=== PATIENT | female | born 1945 ===

== ENCOUNTER 2020-12-01 21:46 | Inpatient (IN) | payer MEDICARE ==
[2020-12-02] MEDS: ACETAMINOPHEN 325 MG TAB PO PRN (02:33)
[2020-12-02] MEDS: traZODone 50 MG TAB PO SCH ×2 (02:33→21:07)
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
--- NOTE | 2020-12-02 11:58 | Consultation ---
History of Present Illness - Reason for Consult Consult date: 12/02/20 Medical management Requesting physician: VIKAS GIBBONS - History of Present Illness 75 YO Female with Vascular Dementia with Behavioral Disturbance, Cerebral Atherosclerosis, HTN, DM, GERD, WILFREDO, UTI diagnosed prior to admission and treated with Bactrim admitted to [facility] for Psychiatric Stabilization. Patient seen and evaluated in the recreation room. Patient resting comfortably and denies complaints. Patient denies fever, chills, chest pain, palpitation, productive cough, skin rash, recent ill contacts, or known exposure to COVID-19. No reported nursing events. Patient cooperative with exam and interview. Past History Past Medical History: diabetes, GERD, hypertension, other (See HPI) Past Surgical History: hysterectomy (Lumbar fusion, shoulder surgery), hernia repair Social history: . denies: smoking, alcohol abuse, prescription drug abuse Family history: diabetes, hypertension Medications and Allergies Allergies Allergy/AdvReac Type Severity Reaction Status Date / Time codeine Allergy Unknown Verified 12/01/20 22:03 morphine Allergy Unknown Verified 12/01/20 22:06 NSAIDS (Non-Steroidal Allergy Unknown Verified 12/01/20 22:06 Anti-Inflamma Home Medications Medication Instructions Recorded Confirmed Last Taken Type ARIPiprazole [Abilify] 20 mg PO HS 12/01/20 12/01/20 Unknown History Albuterol Sulfate [Proventil Hfa] 90 mcg IH Q6H 12/01/20 12/01/20 Unknown History Benztropine [Cogentin] 2 mg PO BID 12/01/20 12/01/20 Unknown History Budesonide-Formoterol 160-4.5 2 puff INHALATION BID 12/01/20 12/01/20 Unknown History Citalopram [Celexa] 20 mg PO HS 12/01/20 12/01/20 Unknown History Fluticasone/Umeclidin/Vilanter 1 puff INHALATION DAILY 12/01/20 12/01/20 Unknown History Gabapentin 300 mg PO BID 12/01/20 12/01/20 Unknown History Levalbuterol HCl [Xopenex] 1 ampul TID 12/01/20 12/01/20 Unknown History Losartan-Hctz 100-25 mg Tab 1 tab PO DAILY 12/01/20 12/01/20 Unknown History Mirabegron [Myrbetriq] 50 mg PO QDAY 12/01/20 12/01/20 Unknown History Multivitamin Tab [Multiple Vitamin 1 tab PO DAILY 12/01/20 12/01/20 Unknown History TAB (Theragran)] amLODIPine [Norvasc] 10 mg PO DAILY 12/01/20 12/01/20 Unknown History donepeziL [Aricept] 5 mg PO HS 12/01/20 12/01/20 Unknown History hydrOXYzine HCL [Atarax] 1 tab PO Q8H PRN 12/01/20 12/01/20 Unknown History lamoTRIgine [LaMICtal] 200 mg PO HS 12/01/20 12/01/20 Unknown History oxyCODONE /ACETAMINOPHEN [Percocet 1 tab PO Q6HR PRN 12/01/20 12/01/20 Unknown History 5/325] Active Meds: Active Medications Acetaminophen (Acetaminophen 325 Mg Tab) 650 mg PO Q6H PRN PRN Reason: Pain, Mild (1-3) Last Admin: 12/02/20 02:33 Dose: 650 mg Documented by: Melatonin (Melatonin 5 Mg Tab) 5 mg PO QHS PRN PRN Reason: Sleep Trazodone HCl (Trazodone 50 Mg Tab) 50 mg PO QHS BHAVESH Last Admin: 12/02/20 02:33 Dose: 50 mg Documented by: Review of Systems Constitutional: no weight loss, no weight gain, no fever Ears, nose, mouth and throat: no ear pain, no ear discharge, no decreased hearing, no nasal congestion, no nasal discharge Breasts: no change in shape, no swelling, no mass Cardiovascular: no chest pain, no palpitations, no edema, no syncope Respiratory: no cough, no hemoptysis, no shortness of breath, no dyspnea on exertion Gastrointestinal: no nausea, no vomiting, no diarrhea Genitourinary Female: no pelvic pain, no flank pain, no dysuria, no urinary frequency, no urgency, no stress incontinence Rectal: no pain, no incontinence, no bleeding Musculoskeletal: no neck stiffness, no shooting arm pain, no arm numbness/tingling, no low back pain Integumentary: no rash, no pruritis, no redness, no sores Neurological: no head injury, no transient paralysis, no weakness, no parathesias, no numbness, no tingling Endocrine: no cold intolerance, no heat intolerance, no polyphagia, no polyuria Hematologic/Lymphatic: no easy bruising, no lymphadenopathy, no lymphedema Allergic/Immunologic: no persistent infections Exam - Constitutional Vitals: Temp Pulse Resp BP Pulse Ox 99.1 F 75 20 117/56 93 12/02/20 10:29 12/02/20 10:29 12/02/20 10:29 12/02/20 10:29 12/02/20 10:29 General appearance: Present: no acute distress, well-nourished - EENT Eyes: Present: PERRL ENT: hearing intact, clear oral mucosa - Neck Neck: Present: supple, normal ROM - Respiratory Respiratory effort: normal Respiratory: bilateral: CTA - Cardiovascular Heart Sounds: Present: S1 & S2. Absent: rub, click - Extremities Extremities: pulses symmetrical, No edema Peripheral Pulses: within normal limits - Abdominal General gastrointestinal: Present: soft, non-tender, non-distended, normal bowel sounds Female genitourinary: Present: normal - Integumentary Integumentary: Present: clear, warm, dry - Musculoskeletal Musculoskeletal: gait normal, strength equal bilaterally - Psychiatric Psychiatric: cooperative - Neurologic Neurologic: CNII-XII intact, moves all extremities Assessment and Plan - Patient Problems (1) Vascular dementia with behavioral disturbance Current Visit: Yes Status: Acute Plan to address problem: Verbal prompting, verbal redirection, benzodiazepine therapy as clinically indicated. (2) Cerebral atherosclerosis Current Visit: Yes Status: Acute Plan to address problem: Antiplatelet therapy as clinically indicated, supportive care, risk factor reduction. (3) Hypertension Current Visit: Yes Status: Acute Qualifiers: Hypertension type: essential hypertension Qualified Code(s): I10 - Essential (primary) hypertension Plan to address problem: Monitor blood pressure every shift, continue medical management (4) Diabetes Current Visit: Yes Status: Acute Plan to address problem: Insulin protocol, Accu-Chek, consistent carbohydrate diet, hypoglycemia protocol. (5) UTI (urinary tract infection) Current Visit: Yes Status: Acute Qualifiers: Encounter type: initial encounter Plan to address problem: Continue full course antibiotic therapy with Bactrim.
[2020-12-02] MEDS ORDERED: ALBUTEROL 8.5 GM MDI INHALATION IH SCH (12:00)
[2020-12-02] MEDS: SULFAMETHOXAZOLE/TRIMETHOPRIM 800/160MG DS TAB PO SCH ×2 (16:40→21:07)
[2020-12-02] MEDS: DONEPEZIL 5 MG TAB PO SCH (21:07)
[2020-12-02] MEDS: GABAPENTIN 300 MG CAP PO SCH (21:07)
[2020-12-02] MEDS: lamoTRIgine 100 MG TAB PO SCH (21:07)
[2020-12-02] MEDS: ARIPiprazole 10 MG TAB PO SCH (21:07)
[2020-12-02] MEDS: BUDESONIDE 0.5 MG/2 ML NEBU IH SCH (21:43)
[2020-12-02] MEDS: ARFORMOTEROL 15 MCG/2 ML NEBU IH SCH (21:43)
[2020-12-02] MEDS: ALBUTEROL 2.5 MG/3 ML NEBU IH SCH ×2 (21:44→21:45)
[2020-12-02] MEDS ORDERED: NON-FORMULARY EACH (Gabapentin 300 MG) PO SCH (22:00)
[2020-12-02] MEDS ORDERED: NON-FORMULARY EACH (Aripiprazole [Abilify] 20 MG Tablet) PO SCH (22:00)
[2020-12-02] MEDS ORDERED: NON-FORMULARY EACH (Lamotrigine [Lamictal] 200 MG Tablet) PO SCH (22:00)
[2020-12-02] MEDS ORDERED: NON-FORMULARY EACH (Budesonide-Formoterol 160-4.5 2 PUFF) INHALATION SCH (22:00)
[2020-12-03 00:27] LABS: Basophils % (Auto) 0.3 % (0.0-1.8); Eosinophils # (Auto) 0.1 K/mm3 (0.0-0.4); Eosinophils % (Auto) 1.3 % (0.0-4.3); Hematocrit 35.5 % (30.3-42.9); Hemoglobin 11.6 gm/dl (10.1-14.3); Lymphocytes # (Auto) 1.4 K/mm3 (1.2-5.4); Lymphocytes % (Auto) 22.4 % (13.4-35.0); Mean Corpuscular HGB Conc 33 % (30-34); Mean Corpuscular Volume 87 fl (79-97); Monocytes # (Auto) 0.7 K/mm3 (0.0-0.8); Platelet Count 296 K/mm3 (140-440); Red Blood Count 4.09 M/mm3 (3.65-5.03); Red Cell Distribution Width 15.7 % (13.2-15.2)
[2020-12-03 00:43] LABS: Alanine Aminotransferase 11 units/L (7-56); Albumin 3.9 g/dL (3.9-5); BUN/Creatinine Ratio 16; Blood Urea Nitrogen 13 mg/dL (7-17); Calcium 9.8 mg/dL (8.4-10.2); Chol/HDL Ratio 3.05 %; HDL Cholesterol 51 mg/dL (40-59); Hemolysis Index 37; LDL Cholesterol,Direct 100 mg/dL (50-130)
[2020-12-03] MEDS: ALBUTEROL 2.5 MG/3 ML NEBU IH SCH ×3 (02:06→15:58)
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
[2020-12-03] MEDS: SULFAMETHOXAZOLE/TRIMETHOPRIM 800/160MG DS TAB PO SCH ×2 (09:05→21:32)
[2020-12-03] MEDS: amLODIPine 10 MG TAB PO SCH (09:05)
[2020-12-03] MEDS: MULTIVITAMINS ,THERAPEUTIC TAB PO SCH (09:06)
[2020-12-03] MEDS: LOSARTAN 50 MG TAB PO SCH (09:06)
[2020-12-03] MEDS: GABAPENTIN 300 MG CAP PO SCH ×2 (09:06→21:33)
[2020-12-03] MEDS ORDERED: LOSARTAN HCTZ PO SCH (10:00)
[2020-12-03] MEDS: BUDESONIDE 0.5 MG/2 ML NEBU IH SCH ×2 (10:22→15:50)
[2020-12-03] MEDS: ARFORMOTEROL 15 MCG/2 ML NEBU IH SCH ×2 (10:22→16:08)
[2020-12-03] MEDS: ACETAMINOPHEN 325 MG TAB PO PRN (21:31)
[2020-12-03] MEDS: ARIPiprazole 10 MG TAB PO SCH (21:31)
[2020-12-03] MEDS: traZODone 50 MG TAB PO SCH (21:33)
[2020-12-03] MEDS: DONEPEZIL 5 MG TAB PO SCH (21:33)
[2020-12-03] MEDS: lamoTRIgine 100 MG TAB PO SCH (21:33)
[2020-12-04] MEDS: oxyCODONE /ACETAMINOPHEN 5-325MG TAB PO PRN ×3 (00:10→20:13)
--- NOTE | 2020-12-04 07:41 | Progress Note ---
Subjective Date of service: 12/04/20 Principal diagnosis: MDD Subjective Comment: Per Nurse: Pt had a restless night with < 1 hour of sleep. Observed at each round making facial grimacing despite she was medicated x 3 for pain with last Percocet given 06 and given Melatonin PRN. Will continue to monitor. Psych Progress Patient seen this a.m., patient states that she feels better, still slightly depressed but no longer suicidal today per patient but complains of anxiety and mild irritation. Poor sleep, very disturbed night. Reason to continue inpatient psychiatric hospitalization: Persistent depression, insomnia, irritablity, resolving suicidal ideations. REVIEW OF SYSTEMS Constitutional: Negative for weight loss ENT: Negative for stridor Respiratory: Negative for cough or hemoptysis All other systems reviewed and are negative MENTAL STATUS EXAMINATION General Appearance and Behavior: Age appropriate, good hygiene, wearing appropriate clothes,, good eye contact Cooperation: Participating/engaged, but Guarded Psychomotor Behavior: Psychomotor normal Mood:"I feel better but still depressed" Affect and affective range: congruent with mood. Thought Process: illogical Thought Content: hopelessness, helplessness Speech: Normal rate, volume and rythm Intellectual Functioning: Average Suicidal Ideation: SI Homicidal Ideation: Denies HI Impulse Control: Impaired Insight and Judgment: Limited insight and judgment Memory: Normal Attention: Normal Orientation: Alert, oriented. Assessment and Plan - Psychiatric problem (1) MDD (major depressive disorder) Current Visit: Yes Status: Acute F32.9 Treatment Plan Psychotherapy support, Patient switched to Remeron to improve sleep, Patient admitted for inpatient psychiatric evaluation, medication adjustment and close monitoring The patient's behavior, mood, sleep and appetite will be closely monitored. Patient enrolled in individual and group therapeutic sessions and encouraged to attend. Patient provided with a safe and structured environment. Patient's physical health needs will be addressed by the Hospitalist. Hospitalist Consulted Labs including CBC, CMP, Lipid profile and Hemoglobin A1C levels ordered for baseline reference Social Assessment will be completed and the Rooming House Operator will work with patient and family to ensure a suitable and safe disposition Medication adjustment will be made as clinically indicated Usual Wellness Jainism/Preservation: - Start Trazodone 50 mg po QHS & 50 mg po QHS PRN between 10 PM & 2 AM for insomnia - Start Melatonin 5 mg po QHS to promote circadian rhythm - Start [place]-3 for brain health, reduce impulsivity, and as adjunctive treatment for mood disorder, continue upon discharge given overall benefits. - Start B1 prophylaxis with 200 mg po for 5 days The patient agreed on the treatment plan, understood the risk, benefit, alternative treatment, potential consequence of no treatment, and gave informed consent. Initial Certification Inpatient psych services: I certify that the inpatient psychiatric services are required for treatment that could reasonably be expected to improve the patient's condition. Estimated days: 6 Post hospital care: primary care provider, psychiatric provider Assessment and Plan - Patient Problems (1) MDD (major depressive disorder) Current Visit: Yes Status: Acute Medications and Allergies Allergies Allergy/AdvReac Type Severity Reaction Status Date / Time codeine Allergy Unknown Verified 12/01/20 22:03 morphine Allergy Unknown Verified 12/01/20 22:06 NSAIDS (Non-Steroidal Allergy Unknown Verified 12/01/20 22:06 Anti-Inflamma Home Medications Medication Instructions Recorded Confirmed Last Taken Type ARIPiprazole [Abilify] 20 mg PO HS 12/01/20 12/01/20 Unknown History Albuterol Sulfate [Proventil Hfa] 90 mcg IH Q6H 12/01/20 12/01/20 Unknown History Benztropine [Cogentin] 2 mg PO BID 12/01/20 12/01/20 Unknown History Budesonide-Formoterol 160-4.5 2 puff INHALATION BID 12/01/20 12/01/20 Unknown History Citalopram [Celexa] 20 mg PO HS 12/01/20 12/01/20 Unknown History Fluticasone/Umeclidin/Vilanter 1 puff INHALATION DAILY 12/01/20 12/01/20 Unknown History Gabapentin 300 mg PO BID 12/01/20 12/01/20 Unknown History Levalbuterol HCl [Xopenex] 1 ampul TID 12/01/20 12/01/20 Unknown History Losartan-Hctz 100-25 mg Tab 1 tab PO DAILY 12/01/20 12/01/20 Unknown History Mirabegron [Myrbetriq] 50 mg PO QDAY 12/01/20 12/01/20 Unknown History Multivitamin Tab [Multiple Vitamin 1 tab PO DAILY 12/01/20 12/01/20 Unknown History TAB (Theragran)] amLODIPine [Norvasc] 10 mg PO DAILY 12/01/20 12/01/20 Unknown History donepeziL [Aricept] 5 mg PO HS 12/01/20 12/01/20 Unknown History hydrOXYzine HCL [Atarax] 1 tab PO Q8H PRN 12/01/20 12/01/20 Unknown History lamoTRIgine [LaMICtal] 200 mg PO HS 12/01/20 12/01/20 Unknown History oxyCODONE /ACETAMINOPHEN [Percocet 1 tab PO Q6HR PRN 12/01/20 12/01/20 Unknown History 5/325] Active Meds: Active Medications Acetaminophen (Acetaminophen 325 Mg Tab) 650 mg PO Q6H PRN PRN Reason: Pain, Mild (1-3) Last Admin: 12/03/20 21:31 Dose: 650 mg Documented by: Albuterol (Albuterol 2.5 Mg/3 Ml Nebu) 2.5 mg IH Q6HRT [facility] Last Admin: 12/03/20 15:58 Dose: 2.5 mg Documented by: Amlodipine Besylate (Amlodipine 10 Mg Tab) 10 mg PO DAILY [facility] Last Admin: 12/03/20 09:05 Dose: 10 mg Documented by: Arformoterol Tartrate (Arformoterol 15 Mcg/2 Ml Nebu) 15 mcg IH Q12HRT [facility] Last Admin: 12/03/20 16:08 Dose: 15 mcg Documented by: Aripiprazole (Aripiprazole 10 Mg Tab) 20 mg PO [facility] Last Admin: 12/03/20 21:31 Dose: 20 mg Documented by: Budesonide (Budesonide 0.5 Mg/2 Ml Nebu) 1 mg IH Q12HRT [facility] Last Admin: 12/03/20 15:50 Dose: 1 mg Documented by: Donepezil HCl (Donepezil 5 Mg Tab) 5 mg PO [facility] Last Admin: 12/03/20 21:33 Dose: 5 mg Documented by: Gabapentin (Gabapentin 300 Mg Cap) 300 mg PO BID [facility] Last Admin: 12/03/20 21:33 Dose: 300 mg Documented by: Lamotrigine (Lamotrigine 100 Mg Tab) 200 mg PO [facility] Last Admin: 12/03/20 21:33 Dose: 200 mg Documented by: Losartan Potassium (Losartan 50 Mg Tab) 100 mg PO QDAY [facility] Last Admin: 12/03/20 09:06 Dose: 100 mg Documented by: Melatonin (Melatonin 5 Mg Tab) 5 mg PO QHS PRN PRN Reason: Sleep Multivitamins (Multivitamins ,Therapeutic Tab) 1 each PO DAILY [facility] Last Admin: 12/03/20 09:06 Dose: 1 each Documented by: Oxycodone/Acetaminophen (Oxycodone /Acetaminophen 5-325mg Tab) 1 tab PO Q6HR PRN PRN Reason: PAIN Last Admin: 12/04/20 06:38 Dose: 1 tab Documented by: Trazodone HCl (Trazodone 50 Mg Tab) 50 mg PO QHS [facility] Last Admin: 12/03/20 21:33 Dose: 50 mg Documented by: Trimethoprim/Sulfamethoxazole (Sulfamethoxazole/Trimethoprim 800/160mg Ds Tab) 1 each PO Q12HR [facility]; Protocol Stop: 12/07/20 13:59 Last Admin: 12/03/20 21:32 Dose: 1 each Documented by: Results - Results Labs/Vitals: Laboratory Last Values WBC 6.4 K/mm3 (4.5-11.0) 12/02/20 23:25 RBC 4.09 M/mm3 (3.65-5.03) 12/02/20 23:25 Hgb 11.6 gm/dl (10.1-14.3) 12/02/20 23:25 Hct 35.5 % (30.3-42.9) 12/02/20 23:25 MCV 87 fl (79-97) 12/02/20 23:25 MCH 28 pg (28-32) 12/02/20 23:25 MCHC 33 % (30-34) 12/02/20 23:25 RDW 15.7 % (13.2-15.2) H 12/02/20 23:25 Plt Count 296 K/mm3 (140-440) 12/02/20 23:25 Lymph % (Auto) 22.4 % (13.4-35.0) 12/02/20 23:25 [place] % (Auto) 11.0 % (0.0-7.3) H 12/02/20 23:25 Eos % (Auto) 1.3 % (0.0-4.3) 12/02/20 23:25 Baso % (Auto) 0.3 % (0.0-1.8) 12/02/20 23:25 Lymph # (Auto) 1.4 K/mm3 (1.2-5.4) 12/02/20 23:25 [place] # (Auto) 0.7 K/mm3 (0.0-0.8) 12/02/20 23:25 Eos # (Auto) 0.1 K/mm3 (0.0-0.4) 12/02/20 23:25 Baso # (Auto) 0.0 K/mm3 (0.0-0.1) 12/02/20 23:25 Seg Neutrophils % 65.0 % (40.0-70.0) 12/02/20 23:25 Seg Neutrophils # 4.1 K/mm3 (1.8-7.7) 12/02/20 23:25 Sodium 135 mmol/L (137-145) L 12/02/20 23:25 Potassium 3.9 mmol/L (3.6-5.0) 12/02/20 23:25 Chloride 97.3 mmol/L (98-107) L 12/02/20 23:25 Carbon Dioxide 25 mmol/L (22-30) 12/02/20 23:25 Anion Gap 17 mmol/L 12/02/20 23:25 BUN 13 mg/dL (7-17) 12/02/20 23:25 Creatinine 0.8 mg/dL (0.6-1.2) 12/02/20 23:25 Estimated GFR > 60 ml/min 12/02/20 23:25 BUN/Creatinine Ratio 16 % 12/02/20 23:25 Glucose 105 mg/dL (65-100) H 12/02/20 23:25 POC Glucose 103 mg/dL (70-105) 12/03/20 06:25 Hemoglobin A1c 6.1 % (4-6) H 12/02/20 23:25 Calcium 9.8 mg/dL (8.4-10.2) 12/02/20 23:25 Total Bilirubin 0.20 mg/dL (0.1-1.2) 12/02/20 23:25 AST 19 units/L (5-40) 12/02/20 23:25 ALT 11 units/L (7-56) 12/02/20 23:25 Alkaline Phosphatase 76 units/L (35-129) 12/02/20 23:25 Total Protein 7.3 g/dL (6.3-8.2) 12/02/20 23:25 Albumin 3.9 g/dL (3.9-5) 12/02/20 23:25 Albumin/Globulin Ratio 1.1 % 12/02/20 23:25 Triglycerides 88 mg/dL (2-149) 12/02/20 23:25 Cholesterol 156 mg/dL (50-199) 12/02/20 23:25 LDL Cholesterol Direct 100 mg/dL (50-130) 12/02/20 23:25 HDL Cholesterol 51 mg/dL (40-59) 12/02/20 23:25 Cholesterol/HDL Ratio 3.05 % 12/02/20 23:25 TSH 1.460 mlU/mL (0.270-4.200) 12/02/20 23:25 Last Vital Signs Temp 99.5 F 12/03/20 22:00 Pulse 85 12/03/20 22:00 Resp 20 12/03/20 22:00 BP 121/67 12/03/20 22:00 Pulse Ox 94 12/03/20 22:00
[2020-12-04] MEDS: VALPROIC ACID 250 MG CAP PO SCH ×3 (09:06→21:13)
[2020-12-04] MEDS: GABAPENTIN 300 MG CAP PO SCH ×2 (09:07→21:12)
[2020-12-04] MEDS: SULFAMETHOXAZOLE/TRIMETHOPRIM 800/160MG DS TAB PO SCH ×2 (09:07→21:12)
[2020-12-04] MEDS: VENLAFAXINE XR 75 MG CAP PO SCH (09:07)
[2020-12-04] MEDS: amLODIPine 10 MG TAB PO SCH (09:08)
[2020-12-04] MEDS: LOSARTAN 50 MG TAB PO SCH (09:08)
[2020-12-04] MEDS: MULTIVITAMINS ,THERAPEUTIC TAB PO SCH (09:08)
[2020-12-04] MEDS: ALBUTEROL 2.5 MG/3 ML NEBU IH SCH ×3 (09:23→13:40)
[2020-12-04] MEDS: ONDANSETRON 4 MG ODT TAB PO PRN (15:22)
[2020-12-04] MEDS: MELATONIN 5 MG TAB PO PRN (20:07)
[2020-12-04] MEDS: MIRTAZAPINE 15 MG TAB PO SCH (21:12)
[2020-12-04] MEDS: lamoTRIgine 100 MG TAB PO SCH (21:12)
[2020-12-04] MEDS: DONEPEZIL 5 MG TAB PO SCH (21:14)
[2020-12-05] MEDS: ARFORMOTEROL 15 MCG/2 ML NEBU IH SCH ×2 (01:45→10:26)
[2020-12-05] MEDS: ALBUTEROL 2.5 MG/3 ML NEBU IH SCH ×2 (01:45→10:25)
[2020-12-05] MEDS: BUDESONIDE 0.5 MG/2 ML NEBU IH SCH ×2 (01:45→10:26)
[2020-12-05] MEDS: ONDANSETRON 4 MG ODT TAB PO PRN (07:36)
--- NOTE | 2020-12-05 07:44 | Progress Note ---
Subjective Date of service: 12/05/20 Principal diagnosis: MDD Subjective Comment: Per Nurse: pt spent the evening in her room, spoke to and daughter on the phone, pt is alert and oriented x3, calm and cooperative,flat affect with depressed mood, intermittently confused, denies suicidal thought, pt stated that she will pay for her room and activity room, pt redirected, able to make needs known, c/o of both shoulders pain rate pain at 6/10, percocet 5mg po gvien at 2012, pt reassess after an hour, pt reported that pain is relieved to 2/10, medication compliant, melatonin 5mg po given prn for sleep, pt is currently asleep, no episode of nausea and vomiting, no distress noted, will continue to monitor for safety. Psych Progress Patient seen today, reports resting well overngith, slept without disturbances, eats well and medication compliant. Patient states she feels sad this AM, for no apparent reason but denies suicidal thoughts. Reason to continue inpatient psychiatric hospitalization: Persistent depression, insomnia, irritablity, resolving suicidal ideations. REVIEW OF SYSTEMS Constitutional: Negative for weight loss ENT: Negative for stridor Respiratory: Negative for cough or hemoptysis All other systems reviewed and are negative MENTAL STATUS EXAMINATION General Appearance and Behavior: Age appropriate, good hygiene, wearing appropriate clothes,, good eye contact Cooperation: Participating/engaged, but Guarded Psychomotor Behavior: Psychomotor normal Mood:"I feel better but still depressed" Affect and affective range: congruent with mood. Thought Process: illogical Thought Content: hopelessness, helplessness Speech: Normal rate, volume and rythm Intellectual Functioning: Average Suicidal Ideation: SI Homicidal Ideation: Denies HI Impulse Control: Impaired Insight and Judgment: Limited insight and judgment Memory: Normal Attention: Normal Orientation: Alert, oriented. Assessment and Plan - Psychiatric problem (1) MDD (major depressive disorder) Current Visit: Yes Status: Acute F32.9 Treatment Plan Psychotherapy support, Patient switched to Remeron to improve sleep, Patient admitted for inpatient psychiatric evaluation, medication adjustment and close monitoring The patient's behavior, mood, sleep and appetite will be closely monitored. Patient enrolled in individual and group therapeutic sessions and encouraged to attend. Patient provided with a safe and structured environment. Patient's physical health needs will be addressed by the Hospitalist. Hospitalist Consulted Labs including CBC, CMP, Lipid profile and Hemoglobin A1C levels ordered for baseline reference Social Assessment will be completed and the Fur Stylist will work with patient and family to ensure a suitable and safe disposition Medication adjustment will be made as clinically indicated Usual Wellness Pentecostal/Preservation: - Start Trazodone 50 mg po QHS & 50 mg po QHS PRN between 10 PM & 2 AM for insomnia - Start Melatonin 5 mg po QHS to promote circadian rhythm - Start [place]-3 for brain health, reduce impulsivity, and as adjunctive treatment for mood disorder, continue upon discharge given overall benefits. - Start B1 prophylaxis with 200 mg po for 5 days The patient agreed on the treatment plan, understood the risk, benefit, alternative treatment, potential consequence of no treatment, and gave informed consent. Initial Certification Inpatient psych services: I certify that the inpatient psychiatric services are required for treatment that could reasonably be expected to improve the patient's condition. Estimated days: 3 Post hospital care: primary care provider, psychiatric provider Assessment and Plan - Patient Problems (1) MDD (major depressive disorder) Current Visit: Yes Status: Acute Medications and Allergies Allergies Allergy/AdvReac Type Severity Reaction Status Date / Time codeine Allergy Unknown Verified 12/01/20 22:03 morphine Allergy Unknown Verified 12/01/20 22:06 NSAIDS (Non-Steroidal Allergy Unknown Verified 12/01/20 22:06 Anti-Inflamma Home Medications Medication Instructions Recorded Confirmed Last Taken Type ARIPiprazole [Abilify] 20 mg PO HS 12/01/20 12/01/20 Unknown History Albuterol Sulfate [Proventil Hfa] 90 mcg IH Q6H 12/01/20 12/01/20 Unknown History Benztropine [Cogentin] 2 mg PO BID 12/01/20 12/01/20 Unknown History Budesonide-Formoterol 160-4.5 2 puff INHALATION BID 12/01/20 12/01/20 Unknown History Citalopram [Celexa] 20 mg PO HS 12/01/20 12/01/20 Unknown History Fluticasone/Umeclidin/Vilanter 1 puff INHALATION DAILY 12/01/20 12/01/20 Unknown History Gabapentin 300 mg PO BID 12/01/20 12/01/20 Unknown History Levalbuterol HCl [Xopenex] 1 ampul TID 12/01/20 12/01/20 Unknown History Losartan-Hctz 100-25 mg Tab 1 tab PO DAILY 12/01/20 12/01/20 Unknown History Mirabegron [Myrbetriq] 50 mg PO QDAY 12/01/20 12/01/20 Unknown History Multivitamin Tab [Multiple Vitamin 1 tab PO DAILY 12/01/20 12/01/20 Unknown History TAB (Theragran)] amLODIPine [Norvasc] 10 mg PO DAILY 12/01/20 12/01/20 Unknown History donepeziL [Aricept] 5 mg PO HS 12/01/20 12/01/20 Unknown History hydrOXYzine HCL [Atarax] 1 tab PO Q8H PRN 12/01/20 12/01/20 Unknown History lamoTRIgine [LaMICtal] 200 mg PO HS 12/01/20 12/01/20 Unknown History oxyCODONE /ACETAMINOPHEN [Percocet 1 tab PO Q6HR PRN 12/01/20 12/01/20 Unknown History 5/325] Active Meds: Active Medications Acetaminophen (Acetaminophen 325 Mg Tab) 650 mg PO Q6H PRN PRN Reason: Pain, Mild (1-3) Last Admin: 12/03/20 21:31 Dose: 650 mg Documented by: Albuterol (Albuterol 2.5 Mg/3 Ml Nebu) 2.5 mg IH Q6HRT [facility] Last Admin: 12/05/20 01:45 Dose: Not Given Documented by: Amlodipine Besylate (Amlodipine 10 Mg Tab) 10 mg PO DAILY [facility] Last Admin: 12/04/20 09:08 Dose: 10 mg Documented by: Arformoterol Tartrate (Arformoterol 15 Mcg/2 Ml Nebu) 15 mcg IH Q12HRT [facility] Last Admin: 12/05/20 01:45 Dose: Not Given Documented by: Budesonide (Budesonide 0.5 Mg/2 Ml Nebu) 1 mg IH Q12HRT [facility] Last Admin: 12/05/20 01:45 Dose: Not Given Documented by: Donepezil HCl (Donepezil 5 Mg Tab) 5 mg PO HS [facility] Last Admin: 12/04/20 21:14 Dose: 5 mg Documented by: Gabapentin (Gabapentin 300 Mg Cap) 300 mg PO BID [facility] Last Admin: 12/04/20 21:12 Dose: 300 mg Documented by: Lamotrigine (Lamotrigine 100 Mg Tab) 200 mg PO HS [facility] Last Admin: 12/04/20 21:12 Dose: 200 mg Documented by: Losartan Potassium (Losartan 50 Mg Tab) 100 mg PO QDAY [facility] Last Admin: 12/04/20 09:08 Dose: 100 mg Documented by: Melatonin (Melatonin 5 Mg Tab) 5 mg PO QHS PRN PRN Reason: Sleep Last Admin: 12/04/20 20:07 Dose: 5 mg Documented by: Mirtazapine (Mirtazapine 15 Mg Tab) 15 mg PO QHS [facility] Last Admin: 12/04/20 21:12 Dose: 15 mg Documented by: Multivitamins (Multivitamins ,Therapeutic Tab) 1 each PO DAILY [facility] Last Admin: 12/04/20 09:08 Dose: 1 each Documented by: Ondansetron HCl (Ondansetron 4 Mg Odt Tab) 4 mg PO Q8H PRN PRN Reason: Nausea And Vomiting Last Admin: 12/05/20 07:36 Dose: 4 mg Documented by: Oxycodone/Acetaminophen (Oxycodone /Acetaminophen 5-325mg Tab) 1 tab PO Q6HR PRN PRN Reason: PAIN Last Admin: 12/04/20 20:13 Dose: 1 tab Documented by: Trimethoprim/Sulfamethoxazole (Sulfamethoxazole/Trimethoprim 800/160mg Ds Tab) 1 each PO Q12HR [facility]; Protocol Stop: 12/07/20 13:59 Last Admin: 12/04/20 21:12 Dose: 1 each Documented by: Valproic Acid (Valproic Acid 250 Mg Cap) 250 mg PO TID [facility] Last Admin: 12/04/20 21:13 Dose: 250 mg Documented by: Venlafaxine HCl (Venlafaxine Xr 75 Mg Cap) 75 mg PO QDAY [facility] Last Admin: 12/04/20 09:07 Dose: 75 mg Documented by: Results - Results Labs/Vitals: Laboratory Last Values WBC 6.4 K/mm3 (4.5-11.0) 12/02/20 23:25 RBC 4.09 M/mm3 (3.65-5.03) 12/02/20 23:25 Hgb 11.6 gm/dl (10.1-14.3) 12/02/20 23:25 Hct 35.5 % (30.3-42.9) 12/02/20 23:25 MCV 87 fl (79-97) 12/02/20 23:25 MCH 28 pg (28-32) 12/02/20 23:25 MCHC 33 % (30-34) 12/02/20 23:25 RDW 15.7 % (13.2-15.2) H 12/02/20 23:25 Plt Count 296 K/mm3 (140-440) 12/02/20 23:25 Lymph % (Auto) 22.4 % (13.4-35.0) 12/02/20 23:25 [place] % (Auto) 11.0 % (0.0-7.3) H 12/02/20 23:25 Eos % (Auto) 1.3 % (0.0-4.3) 12/02/20: Baso % (Auto) 0.3 % (0.0-1.8) 12/02/20:25 Lymph # (Auto) 1.4 K/mm3 (1.2-5.4) 12/02/20 23:25 [place] # (Auto) 0.7 K/mm3 (0.0-0.8) 12/02/20: Eos # (Auto) 0.1 K/mm3 (0.0-0.4) 12/02/20 23: Baso # (Auto) 0.0 K/mm3 (0.0-0.1) 12/02/20 23:25 Seg Neutrophils % 65.0 % (40.0-70.0) 12/02/20: Seg Neutrophils # 4.1 K/mm3 (1.8-7.7) 12/02/20 23:25 Sodium 135 mmol/L (137-145) L 12/02/20 23:25 Potassium 3.9 mmol/L (3.6-5.0) 12/02/20 23:25 Chloride 97.3 mmol/L (98-107) L 12/02/20 23:25 Carbon Dioxide 25 mmol/L (22-30) 12/02/20 23:25 Anion Gap 17 mmol/L 12/02/20 23:25 BUN 13 mg/dL (7-17) 12/02/20 23:25 Creatinine 0.8 mg/dL (0.6-1.2) 12/02/20 23:25 Estimated GFR > 60 ml/min 12/02/20 23:25 BUN/Creatinine Ratio 16 % 12/02/20 23:25 Glucose 105 mg/dL (65-100) H 12/02/20 23:25 POC Glucose 103 mg/dL (70-105) 12/03/20 06:25 Hemoglobin A1c 6.1 % (4-6) H 12/02/20 23:25 Calcium 9.8 mg/dL (8.4-10.2) 12/02/20 23:25 Total Bilirubin 0.20 mg/dL (0.1-1.2) 12/02/20 23:25 AST 19 units/L (5-40) 12/02/20 23:25 ALT 11 units/L (7-56) 12/02/20 23:25 Alkaline Phosphatase 76 units/L (35-129) 12/02/20 23:25 Total Protein 7.3 g/dL (6.3-8.2) 12/02/20 23:25 Albumin 3.9 g/dL (3.9-5) 12/02/20 23:25 Albumin/Globulin Ratio 1.1 % 12/02/20 23:25 Triglycerides 88 mg/dL (2-149) 12/02/20 23:25 Cholesterol 156 mg/dL (50-199) 12/02/20 23:25 LDL Cholesterol Direct 100 mg/dL (50-130) 12/02/20 23:25 HDL Cholesterol 51 mg/dL (40-59) 12/02/20 23:25 Cholesterol/HDL Ratio 3.05 % 12/02/20 23:25 TSH 1.460 mlU/mL (0.270-4.200) 12/02/20 23:25 Last Vital Signs Temp 97.8 F 12/04/20 22:00 Pulse 86 12/04/20 22:00 Resp 14 12/04/20 22:00 BP 129/72 12/04/20 22:00 Pulse Ox 95 12/04/20 22:00
[2020-12-05] MEDS: MULTIVITAMINS ,THERAPEUTIC TAB PO SCH (09:03)
[2020-12-05] MEDS: VALPROIC ACID 250 MG CAP PO SCH ×3 (09:03→21:11)
[2020-12-05] MEDS: amLODIPine 10 MG TAB PO SCH (09:03)
[2020-12-05] MEDS: SULFAMETHOXAZOLE/TRIMETHOPRIM 800/160MG DS TAB PO SCH ×2 (09:04→21:11)
[2020-12-05] MEDS: VENLAFAXINE XR 75 MG CAP PO SCH (09:04)
[2020-12-05] MEDS: LOSARTAN 50 MG TAB PO SCH (09:04)
[2020-12-05] MEDS: GABAPENTIN 300 MG CAP PO SCH ×2 (09:04→21:11)
[2020-12-05] MEDS: MIRTAZAPINE 15 MG TAB PO SCH (21:10)
[2020-12-05] MEDS: lamoTRIgine 100 MG TAB PO SCH (21:11)
[2020-12-05] MEDS: oxyCODONE /ACETAMINOPHEN 5-325MG TAB PO PRN (21:11)
[2020-12-05] MEDS: DONEPEZIL 5 MG TAB PO SCH (21:13)
[2020-12-05] MEDS: MELATONIN 5 MG TAB PO PRN (21:13)
[2020-12-06] MEDS ORDERED: LORazepam 2 MG/ML VIAL IM PRN (01:29)
[2020-12-06] MEDS ORDERED: HALOPERIDOL LACTATE 5 MG/1 ML INJ IM PRN (01:30)
--- NOTE | 2020-12-06 08:06 | Progress Note ---
Subjective Date of service: 12/06/20 Principal diagnosis: MDD Subjective Comment: Per nursing staff: The patient has been fighting, kicking and attempting to get out of bed. The patient was given prn med for agitation. The patient is lying in the bed. She is awake and confused. The patient does greet me when I enter the room. She tells me "I wanna get up. I need to get up out of this bed." Reason to continue inpatient psychiatric hospitalization: The patient continues to be agitated and combative REVIEW OF SYSTEMS Constitutional: Negative for weight loss ENT: Negative for stridor Respiratory: Negative for cough or hemoptysis All other systems reviewed and are negative MENTAL STATUS EXAMINATION General Appearance and Behavior: Age appropriate, good hygiene, wearing appropriate clothes,, good eye contact Cooperation: Participating/engaged, but Guarded Psychomotor Behavior: Psychomotor normal Mood:"I feel better but still depressed" Affect and affective range: congruent with mood. Thought Process: illogical Thought Content: hopelessness, helplessness Speech: Normal rate, volume and rythm Intellectual Functioning: Average Suicidal Ideation: SI Homicidal Ideation: Denies HI Impulse Control: Impaired Insight and Judgment: Limited insight and judgment Memory: Normal Attention: Normal Orientation: Alert, oriented. Assessment and Plan (1) MDD (major depressive disorder) Current Visit: Yes Status: Acute F32.9 Treatment Plan Patient admitted for inpatient psychiatric evaluation, medication adjustment and close monitoring The patient's behavior, mood, sleep and appetite will be closely monitored. Patient enrolled in individual and group therapeutic sessions and encouraged to attend. Patient provided with a safe and structured environment. Patient's physical health needs will be addressed by the Hospitalist. Hospitalist Consulted Labs including CBC, CMP, Lipid profile and Hemoglobin A1C levels ordered for baseline reference Valproic level 11/11 Social Assessment will be completed and the House Sitter will work with patient and family to ensure a suitable and safe disposition Medication adjustment will be made as clinically indicated Increased Depakote 500mg po BID Usual Wellness Gnosticism/Preservation: - Start Trazodone 50 mg po QHS & 50 mg po QHS PRN between 10 PM & 2 AM for insomnia - Start Melatonin 5 mg po QHS to promote circadian rhythm - Start [place]-3 for brain health, reduce impulsivity, and as adjunctive treatment for mood disorder, continue upon discharge given overall benefits. - Start B1 prophylaxis with 200 mg po for 5 days The patient agreed on the treatment plan, understood the risk, benefit, alternative treatment, potential consequence of no treatment, and gave informed consent. Estimated days: 4 Post hospital care: primary care provider, psychiatric provider Medications and Allergies Allergies Allergy/AdvReac Type Severity Reaction Status Date / Time codeine Allergy Unknown Verified 12/01/20 22:03 morphine Allergy Unknown Verified 12/01/20 22:06 NSAIDS (Non-Steroidal Allergy Unknown Verified 12/01/20 22:06 Anti-Inflamma Home Medications Medication Instructions Recorded Confirmed Last Taken Type ARIPiprazole [Abilify] 20 mg PO HS 12/01/20 12/01/20 Unknown History Albuterol Sulfate [Proventil Hfa] 90 mcg IH Q6H 12/01/20 12/01/20 Unknown History Benztropine [Cogentin] 2 mg PO BID 12/01/20 12/01/20 Unknown History Budesonide-Formoterol 160-4.5 2 puff INHALATION BID 12/01/20 12/01/20 Unknown History Citalopram [Celexa] 20 mg PO HS 12/01/20 12/01/20 Unknown History Fluticasone/Umeclidin/Vilanter 1 puff INHALATION DAILY 12/01/20 12/01/20 Unknown History Gabapentin 300 mg PO BID 12/01/20 12/01/20 Unknown History Levalbuterol HCl [Xopenex] 1 ampul TID 12/01/20 12/01/20 Unknown History Losartan-Hctz 100-25 mg Tab 1 tab PO DAILY 12/01/20 12/01/20 Unknown History Mirabegron [Myrbetriq] 50 mg PO QDAY 12/01/20 12/01/20 Unknown History Multivitamin Tab [Multiple Vitamin 1 tab PO DAILY 12/01/20 12/01/20 Unknown History TAB (Theragran)] amLODIPine [Norvasc] 10 mg PO DAILY 12/01/20 12/01/20 Unknown History donepeziL [Aricept] 5 mg PO HS 12/01/20 12/01/20 Unknown History hydrOXYzine HCL [Atarax] 1 tab PO Q8H PRN 12/01/20 12/01/20 Unknown History lamoTRIgine [LaMICtal] 200 mg PO HS 12/01/20 12/01/20 Unknown History oxyCODONE /ACETAMINOPHEN [Percocet 1 tab PO Q6HR PRN 12/01/20 12/01/20 Unknown History ] Active Meds: Active Medications Acetaminophen (Acetaminophen 325 Mg Tab) 650 mg PO Q6H PRN PRN Reason: Pain, Mild (1-3) Last Admin: 12/03/20 21:31 Dose: 650 mg Documented by: Albuterol (Albuterol 2.5 Mg/3 Ml Nebu) 2.5 mg IH Q6HRT [facility] Last Admin: 12/05/20 10:25 Dose: 2.5 mg Documented by: Amlodipine Besylate (Amlodipine 10 Mg Tab) 10 mg PO DAILY [facility] Last Admin: 12/05/20 09:03 Dose: 10 mg Documented by: Arformoterol Tartrate (Arformoterol 15 Mcg/2 Ml Nebu) 15 mcg IH Q12HRT [facility] Last Admin: 12/05/20 10:26 Dose: 15 mcg Documented by: Budesonide (Budesonide 0.5 Mg/2 Ml Nebu) 1 mg IH Q12HRT [facility] Last Admin: 12/05/20 10:26 Dose: 1 mg Documented by: Donepezil HCl (Donepezil 5 Mg Tab) 5 mg PO HS [facility] Last Admin: 12/05/20 21:13 Dose: 5 mg Documented by: Gabapentin (Gabapentin 300 Mg Cap) 300 mg PO BID [facility] Last Admin: 12/05/20 21:11 Dose: 300 mg Documented by: Haloperidol Lactate (Haloperidol Lactate 5 Mg/1 Ml Inj) 5 mg IM Q6H PRN PRN Reason: Agitation Last Admin: 12/06/20 01:49 Dose: 5 mg Documented by: Lamotrigine (Lamotrigine 100 Mg Tab) 200 mg PO HS [facility] Last Admin: 12/05/20 21:11 Dose: 200 mg Documented by: Lorazepam (Lorazepam 2 Mg/Ml Vial) 2 mg IM Q6H PRN PRN Reason: Agitation Last Admin: 12/06/20 01:49 Dose: 2 mg Documented by: Losartan Potassium (Losartan 50 Mg Tab) 100 mg PO QDAY [facility] Last Admin: 12/05/20 09:04 Dose: 100 mg Documented by: Melatonin (Melatonin 5 Mg Tab) 5 mg PO QHS PRN PRN Reason: Sleep Last Admin: 02/25/21 21:13 Dose: 5 mg Documented by: Mirtazapine (Mirtazapine 15 Mg Tab) 15 mg PO QHS [facility] Last Admin: 12/05/20 21:10 Dose: 15 mg Documented by: Multivitamins (Multivitamins ,Therapeutic Tab) 1 each PO DAILY [facility] Last Admin: 12/05/20 09:03 Dose: 1 each Documented by: Ondansetron HCl (Ondansetron 4 Mg Odt Tab) 4 mg PO Q8H PRN PRN Reason: Nausea And Vomiting Last Admin: 12/05/20 07:36 Dose: 4 mg Documented by: Oxycodone/Acetaminophen (Oxycodone /Acetaminophen 5-325mg Tab) 1 tab PO Q6HR PRN PRN Reason: PAIN Last Admin: 12/05/20 21:11 Dose: 1 tab Documented by: Trimethoprim/Sulfamethoxazole (Sulfamethoxazole/Trimethoprim 800/160mg Ds Tab) 1 each PO Q12HR [facility]; Protocol Stop: 12/07/20 13:59 Last Admin: 12/05/20 21:11 Dose: 1 each Documented by: Valproic Acid (Valproic Acid 250 Mg Cap) 250 mg PO TID [facility] Last Admin: 12/05/20 21:11 Dose: 250 mg Documented by: Venlafaxine HCl (Venlafaxine Xr 75 Mg Cap) 75 mg PO QDAY [facility] Last Admin: 12/05/20 09:04 Dose: 75 mg Documented by: Results - Results Labs/Vitals: Laboratory Last Values WBC 6.4 K/mm3 (4.5-11.0) 12/02/20 23:25 RBC 4.09 M/mm3 (3.65-5.03) 12/02/20 23:25 Hgb 11.6 gm/dl (10.1-14.3) 12/02/20 23:25 Hct 35.5 % (30.3-42.9) 12/02/20 23:25 MCV 87 fl (79-97) 12/02/20 23:25 MCH 28 pg (28-32) 12/02/20 23:25 MCHC 33 % (30-34) 12/02/20 23:25 RDW 15.7 % (13.2-15.2) H 12/02/20 23:25 Plt Count 296 K/mm3 (140-440) 12/02/20 23:25 Lymph % (Auto) 22.4 % (13.4-35.0) 12/02/20 23:25 [place] % (Auto) 11.0 % (0.0-7.3) H 12/02/20 23:25 Eos % (Auto) 1.3 % (0.0-4.3) 12/02/20 23:25 Baso % (Auto) 0.3 % (0.0-1.8) 12/02/20 23:25 Lymph # (Auto) 1.4 K/mm3 (1.2-5.4) 12/02/20 23:25 [place] # (Auto) 0.7 K/mm3 (0.0-0.8) 12/02/20 23:25 Eos # (Auto) 0.1 K/mm3 (0.0-0.4) 12/02/20 23:25 Baso # (Auto) 0.0 K/mm3 (0.0-0.1) 12/02/20 23:25 Seg Neutrophils % 65.0 % (40.0-70.0) 12/02/20 23:25 Seg Neutrophils # 4.1 K/mm3 (1.8-7.7) 12/02/20 23:25 Sodium 135 mmol/L (137-145) L 12/02/20 23:25 Potassium 3.9 mmol/L (3.6-5.0) 12/02/20 23:25 Chloride 97.3 mmol/L (98-107) L 12/02/20 23:25 Carbon Dioxide 25 mmol/L (22-30) 12/02/20 23:25 Anion Gap 17 mmol/L 12/02/20 23:25 BUN 13 mg/dL (7-17) 12/02/20 23:25 Creatinine 0.8 mg/dL (0.6-1.2) 12/02/20 23:25 Estimated GFR > 60 ml/min 12/02/20 23:25 BUN/Creatinine Ratio 16 % 12/02/20 23:25 Glucose 105 mg/dL (65-100) H 12/02/20 23:25 POC Glucose 93 mg/dL (70-105) 12/05/20 22:02 Hemoglobin A1c 6.1 % (4-6) H 12/02/20 23:25 Calcium 9.8 mg/dL (8.4-10.2) 12/02/20 23:25 Total Bilirubin 0.20 mg/dL (0.1-1.2) 12/02/20 23:25 AST 19 units/L (5-40) 12/02/20 23:25 ALT 11 units/L (7-56) 12/02/20 23:25 Alkaline Phosphatase 76 units/L (35-129) 12/02/20 23:25 Total Protein 7.3 g/dL (6.3-8.2) 12/02/20 23:25 Albumin 3.9 g/dL (3.9-5) 12/02/20 23:25 Albumin/Globulin Ratio 1.1 % 12/02/20 23:25 Triglycerides 88 mg/dL (2-149) 12/02/20 23:25 Cholesterol 156 mg/dL (50-199) 12/02/20 23:25 LDL Cholesterol Direct 100 mg/dL (50-130) 12/02/20 23:25 HDL Cholesterol 51 mg/dL (40-59) 12/02/20 23:25 Cholesterol/HDL Ratio 3.05 % 12/02/20 23:25 TSH 1.460 mlU/mL (0.270-4.200) 12/02/20 23:25 Last Vital Signs Temp 98.7 F 12/05/20 19:26 Pulse 78 12/05/20 19:26 Resp 18 12/05/20 21:11 BP 128/58 12/05/20 19:26 Pulse Ox 87 12/05/20 19:26
[2020-12-06] MEDS: VALPROIC ACID 250 MG CAP PO SCH ×3 (08:48→21:32)
[2020-12-06] MEDS: SULFAMETHOXAZOLE/TRIMETHOPRIM 800/160MG DS TAB PO SCH ×2 (09:19→21:31)
[2020-12-06] MEDS: VENLAFAXINE XR 75 MG CAP PO SCH (09:19)
[2020-12-06] MEDS: MULTIVITAMINS ,THERAPEUTIC TAB PO SCH (09:19)
[2020-12-06] MEDS: LOSARTAN 50 MG TAB PO SCH (09:20)
[2020-12-06] MEDS: GABAPENTIN 300 MG CAP PO SCH ×2 (09:20→21:33)
[2020-12-06] MEDS: amLODIPine 10 MG TAB PO SCH (09:20)
[2020-12-06] MEDS: BUDESONIDE 0.5 MG/2 ML NEBU IH SCH ×2 (09:34→09:40)
[2020-12-06] MEDS: ARFORMOTEROL 15 MCG/2 ML NEBU IH SCH ×4 (09:35→09:43)
[2020-12-06] MEDS: ALBUTEROL 2.5 MG/3 ML NEBU IH SCH ×4 (09:39→14:55)
[2020-12-06] MEDS: DONEPEZIL 5 MG TAB PO SCH (21:31)
[2020-12-06] MEDS: MIRTAZAPINE 15 MG TAB PO SCH (21:32)
[2020-12-06] MEDS: lamoTRIgine 100 MG TAB PO SCH (21:32)
--- NOTE | 2020-12-07 09:29 | Progress Note ---
Subjective Date of service: 12/07/20 Principal diagnosis: MDD Subjective Comment: Per nursing staff: 0900 Pt. looks sleepy, states that she is still depressed, SI with no plan. Denies hearing strange voices. 02 at 2L in progress. She ate 100% of her breakfast. Will continue to monitor. The patient was seen today. She appears drowsy but is still able to talk to me. She is confused. She is pleasant and asks me how I was doing. She says "I'm not doing too good." When asking the patient why, she says "everything is wrong." She then starts talking nonsensical. She says "I'm trying to make a living." Reason to continue inpatient psychiatric hospitalization: The patient continues to be agitated and combative at times. The nurse note also states the patient expressed depression with SI. REVIEW OF SYSTEMS Constitutional: Negative for weight loss ENT: Negative for stridor Respiratory: Negative for cough or hemoptysis All other systems reviewed and are negative MENTAL STATUS EXAMINATION General Appearance and Behavior: Age appropriate, good hygiene, wearing appropriate clothes,, good eye contact Cooperation: Participating/engaged, but Guarded Psychomotor Behavior: Psychomotor normal Mood:"I feel better but still depressed" Affect and affective range: congruent with mood. Thought Process: illogical Thought Content: hopelessness, helplessness Speech: Normal rate, volume and rhythm Intellectual Functioning: Average Suicidal Ideation: SI Homicidal Ideation: Denies HI Impulse Control: Impaired Insight and Judgment: Limited insight and judgment Memory: Normal Attention: Normal Orientation: Alert, oriented. Assessment and Plan (1) MDD (major depressive disorder) Current Visit: Yes Status: Acute F32.9 Treatment Plan Patient admitted for inpatient psychiatric evaluation, medication adjustment and close monitoring The patient's behavior, mood, sleep and appetite will be closely monitored. Patient enrolled in individual and group therapeutic sessions and encouraged to attend. Patient provided with a safe and structured environment. Patient's physical health needs will be addressed by the Hospitalist. Hospitalist Consulted Labs including CBC, CMP, Lipid profile and Hemoglobin A1C levels ordered for baseline reference Valproic level 11/11 Social Assessment will be completed and the Ui Lead Developer will work with patient and family to ensure a suitable and safe disposition Medication adjustment will be made as clinically indicated Increased Depakote 500mg po BID yesterday No changes today Usual Wellness Amish/Preservation: - Start Trazodone 50 mg po QHS & 50 mg po QHS PRN between 10 PM & 2 AM for insomnia - Start Melatonin 5 mg po QHS to promote circadian rhythm - Start [place]-3 for brain health, reduce impulsivity, and as adjunctive treatment for mood disorder, continue upon discharge given overall benefits. - Start B1 prophylaxis with 200 mg po for 5 days The patient agreed on the treatment plan, understood the risk, benefit, alternative treatment, potential consequence of no treatment, and gave informed consent. Estimated days: 4 Post hospital care: primary care provider, psychiatric provider Medications and Allergies Allergies Allergy/AdvReac Type Severity Reaction Status Date / Time codeine Allergy Unknown Verified 12/01/20 22:03 morphine Allergy Unknown Verified 12/01/20 22:06 NSAIDS (Non-Steroidal Allergy Unknown Verified 12/01/20 22:06 Anti-Inflamma Home Medications Medication Instructions Recorded Confirmed Last Taken Type ARIPiprazole [Abilify] 20 mg PO HS 12/01/20 12/01/20 Unknown History Albuterol Sulfate [Proventil Hfa] 90 mcg IH Q6H 12/01/20 12/01/20 Unknown History Benztropine [Cogentin] 2 mg PO BID 12/01/20 12/01/20 Unknown History Budesonide-Formoterol 160-4.5 2 puff INHALATION BID 12/01/20 12/01/20 Unknown History Citalopram [Celexa] 20 mg PO HS 12/01/20 12/01/20 Unknown History Fluticasone/Umeclidin/Vilanter 1 puff INHALATION DAILY 12/01/20 12/01/20 Unknown History Gabapentin 300 mg PO BID 12/01/20 12/01/20 Unknown History Levalbuterol HCl [Xopenex] 1 ampul TID 12/01/20 12/01/20 Unknown History Losartan-Hctz 100-25 mg Tab 1 tab PO DAILY 12/01/20 12/01/20 Unknown History Mirabegron [Myrbetriq] 50 mg PO QDAY 12/01/20 12/01/20 Unknown History Multivitamin Tab [Multiple Vitamin 1 tab PO DAILY 12/01/20 12/01/20 Unknown History TAB (Theragran)] amLODIPine [Norvasc] 10 mg PO DAILY 12/01/20 12/01/20 Unknown History donepeziL [Aricept] 5 mg PO HS 12/01/20 12/01/20 Unknown History hydrOXYzine HCL [Atarax] 1 tab PO Q8H PRN 12/01/20 12/01/20 Unknown History lamoTRIgine [LaMICtal] 200 mg PO HS 12/01/20 12/01/20 Unknown History oxyCODONE /ACETAMINOPHEN [Percocet 1 tab PO Q6HR PRN 12/01/20 12/01/20 Unknown History 5/325] Active Meds: Active Medications Acetaminophen (Acetaminophen 325 Mg Tab) 650 mg PO Q6H PRN PRN Reason: Pain, Mild (1-3) Last Admin: 12/03/20 21:31 Dose: 650 mg Documented by: Albuterol (Albuterol 2.5 Mg/3 Ml Nebu) 2.5 mg IH Q6HRT [facility] Last Admin: 12/06/20 14:55 Dose: 2.5 mg Documented by: Amlodipine Besylate (Amlodipine 10 Mg Tab) 10 mg PO DAILY [facility] Last Admin: 12/06/20 09:20 Dose: 10 mg Documented by: Arformoterol Tartrate (Arformoterol 15 Mcg/2 Ml Nebu) 15 mcg IH Q12HRT [facility] Last Admin: 12/06/20 09:43 Dose: 15 mcg Documented by: Budesonide (Budesonide 0.5 Mg/2 Ml Nebu) 1 mg IH Q12HRT [facility] Last Admin: 12/06/20 09:40 Dose: Not Given Documented by: Donepezil HCl (Donepezil 5 Mg Tab) 5 mg PO [facility] Last Admin: 12/06/20 21:31 Dose: 5 mg Documented by: Gabapentin (Gabapentin 300 Mg Cap) 300 mg PO BID [facility] Last Admin: 12/06/20 21:33 Dose: 300 mg Documented by: Haloperidol Lactate (Haloperidol Lactate 5 Mg/1 Ml Inj) 5 mg IM Q6H PRN PRN Reason: Agitation Last Admin: 12/06/20 01:49 Dose: 5 mg Documented by: Lamotrigine (Lamotrigine 100 Mg Tab) 200 mg PO [facility] Last Admin: 12/06/20 21:32 Dose: 200 mg Documented by: Lorazepam (Lorazepam 2 Mg/Ml Vial) 2 mg IM Q6H PRN PRN Reason: Agitation Last Admin: 12/06/20 01:49 Dose: 2 mg Documented by: Losartan Potassium (Losartan 50 Mg Tab) 100 mg PO QDAY [facility] Last Admin: 12/06/20 09:20 Dose: 100 mg Documented by: Melatonin (Melatonin 5 Mg Tab) 5 mg PO QHS PRN PRN Reason: Sleep Last Admin: 12/05/20 21:13 Dose: 5 mg Documented by: Mirtazapine (Mirtazapine 15 Mg Tab) 15 mg PO QHS [facility] Last Admin: 12/06/20 21:32 Dose: 15 mg Documented by: Multivitamins (Multivitamins ,Therapeutic Tab) 1 each PO DAILY [facility] Last Admin: 12/06/20 09:19 Dose: 1 each Documented by: Ondansetron HCl (Ondansetron 4 Mg Odt Tab) 4 mg PO Q8H PRN PRN Reason: Nausea And Vomiting Last Admin: 12/05/20 07:36 Dose: 4 mg Documented by: Oxycodone/Acetaminophen (Oxycodone /Acetaminophen 5-325mg Tab) 1 tab PO Q6HR PRN PRN Reason: PAIN Last Admin: 12/05/20 21:11 Dose: 1 tab Documented by: Trimethoprim/Sulfamethoxazole (Sulfamethoxazole/Trimethoprim 800/160mg Ds Tab) 1 each PO Q12HR [facility]; Protocol Stop: 12/07/20 13:59 Last Admin: 12/06/20 21:31 Dose: 1 each Documented by: Valproic Acid (Valproic Acid 250 Mg Cap) 500 mg PO BID [facility] Last Admin: 12/06/20 21:32 Dose: 500 mg Documented by: Venlafaxine HCl (Venlafaxine Xr 75 Mg Cap) 75 mg PO QDAY [facility] Last Admin: 12/06/20 09:19 Dose: 75 mg Documented by: Results - Results Labs/Vitals: Laboratory Last Values WBC 6.4 K/mm3 (4.5-11.0) 12/02/20 23:25 RBC 4.09 M/mm3 (3.65-5.03) 12/02/20 23:25 Hgb 11.6 gm/dl (10.1-14.3) 12/02/20 23:25 Hct 35.5 % (30.3-42.9) 12/02/20 23:25 MCV 87 fl (79-97) 12/02/20 23:25 MCH 28 pg (28-32) 12/02/20 23:25 MCHC 33 % (30-34) 12/02/20 23:25 RDW 15.7 % (13.2-15.2) H 12/02/20 23:25 Plt Count 296 K/mm3 (140-440) 12/02/20 23:25 Lymph % (Auto) 22.4 % (13.4-35.0) 12/02/20 23:25 [place] % (Auto) 11.0 % (0.0-7.3) H 12/02/20 23:25 Eos % (Auto) 1.3 % (0.0-4.3) 12/02/20 23:25 Baso % (Auto) 0.3 % (0.0-1.8) 12/02/20 23:25 Lymph # (Auto) 1.4 K/mm3 (1.2-5.4) 12/02/20 23:25 [place] # (Auto) 0.7 K/mm3 (0.0-0.8) 12/02/20 23:25 Eos # (Auto) 0.1 K/mm3 (0.0-0.4) 12/02/20 23:25 Baso # (Auto) 0.0 K/mm3 (0.0-0.1) 12/02/20 23:25 Seg Neutrophils % 65.0 % (40.0-70.0) 12/02/20 23:25 Seg Neutrophils # 4.1 K/mm3 (1.8-7.7) 12/02/20 23:25 Sodium 135 mmol/L (137-145) L 12/02/20 23:25 Potassium 3.9 mmol/L (3.6-5.0) 12/02/20 23:25 Chloride 97.3 mmol/L (98-107) L 12/02/20 23:25 Carbon Dioxide 25 mmol/L (22-30) 12/02/20 23:25 Anion Gap 17 mmol/L 12/02/20 23:25 BUN 13 mg/dL (7-17) 12/02/20 23:25 Creatinine 0.8 mg/dL (0.6-1.2) 12/02/20 23:25 Estimated GFR > 60 ml/min 12/02/20 23:25 BUN/Creatinine Ratio 16 % 12/02/20 23:25 Glucose 105 mg/dL (65-100) H 12/02/20 23:25 POC Glucose 72 mg/dL (70-105) 12/07/20 07:30 Hemoglobin A1c 6.1 % (4-6) H 12/02/20 23:25 Calcium 9.8 mg/dL (8.4-10.2) 12/02/20 23:25 Total Bilirubin 0.20 mg/dL (0.1-1.2) 12/02/20 23:25 AST 19 units/L (5-40) 12/02/20 23:25 ALT 11 units/L (7-56) 12/02/20 23:25 Alkaline Phosphatase 76 units/L (35-129) 12/02/20 23:25 Total Protein 7.3 g/dL (6.3-8.2) 12/02/20 23:25 Albumin 3.9 g/dL (3.9-5) 12/02/20 23:25 Albumin/Globulin Ratio 1.1 % 12/02/20 23:25 Triglycerides 88 mg/dL (2-149) 12/02/20 23:25 Cholesterol 156 mg/dL (50-199) 12/02/20 23:25 LDL Cholesterol Direct 100 mg/dL (50-130) 12/02/20 23:25 HDL Cholesterol 51 mg/dL (40-59) 12/02/20 23:25 Cholesterol/HDL Ratio 3.05 % 12/02/20 23:25 TSH 1.460 mlU/mL (0.270-4.200) 12/02/20 23:25 Last Vital Signs Temp 98.3 F 12/07/20 09:01 Pulse 75 12/07/20 09:01 Resp 18 12/07/20 09:01 BP 147/66 12/07/20 09:01 Pulse Ox 94 12/07/20 09:01
[2020-12-07] MEDS: amLODIPine 10 MG TAB PO SCH (10:46)
[2020-12-07] MEDS: SULFAMETHOXAZOLE/TRIMETHOPRIM 800/160MG DS TAB PO SCH (10:46)
[2020-12-07] MEDS: MULTIVITAMINS ,THERAPEUTIC TAB PO SCH (10:46)
[2020-12-07] MEDS: GABAPENTIN 300 MG CAP PO SCH ×2 (10:46→21:17)
[2020-12-07] MEDS: LOSARTAN 50 MG TAB PO SCH (10:47)
[2020-12-07] MEDS: VENLAFAXINE XR 75 MG CAP PO SCH (10:47)
[2020-12-07] MEDS: lamoTRIgine 100 MG TAB PO SCH (21:17)
[2020-12-07] MEDS: DONEPEZIL 5 MG TAB PO SCH (21:17)
[2020-12-07] MEDS: MIRTAZAPINE 15 MG TAB PO SCH (21:18)
[2020-12-07] MEDS: VALPROIC ACID 250 MG CAP PO SCH (21:24)
--- NOTE | 2020-12-08 08:53 | Progress Note ---
Subjective Date of service: 12/08/20 Principal diagnosis: MDD Subjective Comment: Per nursing staff: Nurse Mehreen says the patient is continuously drowsy and sleeping hard all night. The patient was seen today. She is sitting on side of the bed eating. She appears down and withdrawn. The patient denies SI/HI. She says she "sees things that are not there." She would not elaborate on what those things were. She says she slept well. The patient's speech is not as nonsensical as previous days. She asked me what was the date. She knew she was in the hospital. The patient verbalizes being depressed. Reason to continue inpatient psychiatric hospitalization: The patient seems withdrawn and severely depressed REVIEW OF SYSTEMS Constitutional: Negative for weight loss ENT: Negative for stridor Respiratory: Negative for cough or hemoptysis All other systems reviewed and are negative MENTAL STATUS EXAMINATION General Appearance and Behavior: Age appropriate, good hygiene, wearing appropriate clothes,, good eye contact Cooperation: Participating/engaged, but Guarded Psychomotor Behavior: Psychomotor normal Mood:"I feel better but still depressed" Affect and affective range: congruent with mood. Thought Process: illogical Thought Content: hopelessness, helplessness Speech: Normal rate, volume and rhythm Intellectual Functioning: Average Suicidal Ideation: SI Homicidal Ideation: Denies HI Impulse Control: Impaired Insight and Judgment: Limited insight and judgment Memory: Normal Attention: Normal Orientation: Alert, oriented. Assessment and Plan (1) MDD (major depressive disorder) Current Visit: Yes Status: Acute F32.9 Treatment Plan Patient admitted for inpatient psychiatric evaluation, medication adjustment and close monitoring The patient's behavior, mood, sleep and appetite will be closely monitored. Patient enrolled in individual and group therapeutic sessions and encouraged to attend. Patient provided with a safe and structured environment. Patient's physical health needs will be addressed by the Hospitalist. Hospitalist Consulted Labs including CBC, CMP, Lipid profile and Hemoglobin A1C levels ordered for baseline reference Valproic level 11/11 Social Assessment will be completed and the [employer] will work with patient and family to ensure a suitable and safe disposition Medication adjustment will be made as clinically indicated Changed depakote intervals to prevent daytime drowsiness, 250mg 0800, 1400 and 500mg qhs Usual Wellness Yarsani/Preservation: - Start Trazodone 50 mg po QHS & 50 mg po QHS PRN between 10 PM & 2 AM for insomnia - Start Melatonin 5 mg po QHS to promote circadian rhythm - Start [place]-3 for brain health, reduce impulsivity, and as adjunctive treatment for mood disorder, continue upon discharge given overall benefits. - Start B1 prophylaxis with 200 mg po for 5 days The patient agreed on the treatment plan, understood the risk, benefit, alternative treatment, potential consequence of no treatment, and gave informed consent. Estimated days: 4 Post hospital care: primary care provider, psychiatric provider Medications and Allergies Allergies Allergy/AdvReac Type Severity Reaction Status Date / Time codeine Allergy Unknown Verified 12/01/20 22:03 morphine Allergy Unknown Verified 12/01/20 22:06 NSAIDS (Non-Steroidal Allergy Unknown Verified 12/01/20 22:06 Anti-Inflamma Home Medications Medication Instructions Recorded Confirmed Last Taken Type ARIPiprazole [Abilify] 20 mg PO HS 12/01/20 12/01/20 Unknown History Albuterol Sulfate [Proventil Hfa] 90 mcg IH Q6H 12/01/20 12/01/20 Unknown History Benztropine [Cogentin] 2 mg PO BID 12/01/20 12/01/20 Unknown History Budesonide-Formoterol 160-4.5 2 puff INHALATION BID 12/01/20 12/01/20 Unknown H istory Citalopram [Celexa] 20 mg PO HS 12/01/20 12/01/20 Unknown History Fluticasone/Umeclidin/Vilanter 1 puff INHALATION DAILY 12/01/20 12/01/20 Unknown History Gabapentin 300 mg PO BID 12/01/20 12/01/20 Unknown History Levalbuterol HCl [Xopenex] 1 ampul TID 12/01/20 12/01/20 Unknown History Losartan-Hctz 100-25 mg Tab 1 tab PO DAILY 12/01/20 12/01/20 Unknown History Mirabegron [Myrbetriq] 50 mg PO QDAY 12/01/20 12/01/20 Unknown History Multivitamin Tab [Multiple Vitamin 1 tab PO DAILY 12/01/20 12/01/20 Unknown History TAB (Theragran)] amLODIPine [Norvasc] 10 mg PO DAILY 12/01/20 12/01/20 Unknown History donepeziL [Aricept] 5 mg PO HS 12/01/20 12/01/20 Unknown History hydrOXYzine HCL [Atarax] 1 tab PO Q8H PRN 12/01/20 12/01/20 Unknown History lamoTRIgine [LaMICtal] 200 mg PO HS 12/01/20 12/01/20 Unknown History oxyCODONE /ACETAMINOPHEN [Percocet 1 tab PO Q6HR PRN 12/01/20 12/01/20 Unknown History 5/325] Active Meds: Active Medications Acetaminophen (Acetaminophen 325 Mg Tab) 650 mg PO Q6H PRN PRN Reason: Pain, Mild (1-3) Last Admin: 12/03/20 21:31 Dose: 650 mg Documented by: Albuterol (Albuterol 2.5 Mg/3 Ml Nebu) 2.5 mg IH Q6HRT [facility] Last Admin: 12/06/20 14:55 Dose: 2.5 mg Documented by: Amlodipine Besylate (Amlodipine 10 Mg Tab) 10 mg PO DAILY [facility] Last Admin: 12/07/20 10:46 Dose: 10 mg Documented by: Arformoterol Tartrate (Arformoterol 15 Mcg/2 Ml Nebu) 15 mcg IH Q12HRT [facility] Last Admin: 12/06/20 09:43 Dose: 15 mcg Documented by: Budesonide (Budesonide 0.5 Mg/2 Ml Nebu) 1 mg IH Q12HRT [facility] Last Admin: 12/06/20 09:40 Dose: Not Given Documented by: Donepezil HCl (Donepezil 5 Mg Tab) 5 mg PO [facility] Last Admin: 12/07/20 21:17 Dose: 5 mg Documented by: Gabapentin (Gabapentin 300 Mg Cap) 300 mg PO BID [facility] Last Admin: 12/07/20 21:17 Dose: 300 mg Documented by: Haloperidol Lactate (Haloperidol Lactate 5 Mg/1 Ml Inj) 5 mg IM Q6H PRN PRN Reason: Agitation Last Admin: 12/06/20 01:49 Dose: 5 mg Documented by: Lamotrigine (Lamotrigine 100 Mg Tab) 200 mg PO [facility] Last Admin: 12/07/20 21:17 Dose: 200 mg Documented by: Lorazepam (Lorazepam 2 Mg/Ml Vial) 2 mg IM Q6H PRN PRN Reason: Agitation Last Admin: 12/06/20 01:49 Dose: 2 mg Documented by: Losartan Potassium (Losartan 50 Mg Tab) 100 mg PO QDAY [facility] Last Admin: 12/07/20 10:47 Dose: 100 mg Documented by: Melatonin (Melatonin 5 Mg Tab) 5 mg PO QHS PRN PRN Reason: Sleep Last Admin: 12/05/20 21:13 Dose: 5 mg Documented by: Mirtazapine (Mirtazapine 15 Mg Tab) 15 mg PO QHS [facility] Last Admin: 12/07/20 21:18 Dose: 15 mg Documented by: Multivitamins (Multivitamins ,Therapeutic Tab) 1 each PO DAILY [facility] Last Admin: 12/07/20 10:46 Dose: 1 each Documented by: Ondansetron HCl (Ondansetron 4 Mg Odt Tab) 4 mg PO Q8H PRN PRN Reason: Nausea And Vomiting Last Admin: 12/05/20 07:36 Dose: 4 mg Documented by: Oxycodone/Acetaminophen (Oxycodone /Acetaminophen 5-325mg Tab) 1 tab PO Q6HR PRN PRN Reason: PAIN Last Admin: 12/05/20 21:11 Dose: 1 tab Documented by: Valproic Acid (Valproic Acid 250 Mg Cap) 500 mg PO QHS [facility] Valproic Acid (Valproic Acid 250 Mg Cap) 250 mg PO 0800,1400 [facility] Venlafaxine HCl (Venlafaxine Xr 75 Mg Cap) 75 mg PO QDAY [facility] Last Admin: 12/07/20 10:47 Dose: 75 mg Documented by: Results - Results Labs/Vitals: Laboratory Last Values WBC 6.4 K/mm3 (4.5-11.0) 12/02/20 23:25 RBC 4.09 M/mm3 (3.65-5.03) 12/02/20 23:25 Hgb 11.6 gm/dl (10.1-14.3) 12/02/20 23:25 Hct 35.5 % (30.3-42.9) 12/02/20 23:25 MCV 87 fl (79-97) 12/02/20 23:25 MCH 28 pg (28-32) 12/02/20 23:25 MCHC 33 % (30-34) 12/02/20 23:25 RDW 15.7 % (13.2-15.2) H 12/02/20 23:25 Plt Count 296 K/mm3 (140-440) 12/02/20 23:25 Lymph % (Auto) 22.4 % (13.4-35.0) 12/02/20 23:25 [place] % (Auto) 11.0 % (0.0-7.3) H 12/02/20 23:25 Eos % (Auto) 1.3 % (0.0-4.3) 12/02/20 23:25 Baso % (Auto) 0.3 % (0.0-1.8) 12/02/20 23:25 Lymph # (Auto) 1.4 K/mm3 (1.2-5.4) 12/02/20 23:25 [place] # (Auto) 0.7 K/mm3 (0.0-0.8) 12/02/20 23:25 Eos # (Auto) 0.1 K/mm3 (0.0-0.4) 12/02/20 23:25 Baso # (Auto) 0.0 K/mm3 (0.0-0.1) 12/02/20 23:25 Seg Neutrophils % 65.0 % (40.0-70.0) 12/02/20 23:25 Seg Neutrophils # 4.1 K/mm3 (1.8-7.7) 12/02/20 23:25 Sodium 135 mmol/L (137-145) L 12/02/20 23:25 Potassium 3.9 mmol/L (3.6-5.0) 12/02/20 23:25 Chloride 97.3 mmol/L (98-107) L 12/02/20 23:25 Carbon Dioxide 25 mmol/L (22-30) 12/02/20 23:25 Anion Gap 17 mmol/L 12/02/20 23:25 BUN 13 mg/dL (7-17) 12/02/20 23:25 Creatinine 0.8 mg/dL (0.6-1.2) 12/02/20 23:25 Estimated GFR > 60 ml/min 12/02/20 23:25 BUN/Creatinine Ratio 16 % 12/02/20 23:25 Glucose 105 mg/dL (65-100) H 12/02/20 23:25 POC Glucose 121 mg/dL (70-105) H 12/07/20 18:15 Hemoglobin A1c 6.1 % (4-6) H 12/02/20 23:25 Calcium 9.8 mg/dL (8.4-10.2) 12/02/20 23:25 Total Bilirubin 0.20 mg/dL (0.1-1.2) 12/02/20 23:25 AST 19 units/L (5-40) 12/02/20 23:25 ALT 11 units/L (7-56) 12/02/20 23:25 Alkaline Phosphatase 76 units/L (35-129) 12/02/20 23:25 Total Protein 7.3 g/dL (6.3-8.2) 12/02/20 23:25 Albumin 3.9 g/dL (3.9-5) 12/02/20 23:25 Albumin/Globulin Ratio 1.1 % 12/02/20 23:25 Triglycerides 88 mg/dL (2-149) 12/02/20 23:25 Cholesterol 156 mg/dL (50-199) 12/02/20 23:25 LDL Cholesterol Direct 100 mg/dL (50-130) 12/02/20 23:25 HDL Cholesterol 51 mg/dL (40-59) 12/02/20 23:25 Cholesterol/HDL Ratio 3.05 % 12/02/20 23:25 TSH 1.460 mlU/mL (0.270-4.200) 12/02/20 23:25 Last Vital Signs Temp 97.8 F 12/07/20 22:00 Pulse 68 12/07/20 22:00 Resp 14 12/07/20 22:00 BP 112/55 12/07/20 22:00 Pulse Ox 94 12/07/20 09:01
[2020-12-08] MEDS: LOSARTAN 50 MG TAB PO SCH (10:10)
[2020-12-08] MEDS: MULTIVITAMINS ,THERAPEUTIC TAB PO SCH (10:10)
[2020-12-08] MEDS: GABAPENTIN 300 MG CAP PO SCH ×2 (10:10→21:05)
[2020-12-08] MEDS: VENLAFAXINE XR 75 MG CAP PO SCH (10:11)
[2020-12-08] MEDS: amLODIPine 10 MG TAB PO SCH (10:11)
[2020-12-08] MEDS: VALPROIC ACID 250 MG CAP PO SCH ×2 (14:41→21:05)
[2020-12-08] MEDS: oxyCODONE /ACETAMINOPHEN 5-325MG TAB PO PRN (20:20)
[2020-12-08] MEDS: ALBUTEROL 2.5 MG/3 ML NEBU IH SCH ×4 (20:43→21:42)
[2020-12-08] MEDS: ARFORMOTEROL 15 MCG/2 ML NEBU IH SCH ×4 (20:44→21:43)
[2020-12-08] MEDS: BUDESONIDE 0.5 MG/2 ML NEBU IH SCH ×5 (20:44→21:43)
[2020-12-08] MEDS: lamoTRIgine 100 MG TAB PO SCH (21:05)
[2020-12-08] MEDS: DONEPEZIL 5 MG TAB PO SCH (21:05)
[2020-12-08] MEDS: MIRTAZAPINE 15 MG TAB PO SCH (21:06)
[2020-12-09] MEDS ORDERED: ALBUTEROL 2.5 MG/3 ML NEBU IH PRN (00:05)
[2020-12-09] MEDS: MULTIVITAMINS ,THERAPEUTIC TAB PO SCH (09:36)
[2020-12-09] MEDS: VENLAFAXINE XR 75 MG CAP PO SCH (09:36)
[2020-12-09] MEDS: VALPROIC ACID 250 MG CAP PO SCH ×3 (09:36→21:10)
[2020-12-09] MEDS: amLODIPine 10 MG TAB PO SCH (09:36)
[2020-12-09] MEDS: GABAPENTIN 300 MG CAP PO SCH ×2 (09:36→21:10)
[2020-12-09] MEDS: LOSARTAN 50 MG TAB PO SCH (09:37)
[2020-12-09] MEDS: BUDESONIDE 0.5 MG/2 ML NEBU IH SCH ×3 (10:03→20:42)
[2020-12-09] MEDS: ARFORMOTEROL 15 MCG/2 ML NEBU IH SCH ×3 (10:03→20:41)
[2020-12-09] MEDS: ALBUTEROL 2.5 MG/3 ML NEBU IH SCH ×2 (10:22→10:25)
--- NOTE | 2020-12-09 10:30 | Progress Note ---
Subjective Date of service: 12/09/20 Principal diagnosis: MDD Subjective Comment: Per nurse note: pt spent the evening in activity room sitting quietly to herself, withdrawn to self, does not initiate communication, but responds slowly to questions, pt is alert and orientedx3, calm and cooperative, mood is depressed, flat affect, consumed 100% of bedtime snack, denies suicidal thought, denies a/v/h. The patient was seen today. She is in the dayroom. She is pleasant. She looks better but still looks down. The patient admits to feeling better. She denies SI/HI or hallucinations. Reason to continue inpatient psychiatric hospitalization: The patient seems withdrawn and severely depressed REVIEW OF SYSTEMS Constitutional: Negative for weight loss ENT: Negative for stridor Respiratory: Negative for cough or hemoptysis All other systems reviewed and are negative MENTAL STATUS EXAMINATION General Appearance and Behavior: Age appropriate, good hygiene, wearing appropriate clothes,, good eye contact Cooperation: Participating/engaged, but Guarded Psychomotor Behavior: Psychomotor normal Mood: "I feel better" Affect and affective range: congruent with mood. Thought Process:logical Thought Content: none Speech: Normal rate, volume and rhythm Intellectual Functioning: Average Suicidal Ideation: Denies Homicidal Ideation: Denies HI Impulse Control: Impaired Insight and Judgment: Limited insight and judgment Memory: Normal Attention: Normal Orientation: Alert, oriented. Assessment and Plan (1) MDD (major depressive disorder) Current Visit: Yes Status: Acute F32.9 Treatment Plan Patient admitted for inpatient psychiatric evaluation, medication adjustment and close monitoring The patient's behavior, mood, sleep and appetite will be closely monitored. Patient enrolled in individual and group therapeutic sessions and encouraged to attend. Patient provided with a safe and structured environment. Patient's physical health needs will be addressed by the Hospitalist. Hospitalist Consulted Labs including CBC, CMP, Lipid profile and Hemoglobin A1C levels ordered for baseline reference Valproic level 70.9 Social Assessment will be completed and the [employer] will work with patient and family to ensure a suitable and safe disposition Medication adjustment will be made as clinically indicated Changed depakote intervals to prevent daytime drowsiness, 250mg 0800, 1400 and 500mg qhs yesterday No changes today Usual Wellness [facility]/Preservation: - Start Trazodone 50 mg po QHS & 50 mg po QHS PRN between 10 PM & 2 AM for insomnia - Start Melatonin 5 mg po QHS to promote circadian rhythm - Start [place]-3 for brain health, reduce impulsivity, and as adjunctive treatment for mood disorder, continue upon discharge given overall benefits. - Start B1 prophylaxis with 200 mg po for 5 days The patient agreed on the treatment plan, understood the risk, benefit, alternative treatment, potential consequence of no treatment, and gave informed consent. Estimated days: 4 Post hospital care: primary care provider, psychiatric provider Medications and Allergies Allergies Allergy/AdvReac Type Severity Reaction Status Date / Time codeine Allergy Unknown Verified 12/01/20 22:03 morphine Allergy Unknown Verified 12/01/20 22:06 NSAIDS (Non-Steroidal Allergy Unknown Verified 12/01/20 22:06 Anti-Inflamma Home Medications Medication Instructions Recorded Confirmed Last Taken Type ARIPiprazole [Abilify] 20 mg PO HS 12/01/20 12/01/20 Unknown History Albuterol Sulfate [Proventil Hfa] 90 mcg IH Q6H 12/01/20 12/01/20 Unknown History Benztropine [Cogentin] 2 mg PO BID 12/01/20 12/01/20 Unknown History Budesonide-Formoterol 160-4.5 2 puff INHALATION BID 12/01/20 12/01/20 Unknown History Citalopram [Celexa] 20 mg PO HS 12/01/20 12/01/20 Unknown History Fluticasone/Umeclidin/Vilanter 1 puff INHALATION DAILY 12/01/20 12/01/20 Unknown History Gabapentin 300 mg PO BID 12/01/20 12/01/20 Unknown History Levalbuterol HCl [Xopenex] 1 ampul TID 12/01/20 12/01/20 Unknown History Losartan-Hctz 100-25 mg Tab 1 tab PO DAILY 12/01/20 12/01/20 Unknown History Mirabegron [Myrbetriq] 50 mg PO QDAY 12/01/20 12/01/20 Unknown History Multivitamin Tab [Multiple Vitamin 1 tab PO DAILY 12/01/20 12/01/20 Unknown History TAB (Theragran)] amLODIPine [Norvasc] 10 mg PO DAILY 12/01/20 12/01/20 Unknown History donepeziL [Aricept] 5 mg PO HS 12/01/20 12/01/20 Unknown History hydrOXYzine HCL [Atarax] 1 tab PO Q8H PRN 12/01/20 12/01/20 Unknown History lamoTRIgine [LaMICtal] 200 mg PO HS 12/01/20 12/01/20 Unknown History oxyCODONE /ACETAMINOPHEN [Percocet 1 tab PO Q6HR PRN 12/01/20 12/01/20 Unknown History 5/325] Active Meds: Active Medications Acetaminophen (Acetaminophen 325 Mg Tab) 650 mg PO Q6H PRN PRN Reason: Pain, Mild (1-3) Last Admin: 12/03/20 21:31 Dose: 650 mg Documented by: Albuterol (Albuterol 2.5 Mg/3 Ml Nebu) 2.5 mg IH Q4HRT PRN PRN Reason: Shortness Of Breath Amlodipine Besylate (Amlodipine 10 Mg Tab) 10 mg PO DAILY [facility] Last Admin: 12/09/20 09:36 Dose: 10 mg Documented by: Arformoterol Tartrate (Arformoterol 15 Mcg/2 Ml Nebu) 15 mcg IH Q12HRT [facility] Last Admin: 12/09/20 10:24 Dose: Not Given Documented by: Budesonide (Budesonide 0.5 Mg/2 Ml Nebu) 1 mg IH Q12HRT [facility] Last Admin: 12/09/20 10:24 Dose: Not Given Documented by: Donepezil HCl (Donepezil 5 Mg Tab) [address] [facility] Last Admin: 12/08/20 21:05 Dose: 5 mg Documented by: Gabapentin (Gabapentin 300 Mg Cap) 300 mg PO BID [facility] Last Admin: 12/09/20 09:36 Dose: 300 mg Documented by: Haloperidol Lactate (Haloperidol Lactate 5 Mg/1 Ml Inj) 5 mg IM Q6H PRN PRN Reason: Agitation Last Admin: 12/06/20 01:49 Dose: 5 mg Documented by: Lamotrigine (Lamotrigine 100 Mg Tab) [address] [facility] Last Admin: 12/08/20 21:05 Dose: 200 mg Documented by: Lorazepam (Lorazepam 2 Mg/Ml Vial) 2 mg IM Q6H PRN PRN Reason: Agitation Last Admin: 12/06/20 01:49 Dose: 2 mg Documented by: Losartan Potassium (Losartan 50 Mg Tab) 100 mg PO QDAY [facility] Last Admin: 12/09/20 09:37 Dose: 100 mg Documented by: Melatonin (Melatonin 5 Mg Tab) 5 mg PO QHS PRN PRN Reason: Sleep Last Admin: 12/05/20 21:13 Dose: 5 mg Documented by: Mirtazapine (Mirtazapine 15 Mg Tab) 15 mg PO QHS [facility] Last Admin: 12/08/20 21:06 Dose: 15 mg Documented by: Multivitamins (Multivitamins ,Therapeutic Tab) 1 each PO DAILY [facility] Last Admin: 12/09/20 09:36 Dose: 1 each Documented by: Ondansetron HCl (Ondansetron 4 Mg Odt Tab) 4 mg PO Q8H PRN PRN Reason: Nausea And Vomiting Last Admin: 12/05/20 07:36 Dose: 4 mg Documented by: Oxycodone/Acetaminophen (Oxycodone /Acetaminophen 5-325mg Tab) 1 tab PO Q6HR PRN PRN Reason: PAIN Last Admin: 12/08/20 20:20 Dose: 1 tab Documented by: Valproic Acid (Valproic Acid 250 Mg Cap) 500 mg PO QHS [facility] Last Admin: 12/08/20 21:05 Dose: 500 mg Documented by: Valproic Acid (Valproic Acid 250 Mg Cap) 250 mg PO 0800,1400 [facility] Last Admin: 12/09/20 09:36 Dose: 250 mg Documented by: Venlafaxine HCl (Venlafaxine Xr 75 Mg Cap) 75 mg PO QDAY [facility] Last Admin: 12/09/20 09:36 Dose: 75 mg Documented by: Results - Results Labs/Vitals: Laboratory Last Values WBC 6.4 K/mm3 (4.5-11.0) 12/02/20 23:25 RBC 4.09 M/mm3 (3.65-5.03) 12/02/20 23:25 Hgb 11.6 gm/dl (10.1-14.3) 12/02/20 23:25 Hct 35.5 % (30.3-42.9) 12/02/20 23:25 MCV 87 fl (79-97) 12/02/20 23:25 MCH 28 pg (28-32) 12/02/20 23:25 MCHC 33 % (30-34) 12/02/20 23:25 RDW 15.7 % (13.2-15.2) H 12/02/20 23:25 Plt Count 296 K/mm3 (140-440) 12/02/20 23:25 Lymph % (Auto) 22.4 % (13.4-35.0) 12/02/20 23:25 [place] % (Auto) 11.0 % (0.0-7.3) H 12/02/20 23:25 Eos % (Auto) 1.3 % (0.0-4.3) 12/02/20 23:25 Baso % (Auto) 0.3 % (0.0-1.8) 12/02/20 23:25 Lymph # (Auto) 1.4 K/mm3 (1.2-5.4) 12/02/20 23:25 [place] # (Auto) 0.7 K/mm3 (0.0-0.8) 12/02/20 23:25 Eos # (Auto) 0.1 K/mm3 (0.0-0.4) 12/02/20 23:25 Baso # (Auto) 0.0 K/mm3 (0.0-0.1) 12/02/20 23:25 Seg Neutrophils % 65.0 % (40.0-70.0) 12/02/20 23:25 Seg Neutrophils # 4.1 K/mm3 (1.8-7.7) 12/02/20 23:25 Sodium 135 mmol/L (137-145) L 12/02/20 23:25 Potassium 3.9 mmol/L (3.6-5.0) 12/02/20 23:25 Chloride 97.3 mmol/L (98-107) L 12/02/20 23:25 Carbon Dioxide 25 mmol/L (22-30) 12/02/20 23:25 Anion Gap 17 mmol/L 12/02/20 23:25 BUN 13 mg/dL (7-17) 12/02/20 23:25 Creatinine 0.8 mg/dL (0.6-1.2) 12/02/20 23:25 Estimated GFR > 60 ml/min 12/02/20 23:25 BUN/Creatinine Ratio 16 % 12/02/20 23:25 Glucose 105 mg/dL (65-100) H 12/02/20 23:25 POC Glucose 80 mg/dL (70-105) 12/09/20 06:23 Hemoglobin A1c 6.1 % (4-6) H 12/02/20 23:25 Calcium 9.8 mg/dL (8.4-10.2) 12/02/20 23:25 Total Bilirubin 0.20 mg/dL (0.1-1.2) 12/02/20 23:25 AST 19 units/L (5-40) 12/02/20 23:25 ALT 11 units/L (7-56) 12/02/20 23:25 Alkaline Phosphatase 76 units/L (35-129) 12/02/20 23:25 Total Protein 7.3 g/dL (6.3-8.2) 12/02/20 23:25 Albumin 3.9 g/dL (3.9-5) 12/02/20 23:25 Albumin/Globulin Ratio 1.1 % 12/02/20 23:25 Triglycerides 88 mg/dL (2-149) 12/02/20 23:25 Cholesterol 156 mg/dL (50-199) 12/02/20 23:25 LDL Cholesterol Direct 100 mg/dL (50-130) 12/02/20 23:25 HDL Cholesterol 51 mg/dL (40-59) 12/02/20 23:25 Cholesterol/HDL Ratio 3.05 % 12/02/20 23:25 TSH 1.460 mlU/mL (0.270-4.200) 12/02/20 23:25 Valproic Acid 70.9 ug/mL (50-100) 12/09/20 05:42 Last Vital Signs Temp 98.3 F 12/09/20 09:01 Pulse 74 12/09/20 10:03 Resp 16 12/09/20 10:03 BP 134/60 12/09/20 09:37 Pulse Ox 98 12/09/20 10:02
[2020-12-09] MEDS: MIRTAZAPINE 15 MG TAB PO SCH (21:10)
[2020-12-09] MEDS: lamoTRIgine 100 MG TAB PO SCH (21:10)
[2020-12-09] MEDS: DONEPEZIL 5 MG TAB PO SCH (21:10)
[2020-12-10] MEDS: BUDESONIDE 0.5 MG/2 ML NEBU IH SCH ×3 (08:54→22:17)
[2020-12-10] MEDS: ARFORMOTEROL 15 MCG/2 ML NEBU IH SCH ×2 (08:55→22:17)
[2020-12-10] MEDS: VALPROIC ACID 250 MG CAP PO SCH ×3 (09:19→21:47)
[2020-12-10] MEDS: VENLAFAXINE XR 75 MG CAP PO SCH (09:20)
[2020-12-10] MEDS: GABAPENTIN 300 MG CAP PO SCH ×2 (09:20→21:47)
[2020-12-10] MEDS: MULTIVITAMINS ,THERAPEUTIC TAB PO SCH (09:20)
--- NOTE | 2020-12-10 09:23 | Progress Note ---
Subjective Date of service: 12/10/20 Principal diagnosis: MDD Subjective Comment: Per nurse note: Pt was received in the dayroom A&O x4 and sad. Pt states she does not feel well, but is unable to elaborate. Pt denies SI/HI and AVH. Pt is on 02 continuous @ 2L per NC, no respiratory distress noted. Close monitoring continues. The patient was seen today. She is in the dayroom. She says she is not doing too good. She says she thinks the nurses are trying to kill her. When asked why did she think that, she replies "I don't know I just do." The patient denies SI/HI or hallucinations of any kind. Reason to continue inpatient psychiatric hospitalization: The patient seems withdrawn and severely depressed REVIEW OF SYSTEMS Constitutional: Negative for weight loss ENT: Negative for stridor Respiratory: Negative for cough or hemoptysis All other systems reviewed and are negative MENTAL STATUS EXAMINATION General Appearance and Behavior: Age appropriate, good hygiene, wearing appropriate clothes,, good eye contact Cooperation: Participating/engaged, but Guarded Psychomotor Behavior: Psychomotor normal Mood: "not too good" Affect and affective range: congruent with mood. Thought Process:logical Thought Content: none Speech: Normal rate, volume and rhythm Intellectual Functioning: Average Suicidal Ideation: Denies Homicidal Ideation: Denies HI Impulse Control: Impaired Insight and Judgment: Limited insight and judgment Memory: Normal Attention: Normal Orientation: Alert, oriented. Assessment and Plan (1) MDD (major depressive disorder) Current Visit: Yes Status: Acute F32.9 Treatment Plan Patient admitted for inpatient psychiatric evaluation, medication adjustment and close monitoring The patient's behavior, mood, sleep and appetite will be closely monitored. Patient enrolled in individual and group therapeutic sessions and encouraged to attend. Patient provided with a safe and structured environment. Patient's physical health needs will be addressed by the Hospitalist. Hospitalist Consulted Labs including CBC, CMP, Lipid profile and Hemoglobin A1C levels ordered for baseline reference Valproic level 70.9 Social Assessment will be completed and the Bridge Maintainer will work with patient and family to ensure a suitable and safe disposition Medication adjustment will be made as clinically indicated No changes today Usual Wellness Buddhism/Preservation: - Start Trazodone 50 mg po QHS & 50 mg po QHS PRN between 10 PM & 2 AM for insomnia - Start Melatonin 5 mg po QHS to promote circadian rhythm - Start Dodge-3 for brain health, reduce impulsivity, and as adjunctive treatment for mood disorder, continue upon discharge given overall benefits. - Start B1 prophylaxis with 200 mg po for 5 days The patient agreed on the treatment plan, understood the risk, benefit, alternative treatment, potential consequence of no treatment, and gave informed consent. Estimated days: 4 Post hospital care: primary care provider, psychiatric provider Medications and Allergies Allergies Allergy/AdvReac Type Severity Reaction Status Date / Time codeine Allergy Unknown Verified 12/01/20 22:03 morphine Allergy Unknown Verified 12/01/20 22:06 NSAIDS (Non-Steroidal Allergy Unknown Verified 12/01/20 22:06 Anti-Inflamma Home Medications Medication Instructions Recorded Confirmed Last Taken Type ARIPiprazole [Abilify] 20 mg PO HS 12/01/20 12/01/20 Unknown History Albuterol Sulfate [Proventil Hfa] 90 mcg IH Q6H 12/01/20 12/01/20 Unknown History Benztropine [Cogentin] 2 mg PO BID 12/01/20 12/01/20 Unknown History Budesonide-Formoterol 160-4.5 2 puff INHALATION BID 12/01/20 12/01/20 Unknown History Citalopram [Celexa] 20 mg PO HS 12/01/20 12/01/20 Unknown History Fluticasone/Umeclidin/Vilanter 1 puff INHALATION DAILY 12/01/20 12/01/20 Unknown History Gabapentin 300 mg PO BID 12/01/20 12/01/20 Unknown History Levalbuterol HCl [Xopenex] 1 ampul TID 12/01/20 12/01/20 Unknown History Losartan-Hctz 100-25 mg Tab 1 tab PO DAILY 12/01/20 12/01/20 Unknown History Mirabegron [Myrbetriq] 50 mg PO QDAY 12/01/20 12/01/20 Unknown History Multivitamin Tab [Multiple Vitamin 1 tab PO DAILY 12/01/20 12/01/20 Unknown History TAB (Theragran)] amLODIPine [Norvasc] 10 mg PO DAILY 12/01/20 12/01/20 Unknown History donepeziL [Aricept] 5 mg PO HS 12/01/20 12/01/20 Unknown History hydrOXYzine HCL [Atarax] 1 tab PO Q8H PRN 12/01/20 12/01/20 Unknown History lamoTRIgine [LaMICtal] 200 mg PO HS 12/01/20 12/01/20 Unknown History oxyCODONE /ACETAMINOPHEN [Percocet 1 tab PO Q6HR PRN 12/01/20 12/01/20 Unknown History 5/325] Active Meds: Active Medications Acetaminophen (Acetaminophen 325 Mg Tab) 650 mg PO Q6H PRN PRN Reason: Pain, Mild (1-3) Last Admin: 12/03/20 21:31 Dose: 650 mg Documented by: Albuterol (Albuterol 2.5 Mg/3 Ml Nebu) 2.5 mg IH Q4HRT PRN PRN Reason: Shortness Of Breath Amlodipine Besylate (Amlodipine 10 Mg Tab) 10 mg PO DAILY [facility] Last Admin: 12/09/20 09:36 Dose: 10 mg Documented by: Arformoterol Tartrate (Arformoterol 15 Mcg/2 Ml Nebu) 15 mcg IH Q12HRT [facility] Last Admin: 12/10/20 08:55 Dose: 15 mcg Documented by: Budesonide (Budesonide 0.5 Mg/2 Ml Nebu) 1 mg IH Q12HRT [facility] Last Admin: 12/10/20 08:54 Dose: 1 mg Documented by: Donepezil HCl (Donepezil 5 Mg Tab) 5 mg PO [facility] Last Admin: 12/09/20 21:10 Dose: 5 mg Documented by: Gabapentin (Gabapentin 300 Mg Cap) 300 mg PO BID [facility] Last Admin: 12/09/20 21:10 Dose: 300 mg Documented by: Haloperidol Lactate (Haloperidol Lactate 5 Mg/1 Ml Inj) 5 mg IM Q6H PRN PRN Reason: Agitation Last Admin: 12/06/20 01:49 Dose: 5 mg Documented by: Lamotrigine (Lamotrigine 100 Mg Tab) 200 mg PO [facility] Last Admin: 12/09/20 21:10 Dose: 200 mg Documented by: Lorazepam (Lorazepam 2 Mg/Ml Vial) 2 mg IM Q6H PRN PRN Reason: Agitation Last Admin: 12/06/20 01:49 Dose: 2 mg Documented by: Losartan Potassium (Losartan 50 Mg Tab) 100 mg PO QDAY [facility] Last Admin: 12/09/20 09:37 Dose: 100 mg Documented by: Melatonin (Melatonin 5 Mg Tab) 5 mg PO QHS PRN PRN Reason: Sleep Last Admin: 12/05/20 21:13 Dose: 5 mg Documented by: Mirtazapine (Mirtazapine 15 Mg Tab) 15 mg PO QHS [facility] Last Admin: 12/09/20 21:10 Dose: 15 mg Documented by: Multivitamins (Multivitamins ,Therapeutic Tab) 1 each PO DAILY [facility] Last Admin: 12/09/20 09:36 Dose: 1 each Documented by: Ondansetron HCl (Ondansetron 4 Mg Odt Tab) 4 mg PO Q8H PRN PRN Reason: Nausea And Vomiting Last Admin: 12/05/20 07:36 Dose: 4 mg Documented by: Oxycodone/Acetaminophen (Oxycodone /Acetaminophen 5-325mg Tab) 1 tab PO Q6HR PRN PRN Reason: PAIN Last Admin: 12/08/20 20:20 Dose: 1 tab Documented by: Valproic Acid (Valproic Acid 250 Mg Cap) 500 mg PO QHS [facility] Last Admin: 12/09/20 21:10 Dose: 500 mg Documented by: Valproic Acid (Valproic Acid 250 Mg Cap) 250 mg PO 0800,1400 [facility] Last Admin: 12/09/20 14:05 Dose: 250 mg Documented by: Venlafaxine HCl (Venlafaxine Xr 75 Mg Cap) 75 mg PO QDAY [facility] Last Admin: 12/09/20 09:36 Dose: 75 mg Documented by: Results - Results Labs/Vitals: Laboratory Last Values WBC 6.4 K/mm3 (4.5-11.0) 12/02/20 23:25 RBC 4.09 M/mm3 (3.65-5.03) 12/02/20 23:25 Hgb 11.6 gm/dl (10.1-14.3) 12/02/20 23:25 Hct 35.5 % (30.3-42.9) 12/02/20 23:25 MCV 87 fl (79-97) 12/02/20 23:25 MCH 28 pg (28-32) 12/02/20 23:25 MCHC 33 % (30-34) 12/02/20 23:25 RDW 15.7 % (13.2-15.2) H 12/02/20 23:25 Plt Count 296 K/mm3 (140-440) 12/02/20 23:25 Lymph % (Auto) 22.4 % (13.4-35.0) 12/02/20 23:25 [place] % (Auto) 11.0 % (0.0-7.3) H 12/02/20 23:25 Eos % (Auto) 1.3 % (0.0-4.3) 12/02/20 23:25 Baso % (Auto) 0.3 % (0.0-1.8) 12/02/20 23:25 Lymph # (Auto) 1.4 K/mm3 (1.2-5.4) 12/02/20 23:25 [place] # (Auto) 0.7 K/mm3 (0.0-0.8) 12/02/20 23:25 Eos # (Auto) 0.1 K/mm3 (0.0-0.4) 12/02/20 23:25 Baso # (Auto) 0.0 K/mm3 (0.0-0.1) 12/02/20 23:25 Seg Neutrophils % 65.0 % (40.0-70.0) 12/02/20 23:25 Seg Neutrophils # 4.1 K/mm3 (1.8-7.7) 12/02/20 23:25 Sodium 135 mmol/L (137-145) L 12/02/20 23:25 Potassium 3.9 mmol/L (3.6-5.0) 12/02/20 23:25 Chloride 97.3 mmol/L (98-107) L 12/02/20 23:25 Carbon Dioxide 25 mmol/L (22-30) 12/02/20 23:25 Anion Gap 17 mmol/L 12/02/20 23:25 BUN 13 mg/dL (7-17) 12/02/20 23:25 Creatinine 0.8 mg/dL (0.6-1.2) 12/02/20 23:25 Estimated GFR > 60 ml/min 12/02/20 23:25 BUN/Creatinine Ratio 16 % 12/02/20 23:25 Glucose 105 mg/dL (65-100) H 12/02/20 23:25 POC Glucose 64 mg/dL (70-105) L 12/10/20 06:35 Hemoglobin A1c 6.1 % (4-6) H 12/02/20 23:25 Calcium 9.8 mg/dL (8.4-10.2) 12/02/20 23:25 Total Bilirubin 0.20 mg/dL (0.1-1.2) 12/02/20 23:25 AST 19 units/L (5-40) 12/02/20 23:25 ALT 11 units/L (7-56) 12/02/20 23:25 Alkaline Phosphatase 76 units/L (35-129) 12/02/20 23:25 Total Protein 7.3 g/dL (6.3-8.2) 12/02/20 23:25 Albumin 3.9 g/dL (3.9-5) 12/02/20 23:25 Albumin/Globulin Ratio 1.1 % 12/02/20 23:25 Triglycerides 88 mg/dL (2-149) 12/02/20 23:25 Cholesterol 156 mg/dL (50-199) 12/02/20 23:25 LDL Cholesterol Direct 100 mg/dL (50-130) 12/02/20 23:25 HDL Cholesterol 51 mg/dL (40-59) 12/02/20 23:25 Cholesterol/HDL Ratio 3.05 % 12/02/20 23:25 TSH 1.460 mlU/mL (0.270-4.200) 12/02/20 23:25 Valproic Acid 70.9 ug/mL (50-100) 12/09/20 05:42 Last Vital Signs Temp 98.5 F 12/09/20 19:42 Pulse 79 12/10/20 09:16 Resp 18 12/10/20 09:16 BP 119/65 12/09/20 19:42 Pulse Ox 100 12/10/20 09:18
[2020-12-10] MEDS: amLODIPine 10 MG TAB PO SCH (09:25)
[2020-12-10] MEDS: LOSARTAN 50 MG TAB PO SCH (09:25)
--- NOTE | 2020-12-10 20:45 | Progress Note ---
Assessment and Plan - Patient Problems (1) Vascular dementia with behavioral disturbance Current Visit: Yes Status: Acute Plan to address problem: Verbal prompting, verbal redirection, benzodiazepine therapy as clinically indicated. (2) Cerebral atherosclerosis Current Visit: Yes Status: Acute Plan to address problem: Antiplatelet therapy as clinically indicated, supportive care, risk factor reduction. (3) Hypertension Current Visit: Yes Status: Acute Qualifiers: Hypertension type: essential hypertension Qualified Code(s): I10 - Essential (primary) hypertension Plan to address problem: Monitor blood pressure every shift, continue medical management (4) Diabetes Current Visit: Yes Status: Acute Plan to address problem: Insulin protocol, Accu-Chek, consistent carbohydrate diet, hypoglycemia betito col. History Interval history: 75 YO Female with Vascular Dementia with Behavioral Disturbance, Cerebral Atherosclerosis, HTN, DM, GERD, WILFREDO, admitted to [facility] for Psychiatric Stabilization. Patient seen and evaluated in the recreation room. Patient resting comfortably and denies complaints. No reported nursing events. Patient cooperative with exam and interview. Hospitalist Physical - Constitutional Vitals: Temp Pulse Resp BP Pulse Ox 98.6 F 69 18 114/55 96 12/10/20 09:23 12/10/20 09:25 12/10/20 09:23 12/10/20 09:25 12/10/20 09:23 General appearance: Present: no acute distress, well-nourished - EENT Eyes: Present: PERRL, EOM intact - Neck Neck: Present: supple - Respiratory Respiratory: bilateral: CTA - Cardiovascular Rhythm: regular Heart Sounds: Present: S1 & S2 - Extremities Extremities: no ischemia Peripheral Pulses: within normal limits - Abdominal General gastrointestinal: soft, non-tender, non-distended - Integumentary Integumentary: Present: clear, dry - Psychiatric Psychiatric: cooperative - Neurologic Neurologic: CNII-XII intact Results - Labs CBC & Chem 7: 12/02/20 23:25 12/02/20 23:25 Labs: Laboratory Last Values WBC 6.4 K/mm3 (4.5-11.0) 12/02/20 23:25 RBC 4.09 M/mm3 (3.65-5.03) 12/02/20 23:25 Hgb 11.6 gm/dl (10.1-14.3) 12/02/20 23:25 Hct 35.5 % (30.3-42.9) 12/02/20 23:25 MCV 87 fl (79-97) 12/02/20 23:25 MCH 28 pg (28-32) 12/02/20 23: MCHC 33 % (30-34) 12/02/20 23:25 RDW 15.7 % (13.2-15.2) H 12/02/20 23:25 Plt Count 296 K/mm3 (140-440) 12/02/20 23: Lymph % (Auto) 22.4 % (13.4-35.0) 12/02/20 23: [place] % (Auto) 11.0 % (0.0-7.3) H 12/02/20: Eos % (Auto) 1.3 % (0.0-4.3) 12/02/20: Baso % (Auto) 0.3 % (0.0-1.8) 12/02/20: Lymph # (Auto) 1.4 K/mm3 (1.2-5.4) 12/02/20 23:25 [place] # (Auto) 0.7 K/mm3 (0.0-0.8) 12/02/20 23: Eos # (Auto) 0.1 K/mm3 (0.0-0.4) 12/02/20: Baso # (Auto) 0.0 K/mm3 (0.0-0.1) 12/02/20 23:25 Seg Neutrophils % 65.0 % (40.0-70.0) 12/02/20: Seg Neutrophils # 4.1 K/mm3 (1.8-7.7) 12/02/20 23:25 Sodium 135 mmol/L (137-145) L 12/02/20 23:25 Potassium 3.9 mmol/L (3.6-5.0) 12/02/20 23:25 Chloride 97.3 mmol/L (98-107) L 12/02/20 23:25 Carbon Dioxide 25 mmol/L (22-30) 12/02/20 23:25 Anion Gap 17 mmol/L 12/02/20 23:25 BUN 13 mg/dL (7-17) 12/02/20 23:25 Creatinine 0.8 mg/dL (0.6-1.2) 12/02/20 23:25 Estimated GFR > 60 ml/min 12/02/20 23:25 BUN/Creatinine Ratio 16 % 12/02/20 23:25 Glucose 105 mg/dL (65-100) H 12/02/20 23:25 POC Glucose 107 mg/dL (70-105) H 12/10/20 09:51 Hemoglobin A1c 6.1 % (4-6) H 12/02/20 23:25 Calcium 9.8 mg/dL (8.4-10.2) 12/02/20 23:25 Total Bilirubin 0.20 mg/dL (0.1-1.2) 12/02/20 23:25 AST 19 units/L (5-40) 12/02/20 23:25 ALT 11 units/L (7-56) 12/02/20 23:25 Alkaline Phosphatase 76 units/L (35-129) 12/02/20 23:25 Total Protein 7.3 g/dL (6.3-8.2) 12/02/20 23:25 Albumin 3.9 g/dL (3.9-5) 12/02/20 23:25 Albumin/Globulin Ratio 1.1 % 12/02/20 23:25 Triglycerides 88 mg/dL (2-149) 12/02/20 23:25 Cholesterol 156 mg/dL (50-199) 12/02/20 23:25 LDL Cholesterol Direct 100 mg/dL (50-130) 12/02/20 23:25 HDL Cholesterol 51 mg/dL (40-59) 12/02/20 23:25 Cholesterol/HDL Ratio 3.05 % 12/02/20 23:25 TSH 1.460 mlU/mL (0.270-4.200) 12/02/20 23:25 Valproic Acid 70.9 ug/mL (50-100) 12/09/20 05:42 Hester/IV: Voiding Method Toilet Active Medications - Current Medications Current Medications: Generic Name Dose Route Start Last Admin Trade Name Freq PRN Reason Stop Dose Admin Acetaminophen 650 mg 12/01/20 22:30 12/03/20 21:31 Acetaminophen 325 Mg Tab PO 650 mg Q6H PRN Administration Pain, Mild (1-3) Albuterol 2.5 mg 12/09/20 00:05 Albuterol 2.5 Mg/3 Ml Nebu IH Q4HRT PRN Shortness Of Breath Amlodipine Besylate 10 mg 12/03/20 10:00 12/10/20 09:25 Amlodipine 10 Mg Tab PO 10 mg DAILY BHAVESH Administration Arformoterol Tartrate 15 mcg 12/02/20 20:00 12/10/20 08:55 Arformoterol 15 Mcg/2 Ml Nebu IH 15 mcg Q12HRT BHAVESH Administration Budesonide 0.5 mg 12/10/20 14:00 12/10/20 16:09 Budesonide 0.5 Mg/2 Ml Nebu IH Not Given Q12HRT BHAVESH Donepezil HCl 5 mg 12/02/20 22:00 12/09/20 21:10 Donepezil 5 Mg Tab PO 5 mg HS BHAVESH Administration Gabapentin 300 mg 12/02/20 22:00 12/10/20 09:20 Gabapentin 300 Mg Cap PO 300 mg BID BHAVESH Administration Haloperidol Lactate 5 mg 12/06/20 01:30 12/06/20 01:49 Haloperidol Lactate 5 Mg/1 Ml Inj IM 5 mg Q6H PRN Administration Agitation Lamotrigine 200 mg 12/02/20 22:00 12/09/20 21:10 Lamotrigine 100 Mg Tab PO 200 mg HS BHAVEHS Administration Lorazepam 2 mg 12/06/20 01:29 12/06/20 01:49 Lorazepam 2 Mg/Ml Vial IM 2 mg Q6H PRN Administration Agitation Losartan Potassium 100 mg 12/03/20 10:00 12/10/20 09:25 Losartan 50 Mg Tab PO Not Given QDAY BHAVESH Melatonin 5 mg 12/01/20 22:30 12/05/20 21:13 Melatonin 5 Mg Tab PO 5 mg QHS PRN Administration Sleep Mirtazapine 15 mg 12/04/20 22:00 12/09/20 21:10 Mirtazapine 15 Mg Tab PO 15 mg QHS BHAVESH Administration Multivitamins 1 each 12/03/20 10:00 12/10/20 09:20 Multivitamins ,Therapeutic Tab PO 1 each DAILY BHAVESH Administration Ondansetron HCl 4 mg 12/04/20 14:47 12/05/20 07:36 Ondansetron 4 Mg Odt Tab PO 4 mg Q8H PRN Administration Nausea And Vomiting Oxycodone/Acetaminophen 1 tab 12/02/20 11:59 12/08/20 20:20 Oxycodone /Acetaminophen 5-325mg Tab PO 1 tab Q6HR PRN Administration PAIN Valproic Acid 500 mg 12/08/20 22:00 12/09/20 21:10 Valproic Acid 250 Mg Cap PO 500 mg QHS BHAVESH Administration Valproic Acid 250 mg 12/08/20 14:00 12/10/20 14:07 Valproic Acid 250 Mg Cap PO 250 mg 0800,1400 BHAVESH Administration Venlafaxine HCl 75 mg 12/04/20 10:00 12/10/20 09:20 Venlafaxine Xr 75 Mg Cap PO 75 mg QDAY BHAVESH Administration Nutrition/Malnutrition Assess - Dietary Evaluation Nutrition/Malnutrition Findings: Nutrition Notes Start: 12/05/20 09:48 Freq: Status: Active Protocol: Document 12/09/20 12:13 CW (Rec: 12/09/20 12:20 CW [id number]) Nutrition Notes Initial or Follow up Reassessment Current Diagnosis COPD,Diabetes,Hypertension Other Pertinent Diagnosis UTI, bipolar, anxiety/ depression, chronic bronchitis Current Diet Pureed Cardiac/consistent carb Labs/Tests POC BG 80 Pertinent Medications Remeron Height 5 ft 8 in Weight 69.4 kg [place] Body Weight (kg) 63.63 BMI 23.2 Weight change and time frame weight stable at this time Weight Status Appropriate Subjective/Other Information F/U fo PO intakes and ONS tolerance. Pt is drinking all of the ONS, snacks thoughoutthe day, and eating 83% of meals. 1X event of hypoglycemia which was treated by staff with PO intake of carbohydrates Percent of energy/protein needs met: 100%/100% Burn Absent Trauma Absent GI Symptoms None Difficulty In Chewing Current % PO Fair (50-74%) Minimum of two criteria No #2 Nutrition Diagnosis Inadequate oral intake Diagnosis Progress(for reassessment Continues documentation) #1 Nutrition Diagnosis Biting/Chewing (masticatory) difficulty Diagnosis Progress(for reassessment Continues documentation) Is patient on ventilator? No Is Patient Ambulatory and/or Out of Bed Yes REE-(Harshaw-St. Jeor-ambulatory/OOB) [ 0705.750 [id number]] Calculation Used for Recommendations [facility] Additional Notes Protein needs: 69-83g (1-1.2 g /kg) Fluid needs: 1ml/kcal or MD order Nutrition Intervention Change Diet Order: Continue pureed cardiac/ consistent carbohydrate Add Supplement/Snack (indicate name/kcal Ensure Enlive BID /protein ) Provides kCal: 700 Provides Protein (gm) 40 Goal #1 Meet at least 75% of energy and protein needs Anticipated Discharge Needs: Pureed cardiac/consistent carb with ONS PRN Follow-Up By: 12/12/20 Additional Comments F/U intakes and ONS tolerance
[2020-12-10] MEDS: DONEPEZIL 5 MG TAB PO SCH (21:47)
[2020-12-10] MEDS: lamoTRIgine 100 MG TAB PO SCH (21:47)
[2020-12-10] MEDS: MIRTAZAPINE 15 MG TAB PO SCH (21:47)
[2020-12-11] MEDS: LOSARTAN 50 MG TAB PO SCH (09:00)
--- NOTE | 2020-12-11 09:00 | Progress Note ---
Subjective Date of service: 12/11/20 Principal diagnosis: MDD Subjective Comment: Per nurse note: pt has been sad and appears depressed and withdrawn. pt has been compliant w/ meds and cooperative w/ staff. pt has not been engaged during groups or social w/ others. pt spoke briefly w/ her sister and stated she continues to feel depressed. The patient was seen today. She is in the dayroom. She appears down. She says she's not doing good. When asked what was wrong, the patient begins to cry. She patient says she "doesn't care about living" but states "I'm not going to do anything to myself." She says "I'm ready to go home and that's why I feel like this. I'm not going to do anything to myself." She denies hallucinations. Reason to continue inpatient psychiatric hospitalization: The patient seems withdrawn and severely depressed REVIEW OF SYSTEMS Constitutional: Negative for weight loss ENT: Negative for stridor Respiratory: Negative for cough or hemoptysis All other systems reviewed and are negative MENTAL STATUS EXAMINATION General Appearance and Behavior: Age appropriate, good hygiene, wearing appropriate clothes,, good eye contact Cooperation: Participating/engaged, but Guarded Psychomotor Behavior: Psychomotor normal Mood: "not too good" Affect and affective range: congruent with mood, tearfu; Thought Process:logical Thought Content: none Speech: Normal rate, volume and rhythm Intellectual Functioning: Average Suicidal Ideation: Denies Homicidal Ideation: Denies HI Impulse Control: Impaired Insight and Judgment: Limited insight and judgment Memory: Normal Attention: Normal Orientation: Alert, oriented. Assessment and Plan (1) MDD (major depressive disorder) Current Visit: Yes Status: Acute F32.9 Treatment Plan Patient admitted for inpatient psychiatric evaluation, medication adjustment and close monitoring The patient's behavior, mood, sleep and appetite will be closely monitored. Patient enrolled in individual and group therapeutic sessions and encouraged to attend. Patient provided with a safe and structured environment. Patient's physical health needs will be addressed by the Hospitalist. Hospitalist Consulted Labs including CBC, CMP, Lipid profile and Hemoglobin A1C levels ordered for baseline reference Valproic level 70.9 Social Assessment will be completed and the Spring Inspector will work with patient and family to ensure a suitable and safe disposition Medication adjustment will be made as clinically indicated Start Abilify 5mg po daily for resistant depression Increased Effexor 150mg po daily Usual Wellness Restorationism/Preservation: - Start Trazodone 50 mg po QHS & 50 mg po QHS PRN between 10 PM & 2 AM for insomnia - Start Melatonin 5 mg po QHS to promote circadian rhythm - Start [place]-3 for brain health, reduce impulsivity, and as adjunctive treatment for mood disorder, continue upon discharge given overall benefits. - Start B1 prophylaxis with 200 mg po for 5 days The patient agreed on the treatment plan, understood the risk, benefit, alternative treatment, potential consequence of no treatment, and gave informed consent. Estimated days: 4 Post hospital care: primary care provider, psychiatric provider Medications and Allergies Allergies Allergy/AdvReac Type Severity Reaction Status Date / Time codeine Allergy Unknown Verified 12/01/20 22:03 morphine Allergy Unknown Verified 12/01/20 22:06 NSAIDS (Non-Steroidal Allergy Unknown Verified 12/01/20 22:06 Anti-Inflamma Home Medications Medication Instructions Recorded Confirmed Last Taken Type ARIPiprazole [Abilify] 20 mg PO HS 12/01/20 12/01/20 Unknown History Albuterol Sulfate [Proventil Hfa] 90 mcg IH Q6H 12/01/20 12/01/20 Unknown History Benztropine [Cogentin] 2 mg PO BID 12/01/20 12/01/20 Unknown History Budesonide-Formoterol 160-4.5 2 puff INHALATION BID 12/01/20 12/01/20 Unknown History Citalopram [Celexa] 20 mg PO HS 12/01/20 12/01/20 Unknown History Fluticasone/Umeclidin/Vilanter 1 puff INHALATION DAILY 12/01/20 12/01/20 Unknown History Gabapentin 300 mg PO BID 12/01/20 12/01/20 Unknown History Levalbuterol HCl [Xopenex] 1 ampul TID 12/01/20 12/01/20 Unknown History Losartan-Hctz 100-25 mg Tab 1 tab PO DAILY 12/01/20 12/01/20 Unknown History Mirabegron [Myrbetriq] 50 mg PO QDAY 12/01/20 12/01/20 Unknown History Multivitamin Tab [Multiple Vitamin 1 tab PO DAILY 12/01/20 12/01/20 Unknown History TAB (Theragran)] amLODIPine [Norvasc] 10 mg PO DAILY 12/01/20 12/01/20 Unknown History donepeziL [Aricept] 5 mg PO HS 12/01/20 12/01/20 Unknown History hydrOXYzine HCL [Atarax] 1 tab PO Q8H PRN 12/01/20 12/01/20 Unknown History lamoTRIgine [LaMICtal] 200 mg PO HS 12/01/20 12/01/20 Unknown History oxyCODONE /ACETAMINOPHEN [Percocet 1 tab PO Q6HR PRN 12/01/20 12/01/20 Unknown History 5/325] Active Meds: Active Medications Acetaminophen (Acetaminophen 325 Mg Tab) 650 mg PO Q6H PRN PRN Reason: Pain, Mild (1-3) Last Admin: 12/03/20 21:31 Dose: 650 mg Documented by: Albuterol (Albuterol 2.5 Mg/3 Ml Nebu) 2.5 mg IH Q4HRT PRN PRN Reason: Shortness Of Breath Amlodipine Besylate (Amlodipine 10 Mg Tab) 10 mg PO DAILY [facility] Last Admin: 12/10/20 09:25 Dose: 10 mg Documented by: Arformoterol Tartrate (Arformoterol 15 Mcg/2 Ml Nebu) 15 mcg IH Q12HRT [facility] Last Admin: 12/10/20 22:17 Dose: 15 mcg Documented by: Budesonide (Budesonide 0.5 Mg/2 Ml Nebu) 0.5 mg IH Q12HRT [facility] Last Admin: 12/10/20 22:17 Dose: 0.5 mg Documented by: Donepezil HCl (Donepezil 5 Mg Tab) 5 mg PO [facility] Last Admin: 12/10/20 21:47 Dose: 5 mg Documented by: Gabapentin (Gabapentin 300 Mg Cap) 300 mg PO BID [facility] Last Admin: 12/10/20 21:47 Dose: 300 mg Documented by: Haloperidol Lactate (Haloperidol Lactate 5 Mg/1 Ml Inj) 5 mg IM Q6H PRN PRN Reason: Agitation Last Admin: 12/06/20 01:49 Dose: 5 mg Documented by: Lamotrigine (Lamotrigine 100 Mg Tab) [address] [facility] Last Admin: 12/10/20 21:47 Dose: 200 mg Documented by: Lorazepam (Lorazepam 2 Mg/Ml Vial) 2 mg IM Q6H PRN PRN Reason: Agitation Last Admin: 12/06/20 01:49 Dose: 2 mg Documented by: Losartan Potassium (Losartan 50 Mg Tab) 100 mg PO QDAY [facility] Last Admin: 12/10/20 09:25 Dose: Not Given Documented by: Melatonin (Melatonin 5 Mg Tab) 5 mg PO QHS PRN PRN Reason: Sleep Last Admin: 12/05/20 21:13 Dose: 5 mg Documented by: Mirtazapine (Mirtazapine 15 Mg Tab) 15 mg PO QHS [facility] Last Admin: 12/10/20 21:47 Dose: 15 mg Documented by: Multivitamins (Multivitamins ,Therapeutic Tab) 1 each PO DAILY [facility] Last Admin: 12/10/20 09:20 Dose: 1 each Documented by: Ondansetron HCl (Ondansetron 4 Mg Odt Tab) 4 mg PO Q8H PRN PRN Reason: Nausea And Vomiting Last Admin: 12/05/20 07:36 Dose: 4 mg Documented by: Oxycodone/Acetaminophen (Oxycodone /Acetaminophen 5-325mg Tab) 1 tab PO Q6HR PRN PRN Reason: PAIN Last Admin: 12/08/20 20:20 Dose: 1 tab Documented by: Valproic Acid (Valproic Acid 250 Mg Cap) 500 mg PO QHS [facility] Last Admin: 12/10/20 21:47 Dose: 500 mg Documented by: Valproic Acid (Valproic Acid 250 Mg Cap) 250 mg PO 0800,1400 [facility] Last Admin: 12/10/20 14:07 Dose: 250 mg Documented by: Venlafaxine HCl (Venlafaxine Xr 75 Mg Cap) 75 mg PO QDAY [facility] Last Admin: 12/10/20 09:20 Dose: 75 mg Documented by: Results - Results Labs/Vitals: Laboratory Last Values WBC 6.4 K/mm3 (4.5-11.0) 12/02/20 23:25 RBC 4.09 M/mm3 (3.65-5.03) 12/02/20 23:25 Hgb 11.6 gm/dl (10.1-14.3) 12/02/20 23:25 Hct 35.5 % (30.3-42.9) 12/02/20 23:25 MCV 87 fl (79-97) 12/02/20 23:25 MCH 28 pg (28-32) 12/02/20 23:25 MCHC 33 % (30-34) 12/02/20 23: RDW 15.7 % (13.2-15.2) H 12/02/20 23:25 Plt Count 296 K/mm3 (140-440) 12/02/20 23:25 Lymph % (Auto) 22.4 % (13.4-35.0) 12/02/20 23: [place] % (Auto) 11.0 % (0.0-7.3) H 12/02/20 23: Eos % (Auto) 1.3 % (0.0-4.3) 12/02/20: Baso % (Auto) 0.3 % (0.0-1.8) 12/02/20: Lymph # (Auto) 1.4 K/mm3 (1.2-5.4) 12/02/20: [place] # (Auto) 0.7 K/mm3 (0.0-0.8) 12/02/20: Eos # (Auto) 0.1 K/mm3 (0.0-0.4) 12/02/20: Baso # (Auto) 0.0 K/mm3 (0.0-0.1) 12/02/20: Seg Neutrophils % 65.0 % (40.0-70.0) 12/02/20: Seg Neutrophils # 4.1 K/mm3 (1.8-7.7) 12/02/20 23:25 Sodium 135 mmol/L (137-145) L 12/02/20 23:25 Potassium 3.9 mmol/L (3.6-5.0) 12/02/20: Chloride 97.3 mmol/L (98-107) L 12/02/20: Carbon Dioxide 25 mmol/L (22-30) 12/02/20 23:25 Anion Gap 17 mmol/L 12/02/20 23:25 BUN 13 mg/dL (7-17) 12/02/20 23:25 Creatinine 0.8 mg/dL (0.6-1.2) 12/02/20 23:25 Estimated GFR > 60 ml/min 12/02/20 23:25 BUN/Creatinine Ratio 16 % 02/22/21 23:25 Glucose 105 mg/dL (65-100) H 12/02/20 23:25 POC Glucose 72 mg/dL (70-105) 12/11/20 06:09 Hemoglobin A1c 6.1 % (4-6) H 12/02/20 23:25 Calcium 9.8 mg/dL (8.4-10.2) 12/02/20 23:25 Total Bilirubin 0.20 mg/dL (0.1-1.2) 12/02/20 23:25 AST 19 units/L (5-40) 12/02/20 23:25 ALT 11 units/L (7-56) 12/02/20 23:25 Alkaline Phosphatase 76 units/L (35-129) 12/02/20 23:25 Total Protein 7.3 g/dL (6.3-8.2) 12/02/20 23:25 Albumin 3.9 g/dL (3.9-5) 12/02/20 23:25 Albumin/Globulin Ratio 1.1 % 12/02/20 23:25 Triglycerides 88 mg/dL (2-149) 12/02/20 23:25 Cholesterol 156 mg/dL (50-199) 12/02/20 23:25 LDL Cholesterol Direct 100 mg/dL (50-130) 12/02/20 23:25 HDL Cholesterol 51 mg/dL (40-59) 12/02/20 23:25 Cholesterol/HDL Ratio 3.05 % 12/02/20 23:25 TSH 1.460 mlU/mL (0.270-4.200) 12/02/20 23:25 Valproic Acid 70.9 ug/mL (50-100) 12/09/20 05:42 Last Vital Signs Temp 98.1 F 12/11/20 08:30 Pulse 70 12/11/20 08:30 Resp 18 12/11/20 08:30 BP 129/62 12/11/20 08:30 Pulse Ox 97 12/11/20 08:30
[2020-12-11] MEDS: amLODIPine 10 MG TAB PO SCH (09:01)
[2020-12-11] MEDS: VENLAFAXINE XR 75 MG CAP PO SCH ×2 (09:01→10:27)
[2020-12-11] MEDS: VALPROIC ACID 250 MG CAP PO SCH ×3 (09:03→21:15)
[2020-12-11] MEDS: MULTIVITAMINS ,THERAPEUTIC TAB PO SCH (09:04)
[2020-12-11] MEDS: ARIPiprazole 5 MG TAB PO SCH (10:27)
[2020-12-11] MEDS: GABAPENTIN 300 MG CAP PO SCH ×2 (10:27→21:16)
[2020-12-11] MEDS: ARFORMOTEROL 15 MCG/2 ML NEBU IH SCH ×2 (12:09→23:15)
[2020-12-11] MEDS: BUDESONIDE 0.5 MG/2 ML NEBU IH SCH ×2 (12:09→23:15)
[2020-12-11] MEDS ORDERED: hydrOXYzine PAMOATE 25 MG CAP PO SCH (13:00)
[2020-12-11] MEDS ORDERED: hydrOXYzine PAMOATE 25 MG CAP PO PRN (13:00)
--- NOTE | 2020-12-11 19:26 | Progress Note ---
Assessment and Plan - Patient Problems (1) Vascular dementia with behavioral disturbance Current Visit: Yes Status: Acute Plan to address problem: Verbal prompting, verbal redirection, benzodiazepine therapy as clinically indicated. (2) Cerebral atherosclerosis Current Visit: Yes Status: Acute Plan to address problem: Antiplatelet therapy as clinically indicated, supportive care, risk factor reduction. (3) Hypertension Current Visit: Yes Status: Acute Qualifiers: Hypertension type: essential hypertension Qualified Code(s): I10 - Essential (primary) hypertension Plan to address problem: Monitor blood pressure every shift, continue medical management (4) Diabetes Current Visit: Yes Status: Acute Plan to address problem: Insulin protocol, Accu-Chek, consistent carbohydrate diet, hypoglycemia betito col. History Interval history: 75 YO Female with Vascular Dementia with Behavioral Disturbance, Cerebral Atherosclerosis, HTN, DM, GERD, WILFREOD, admitted to [facility] for Psychiatric Stabilization. Patient seen and evaluated in the recreation room. Patient resting comfortably and denies complaints. No reported nursing events. Patient cooperative with exam and interview. Hospitalist Physical - Constitutional Vitals: Temp Pulse Resp BP Pulse Ox 98.1 F 88 18 129/62 100 12/11/20 08:30 12/11/20 11:58 12/11/20 11:58 12/11/20 09:00 12/11/20 12:09 General appearance: Present: no acute distress, well-nourished - EENT Eyes: Present: PERRL, EOM intact ENT: hearing intact - Neck Neck: Present: supple - Respiratory Respiratory: bilateral: CTA - Cardiovascular Rhythm: regular Heart Sounds: Present: S1 & S2 - Extremities Extremities: no ischemia Peripheral Pulses: within normal limits - Abdominal General gastrointestinal: soft, non-tender, non-distended - Integumentary Integumentary: Present: clear, dry - Psychiatric Psychiatric: cooperative - Neurologic Neurologic: CNII-XII intact Results - Labs CBC & Chem 7: 12/02/20 23:25 12/02/20 23:25 Labs: Laboratory Last Values WBC 6.4 K/mm3 (4.5-11.0) 12/02/20 23:25 RBC 4.09 M/mm3 (3.65-5.03) 12/02/20 23:25 Hgb 11.6 gm/dl (10.1-14.3) 12/02/20 23:25 Hct 35.5 % (30.3-42.9) 12/02/20 23:25 MCV 87 fl (79-97) 12/02/20 23:25 MCH 28 pg (28-32) 12/02/20 23: MCHC 33 % (30-34) 12/02/20 23:25 RDW 15.7 % (13.2-15.2) H 12/02/20 23:25 Plt Count 296 K/mm3 (140-440) 12/02/20 23: Lymph % (Auto) 22.4 % (13.4-35.0) 12/02/20 23: [place] % (Auto) 11.0 % (0.0-7.3) H 12/02/20: Eos % (Auto) 1.3 % (0.0-4.3) 12/02/20: Baso % (Auto) 0.3 % (0.0-1.8) 12/02/20: Lymph # (Auto) 1.4 K/mm3 (1.2-5.4) 12/02/20 23:25 [place] # (Auto) 0.7 K/mm3 (0.0-0.8) 12/02/20 23: Eos # (Auto) 0.1 K/mm3 (0.0-0.4) 12/02/20: Baso # (Auto) 0.0 K/mm3 (0.0-0.1) 12/02/20 23: Seg Neutrophils % 65.0 % (40.0-70.0) 12/02/20: Seg Neutrophils # 4.1 K/mm3 (1.8-7.7) 12/02/20 23:25 Sodium 135 mmol/L (137-145) L 12/02/20 23:25 Potassium 3.9 mmol/L (3.6-5.0) 12/02/20 23:25 Chloride 97.3 mmol/L (98-107) L 12/02/20 23:25 Carbon Dioxide 25 mmol/L (22-30) 12/02/20 23:25 Anion Gap 17 mmol/L 12/02/20 23:25 BUN 13 mg/dL (7-17) 12/02/20 23:25 Creatinine 0.8 mg/dL (0.6-1.2) 12/02/20 23:25 Estimated GFR > 60 ml/min 12/02/20 23:25 BUN/Creatinine Ratio 16 % 12/02/20 23:25 Glucose 105 mg/dL (65-100) H 12/02/20 23:25 POC Glucose 72 mg/dL (70-105) 12/11/20 06:09 Hemoglobin A1c 6.1 % (4-6) H 12/02/20 23:25 Calcium 9.8 mg/dL (8.4-10.2) 12/02/20 23:25 Total Bilirubin 0.20 mg/dL (0.1-1.2) 12/02/20 23:25 AST 19 units/L (5-40) 12/02/20 23:25 ALT 11 units/L (7-56) 12/02/20 23:25 Alkaline Phosphatase 76 units/L (35-129) 12/02/20 23:25 Total Protein 7.3 g/dL (6.3-8.2) 12/02/20 23:25 Albumin 3.9 g/dL (3.9-5) 12/02/20 23:25 Albumin/Globulin Ratio 1.1 % 12/02/20 23:25 Triglycerides 88 mg/dL (2-149) 12/02/20 23:25 Cholesterol 156 mg/dL (50-199) 12/02/20 23:25 LDL Cholesterol Direct 100 mg/dL (50-130) 12/02/20 23:25 HDL Cholesterol 51 mg/dL (40-59) 12/02/20 23:25 Cholesterol/HDL Ratio 3.05 % 12/02/20 23:25 TSH 1.460 mlU/mL (0.270-4.200) 12/02/20 23:25 Valproic Acid 70.9 ug/mL (50-100) 12/09/20 05:42 Hester/IV: Voiding Method Toilet Active Medications - Current Medications Current Medications: Generic Name Dose Route Start Last Admin Trade Name Freq PRN Reason Stop Dose Admin Acetaminophen 650 mg 12/01/20 22:30 12/03/20 21:31 Acetaminophen 325 Mg Tab PO 650 mg Q6H PRN Administration Pain, Mild (1-3) Albuterol 2.5 mg 12/09/20 00:05 Albuterol 2.5 Mg/3 Ml Nebu IH Q4HRT PRN Shortness Of Breath Amlodipine Besylate 10 mg 12/03/20 10:00 12/11/20 09:01 Amlodipine 10 Mg Tab PO 10 mg DAILY BHAVESH Administration Arformoterol Tartrate 15 mcg 12/02/20 20:00 12/11/20 12:09 Arformoterol 15 Mcg/2 Ml Nebu IH 15 mcg Q12HRT BHAVESH Administration Aripiprazole 5 mg 12/11/20 10:00 12/11/20 10:27 Aripiprazole 5 Mg Tab PO 5 mg QDAY BHAVESH Administration Budesonide 0.5 mg 12/10/20 14:00 12/11/20 12:09 Budesonide 0.5 Mg/2 Ml Nebu IH 0.5 mg Q12HRT BHAVESH Administration Donepezil HCl 5 mg 12/02/20 22:00 12/10/20 21:47 Donepezil 5 Mg Tab PO 5 mg HS BHAVESH Administration Gabapentin 300 mg 12/02/20 22:00 12/11/20 10:27 Gabapentin 300 Mg Cap PO 300 mg BID BHAVESH Administration Haloperidol Lactate 5 mg 12/06/20 01:30 12/06/20 01:49 Haloperidol Lactate 5 Mg/1 Ml Inj IM 5 mg Q6H PRN Administration Agitation Hydroxyzine Pamoate 25 mg 12/11/20 13:00 Hydroxyzine Pamoate 25 Mg Cap PO BID PRN Anxiety Lamotrigine 200 mg 12/02/20 22:00 12/10/20 21:47 Lamotrigine 100 Mg Tab PO 200 mg HS BHAVESH Administration Lorazepam 2 mg 12/06/20 01:29 12/06/20 01:49 Lorazepam 2 Mg/Ml Vial IM 2 mg Q6H PRN Administration Agitation Losartan Potassium 100 mg 12/03/20 10:00 12/11/20 09:00 Losartan 50 Mg Tab PO 100 mg QDAY BHAVESH Administration Melatonin 5 mg 12/01/20 22:30 12/05/20 21:13 Melatonin 5 Mg Tab PO 5 mg QHS PRN Administration Sleep Mirtazapine 15 mg 12/04/20 22:00 12/10/20 21:47 Mirtazapine 15 Mg Tab PO 15 mg QHS BHAVESH Administration Multivitamins 1 each 12/03/20 10:00 12/11/20 09:04 Multivitamins ,Therapeutic Tab PO 1 each DAILY BHAVESH Administration Ondansetron HCl 4 mg 12/04/20 14:47 12/05/20 07:36 Ondansetron 4 Mg Odt Tab PO 4 mg Q8H PRN Administration Nausea And Vomiting Oxycodone/Acetaminophen 1 tab 12/02/20 11:59 12/08/20 20:20 Oxycodone /Acetaminophen 5-325mg Tab PO 1 tab Q6HR PRN Administration PAIN Valproic Acid 500 mg 12/08/20 22:00 12/10/20 21:47 Valproic Acid 250 Mg Cap PO 500 mg QHS BHAVESH Administration Valproic Acid 250 mg 12/08/20 14:00 12/11/20 13:52 Valproic Acid 250 Mg Cap PO 250 mg 0800,1400 BHAVESH Administration Venlafaxine HCl 150 mg 12/11/20 10:00 12/11/20 10:27 Venlafaxine Xr 75 Mg Cap PO 150 mg QDAY BHAVESH Administration Nutrition/Malnutrition Assess - Dietary Evaluation Nutrition/Malnutrition Findings: Nutrition Notes Start: 12/05/20 09:48 Freq: Status: Active Protocol: Document 12/09/20 12:13 CW (Rec: 12/09/20 12:20 CW [email or web address]) Nutrition Notes Initial or Follow up Reassessment Current Diagnosis COPD,Diabetes,Hypertension Other Pertinent Diagnosis UTI, bipolar, anxiety/ depression, chronic bronchitis Current Diet Pureed Cardiac/consistent carb Labs/Tests POC BG 80 Pertinent Medications Remeron Height 5 ft 8 in Weight 69.4 kg [place] Body Weight (kg) 63.63 BMI 23.2 Weight change and time frame weight stable at this time Weight Status Appropriate Subjective/Other Information F/U fo PO intakes and ONS tolerance. Pt is drinking all of the ONS, snacks thoughoutthe day, and eating 83% of meals. 1X event of hypoglycemia which was treated by staff with PO intake of carbohydrates Percent of energy/protein needs met: 100%/100% Burn Absent Trauma Absent GI Symptoms None Difficulty In Chewing Current % PO Fair (50-74%) Minimum of two criteria No #2 Nutrition Diagnosis Inadequate oral intake Diagnosis Progress(for reassessment Continues documentation) #1 Nutrition Diagnosis Biting/Chewing (masticatory) difficulty Diagnosis Progress(for reassessment Continues documentation) Is patient on ventilator? No Is Patient Ambulatory and/or Out of Bed Yes REE-([facility]. Jeor-ambulatory/OOB) [ [id number] [id number]] Calculation Used for Recommendations [facility] Additional Notes Protein needs: 69-83g (1-1.2 g /kg) Fluid needs: 1ml/kcal or MD order Nutrition Intervention Change Diet Order: Continue pureed cardiac/ consistent carbohydrate Add Supplement/Snack (indicate name/kcal Ensure Enlive BID /protein ) Provides kCal: 700 Provides Protein (gm) 40 Goal #1 Meet at least 75% of energy and protein needs Anticipated Discharge Needs: Pureed cardiac/consistent carb with ONS PRN Follow-Up By: 12/12/20 Additional Comments F/U intakes and ONS tolerance
[2020-12-11] MEDS: lamoTRIgine 100 MG TAB PO SCH (21:15)
[2020-12-11] MEDS: MIRTAZAPINE 15 MG TAB PO SCH (21:15)
[2020-12-11] MEDS: DONEPEZIL 5 MG TAB PO SCH (21:15)
[2020-12-11] MEDS: oxyCODONE /ACETAMINOPHEN 5-325MG TAB PO PRN (21:16)
--- NOTE | 2020-12-12 08:35 | Progress Note ---
Subjective Date of service: 12/12/20 Principal diagnosis: MDD Subjective Comment: The patient was seen today. She is in her room getting ready to go to the dayroom. She says she's not feeling good and "feels like I'm going to the dungeon." The patient still appears down. She denies SI/HI or hallucinations of any kind. Reason to continue inpatient psychiatric hospitalization: The patient seems withdrawn and severely depressed REVIEW OF SYSTEMS Constitutional: Negative for weight loss ENT: Negative for stridor Respiratory: Negative for cough or hemoptysis All other systems reviewed and are negative MENTAL STATUS EXAMINATION General Appearance and Behavior: Age appropriate, good hygiene, wearing appropriate clothes,, good eye contact Cooperation: Participating/engaged, but Guarded Psychomotor Behavior: Psychomotor normal Mood: "not too good" Affect and affective range: congruent with mood, tearfu; Thought Process:logical Thought Content: none Speech: Normal rate, volume and rhythm Intellectual Functioning: Average Suicidal Ideation: Denies Homicidal Ideation: Denies HI Impulse Control: Impaired Insight and Judgment: Limited insight and judgment Memory: Normal Attention: Normal Orientation: Alert, oriented. Assessment and Plan (1) MDD (major depressive disorder) Current Visit: Yes Status: Acute F32.9 Treatment Plan Patient admitted for inpatient psychiatric evaluation, medication adjustment and close monitoring The patient's behavior, mood, sleep and appetite will be closely monitored. Patient enrolled in individual and group therapeutic sessions and encouraged to attend. Patient provided with a safe and structured environment. Patient's physical health needs will be addressed by the Hospitalist. 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 - Start B1 prophylaxis with 200 mg po for 5 days The patient agreed on the treatment plan, understood the risk, benefit, alternative treatment, potential consequence of no treatment, and gave informed consent. Estimated days: 4 Post hospital care: primary care provider, psychiatric provider Medications and Allergies Allergies Allergy/AdvReac Type Severity Reaction Status Date / Time codeine Allergy Unknown Verified 12/01/20 22:03 morphine Allergy Unknown Verified 12/01/20 22:06 NSAIDS (Non-Steroidal Allergy Unknown Verified 12/01/20 22:06 Anti-Inflamma Home Medications Medication Instructions Recorded Confirmed Last Taken Type ARIPiprazole [Abilify] 20 mg PO HS 12/01/20 12/01/20 Unknown History Albuterol Sulfate [Proventil Hfa] 90 mcg IH Q6H 12/01/20 12/01/20 Unknown History Benztropine [Cogentin] 2 mg PO BID 12/01/20 12/01/20 Unknown History Budesonide-Formoterol 160-4.5 2 puff INHALATION BID 12/01/20 12/01/20 Unknown History Citalopram [Celexa] 20 mg PO HS 12/01/20 12/01/20 Unknown History Fluticasone/Umeclidin/Vilanter 1 puff INHALATION DAILY 12/01/20 12/01/20 Unknown History Gabapentin 300 mg PO BID 12/01/20 12/01/20 Unknown History Levalbuterol HCl [Xopenex] 1 ampul TID 12/01/20 12/01/20 Unknown History Losartan-Hctz 100-25 mg Tab 1 tab PO DAILY 12/01/20 12/01/20 Unknown History Mirabegron [Myrbetriq] 50 mg PO QDAY 12/01/20 12/01/20 Unknown History Multivitamin Tab [Multiple Vitamin 1 tab PO DAILY 12/01/20 12/01/20 Unknown History TAB (Theragran)] amLODIPine [Norvasc] 10 mg PO DAILY 12/01/20 12/01/20 Unknown History donepeziL [Aricept] 5 mg PO HS 12/01/20 12/01/20 Unknown History hydrOXYzine HCL [Atarax] 1 tab PO Q8H PRN 12/01/20 12/01/20 Unknown History lamoTRIgine [LaMICtal] 200 mg PO HS 12/01/20 12/01/20 Unknown History oxyCODONE /ACETAMINOPHEN [Percocet 1 tab PO Q6HR PRN 12/01/20 12/01/20 Unknown History ] Active Meds: Active Medications Acetaminophen (Acetaminophen 325 Mg Tab) 650 mg PO Q6H PRN PRN Reason: Pain, Mild (1-3) Last Admin: 12/03/20 21:31 Dose: 650 mg Documented by: Albuterol (Albuterol 2.5 Mg/3 Ml Nebu) 2.5 mg IH Q4HRT PRN PRN Reason: Shortness Of Breath Amlodipine Besylate (Amlodipine 10 Mg Tab) 10 mg PO DAILY [facility] Last Admin: 12/11/20 09:01 Dose: 10 mg Documented by: Arformoterol Tartrate (Arformoterol 15 Mcg/2 Ml Nebu) 15 mcg IH Q12HRT [facility] Last Admin: 12/11/20 23:15 Dose: 15 mcg Documented by: Aripiprazole (Aripiprazole 5 Mg Tab) 5 mg PO QDAY [facility] Last Admin: 12/11/20 10:27 Dose: 5 mg Documented by: Budesonide (Budesonide 0.5 Mg/2 Ml Nebu) 0.5 mg IH Q12HRT [facility] Last Admin: 12/11/20 23:15 Dose: 0.5 mg Documented by: Donepezil HCl (Donepezil 5 Mg Tab) 5 mg PO [facility] Last Admin: 12/11/20 21:15 Dose: 5 mg Documented by: Gabapentin (Gabapentin 300 Mg Cap) 300 mg PO BID [facility] Last Admin: 12/11/20 21:16 Dose: 300 mg Documented by: Haloperidol Lactate (Haloperidol Lactate 5 Mg/1 Ml Inj) 5 mg IM Q6H PRN PRN Reason: Agitation Last Admin: 12/06/20 01:49 Dose: 5 mg Documented by: Hydroxyzine Pamoate (Hydroxyzine Pamoate 25 Mg Cap) 25 mg PO BID PRN PRN Reason: Anxiety Lamotrigine (Lamotrigine 100 Mg Tab) 200 mg PO [facility] Last Admin: 12/11/20 21:15 Dose: 200 mg Documented by: Lorazepam (Lorazepam 2 Mg/Ml Vial) 2 mg IM Q6H PRN PRN Reason: Agitation Last Admin: 12/06/20 01:49 Dose: 2 mg Documented by: Losartan Potassium (Losartan 50 Mg Tab) 100 mg PO QDAY [facility] Last Admin: 12/11/20 09:00 Dose: 100 mg Documented by: Melatonin (Melatonin 5 Mg Tab) 5 mg PO QHS PRN PRN Reason: Sleep Last Admin: 12/05/20 21:13 Dose: 5 mg Documented by: Mirtazapine (Mirtazapine 15 Mg Tab) 15 mg PO QHS [facility] Last Admin: 12/11/20 21:15 Dose: 15 mg Documented by: Multivitamins (Multivitamins ,Therapeutic Tab) 1 each PO DAILY [facility] Last Admin: 12/11/20 09:04 Dose: 1 each Documented by: Ondansetron HCl (Ondansetron 4 Mg Odt Tab) 4 mg PO Q8H PRN PRN Reason: Nausea And Vomiting Last Admin: 12/05/20 07:36 Dose: 4 mg Documented by: Oxycodone/Acetaminophen (Oxycodone /Acetaminophen 5-325mg Tab) 1 tab PO Q6HR PRN PRN Reason: PAIN Last Admin: 12/11/20 21:16 Dose: 1 tab Documented by: Valproic Acid (Valproic Acid 250 Mg Cap) 500 mg PO QHS [facility] Last Admin: 12/11/20 21:15 Dose: 500 mg Documented by: Valproic Acid (Valproic Acid 250 Mg Cap) 250 mg PO 0800,1400 [facility] Last Admin: 12/11/20 13:52 Dose: 250 mg Documented by: Venlafaxine HCl (Venlafaxine Xr 75 Mg Cap) 150 mg PO QDAY [facility] Last Admin: 12/11/20 10:27 Dose: 150 mg Documented by: Results - Results Labs/Vitals: Laboratory Last Values WBC 6.4 K/mm3 (4.5-11.0) 12/02/20 23:25 RBC 4.09 M/mm3 (3.65-5.03) 12/02/20 23:25 Hgb 11.6 gm/dl (10.1-14.3) 12/02/20 23:25 Hct 35.5 % (30.3-42.9) 12/02/20 23:25 MCV 87 fl (79-97) 12/02/20 23:25 MCH 28 pg (28-32) 12/02/20 23:25 MCHC 33 % (30-34) 12/02/20 23:25 RDW 15.7 % (13.2-15.2) H 12/02/20 23:25 Plt Count 296 K/mm3 (140-440) 12/02/20 23:25 Lymph % (Auto) 22.4 % (13.4-35.0) 12/02/20 23:25 [place] % (Auto) 11.0 % (0.0-7.3) H 12/02/20 23:25 Eos % (Auto) 1.3 % (0.0-4.3) 12/02/20 23:25 Baso % (Auto) 0.3 % (0.0-1.8) 12/02/20 23:25 Lymph # (Auto) 1.4 K/mm3 (1.2-5.4) 12/02/20 23:25 [place] # (Auto) 0.7 K/mm3 (0.0-0.8) 12/02/20 23:25 Eos # (Auto) 0.1 K/mm3 (0.0-0.4) 12/02/20 23:25 Baso # (Auto) 0.0 K/mm3 (0.0-0.1) 12/02/20 23:25 Seg Neutrophils % 65.0 % (40.0-70.0) 12/02/20 23: Seg Neutrophils # 4.1 K/mm3 (1.8-7.7) 12/02/20 23:25 Sodium 135 mmol/L (137-145) L 12/02/20 23:25 Potassium 3.9 mmol/L (3.6-5.0) 12/02/20 23:25 Chloride 97.3 mmol/L (98-107) L 12/02/20 23:25 Carbon Dioxide 25 mmol/L (22-30) 12/02/20 23:25 Anion Gap 17 mmol/L 12/02/20 23:25 BUN 13 mg/dL (7-17) 12/02/20 23:25 Creatinine 0.8 mg/dL (0.6-1.2) 12/02/20 23:25 Estimated GFR > 60 ml/min 12/02/20 23:25 BUN/Creatinine Ratio 16 % 12/02/20 23:25 Glucose 105 mg/dL (65-100) H 12/02/20 23:25 POC Glucose 70 mg/dL (70-105) 12/12/20 06:15 Hemoglobin A1c 6.1 % (4-6) H 12/02/20 23:25 Calcium 9.8 mg/dL (8.4-10.2) 12/02/20 23:25 Total Bilirubin 0.20 mg/dL (0.1-1.2) 12/02/20 23:25 AST 19 units/L (5-40) 12/02/20 23:25 ALT 11 units/L (7-56) 12/02/20 23:25 Alkaline Phosphatase 76 units/L (35-129) 12/02/20 23:25 Total Protein 7.3 g/dL (6.3-8.2) 12/02/20 23:25 Albumin 3.9 g/dL (3.9-5) 12/02/20 23:25 Albumin/Globulin Ratio 1.1 % 12/02/20 23:25 Triglycerides 88 mg/dL (2-149) 12/02/20 23:25 Cholesterol 156 mg/dL (50-199) 12/02/20 23:25 LDL Cholesterol Direct 100 mg/dL (50-130) 12/02/20 23:25 HDL Cholesterol 51 mg/dL (40-59) 12/02/20 23:25 Cholesterol/HDL Ratio 3.05 % 12/02/20 23:25 TSH 1.460 mlU/mL (0.270-4.200) 12/02/20 23:25 Valproic Acid 70.9 ug/mL (50-100) 12/09/20 05:42 Last Vital Signs Temp 98.2 F 12/11/20 22:00 Pulse 78 12/11/20 23:18 Resp 18 12/11/20 23:18 BP 141/65 12/11/20 22:00 Pulse Ox 100 12/11/20 23:18
[2020-12-12] MEDS: ARFORMOTEROL 15 MCG/2 ML NEBU IH SCH ×2 (08:50→22:08)
[2020-12-12] MEDS: BUDESONIDE 0.5 MG/2 ML NEBU IH SCH ×2 (08:50→22:08)
[2020-12-12] MEDS: ARIPiprazole 5 MG TAB PO SCH (10:34)
[2020-12-12] MEDS: VENLAFAXINE XR 75 MG CAP PO SCH (10:34)
[2020-12-12] MEDS: amLODIPine 10 MG TAB PO SCH (10:35)
[2020-12-12] MEDS: VALPROIC ACID 250 MG CAP PO SCH ×3 (10:35→21:23)
[2020-12-12] MEDS: GABAPENTIN 300 MG CAP PO SCH ×2 (10:36→21:24)
[2020-12-12] MEDS: MULTIVITAMINS ,THERAPEUTIC TAB PO SCH (10:36)
[2020-12-12] MEDS: LOSARTAN 50 MG TAB PO SCH (10:36)
[2020-12-12] MEDS: lamoTRIgine 100 MG TAB PO SCH (21:23)
[2020-12-12] MEDS: DONEPEZIL 5 MG TAB PO SCH (21:24)
[2020-12-12] MEDS: MELATONIN 5 MG TAB PO PRN (21:24)
[2020-12-12] MEDS: MIRTAZAPINE 15 MG TAB PO SCH (21:24)
[2020-12-13] MEDS: oxyCODONE /ACETAMINOPHEN 5-325MG TAB PO PRN ×2 (02:09→21:18)
[2020-12-13] MEDS: BUDESONIDE 0.5 MG/2 ML NEBU IH SCH ×2 (10:05→20:50)
[2020-12-13] MEDS: ARFORMOTEROL 15 MCG/2 ML NEBU IH SCH ×2 (10:07→20:50)
[2020-12-13] MEDS: GABAPENTIN 300 MG CAP PO SCH ×2 (10:44→21:18)
[2020-12-13] MEDS: VENLAFAXINE XR 75 MG CAP PO SCH (10:44)
[2020-12-13] MEDS: ARIPiprazole 5 MG TAB PO SCH (10:44)
[2020-12-13] MEDS: VALPROIC ACID 250 MG CAP PO SCH ×3 (10:45→21:18)
[2020-12-13] MEDS: amLODIPine 10 MG TAB PO SCH (10:46)
[2020-12-13] MEDS: MULTIVITAMINS ,THERAPEUTIC TAB PO SCH (10:46)
[2020-12-13] MEDS: LOSARTAN 50 MG TAB PO SCH (10:47)
--- NOTE | 2020-12-13 11:27 | Progress Note ---
Subjective Date of service: 12/13/20 Principal diagnosis: MDD Subjective Comment: Psych Progress Patient describes a good and stable mood, denies being depressed or excessively nervous. Patient eats and sleeps well. Patient denies panic attacks, recurrent nightmares or flashbacks. Patient denies symptoms suggestive of OCD or PTSD. Patient denies hallucinations, paranoia, thought interference and no features suggestive of hypomania or eloisa. Patiently completely denies suicidal or homicidal thoughts. Reason to continue inpatient psychiatric hospitalization: Pending halfway placement REVIEW OF SYSTEMS Constitutional: Negative for weight loss ENT: Negative for stridor Respiratory: Negative for cough or hemoptysis All other systems reviewed and are negative MENTAL STATUS EXAMINATION General Appearance and Behavior: Age appropriate, good hygiene, wearing appropriate clothes,, good eye contact Cooperation: Participating/engaged, but Guarded Psychomotor Behavior: Psychomotor normal Mood: "not too good" Affect and affective range: congruent with mood, tearfu; Thought Process:logical Thought Content: none Speech: Normal rate, volume and rhythm Intellectual Functioning: Average Suicidal Ideation: Denies Homicidal Ideation: Denies HI Impulse Control: Impaired Insight and Judgment: Limited insight and judgment Memory: Normal Attention: Normal Orientation: Alert, oriented. Assessment and Plan (1) MDD (major depressive disorder) Current Visit: Yes Status: Acute F32.9 Treatment Plan Patient admitted for inpatient psychiatric evaluation, medication adjustment and close monitoring The patient's behavior, mood, sleep and appetite will be closely monitored. Patient enrolled in individual and group therapeutic sessions and encouraged to attend. Patient provided with a safe and structured environment. Patient's physical health needs will be addressed by the Hospitalist. Hospitalist Consulted Labs including CBC, CMP, Lipid profile and Hemoglobin A1C levels ordered for baseline reference Valproic level 70.9 Social Assessment will be completed and the Package Sealer will work with patient and family to ensure a suitable and safe disposition Medication adjustment will be made as clinically indicated Continue current medical Usual Wellness Jain/Preservation: - Start Trazodone 50 mg po QHS & 50 mg po QHS PRN between 10 PM & 2 AM for insomnia - Start Melatonin 5 mg po QHS to promote circadian rhythm - Start [place]-3 for brain health, reduce impulsivity, and as adjunctive treatment for mood disorder, continue upon discharge given overall benefits. - Start B1 prophylaxis with 200 mg po for 5 days The patient agreed on the treatment plan, understood the risk, benefit, alternative treatment, potential consequence of no treatment, and gave informed consent. Estimated days: 1 Post hospital care: primary care provider, psychiatric provider . Assessment and Plan - Psychiatric problem (1) MDD (major depressive disorder) Current Visit: Yes Status: Acute F32.9 Treatment Plan Psychotherapy support, Patient switched to Remeron to improve sleep, Patient admitted for inpatient psychiatric evaluation, medication adjustment and close monitoring The patient's behavior, mood, sleep and appetite will be closely monitored. Patient enrolled in individual and group therapeutic sessions and encouraged to attend. Patient provided with a safe and structured environment. Patient's physical health needs will be addressed by the Hospitalist. Hospitalist Consulted Labs including CBC, CMP, Lipid profile and Hemoglobin A1C levels ordered for baseline reference Social Assessment will be completed and the Package Sealer will work with patient and family to ensure a suitable and safe disposition Medication adjustment will be made as clinically indicated Usual Wellness Jain/Preservation: - Start Trazodone 50 mg po QHS & 50 mg po QHS PRN between 10 PM & 2 AM for insomnia - Start Melatonin 5 mg po QHS to promote circadian rhythm - Start [place]-3 for brain health, reduce impulsivity, and as adjunctive treatment for mood disorder, continue upon discharge given overall benefits. - Start B1 prophylaxis with 200 mg po for 5 days The patient agreed on the treatment plan, understood the risk, benefit, alternative treatment, potential consequence of no treatment, and gave informed consent. Initial Certification Inpatient psych services: I certify that the inpatient psychiatric services are required for treatment that could reasonably be expected to improve the patient's condition. Estimated days: 3 Post hospital care: primary care provider, psychiatric provider Assessment and Plan - Patient Problems (1) MDD (major depressive disorder) Current Visit: Yes Status: Acute Medications and Allergies Allergies Allergy/AdvReac Type Severity Reaction Status Date / Time codeine Allergy Unknown Verified 12/01/20 22:03 morphine Allergy Unknown Verified 12/01/20 22:06 NSAIDS (Non-Steroidal Allergy Unknown Verified 12/01/20 22:06 Anti-Inflamma Home Medications Medication Instructions Recorded Confirmed Last Taken Type ARIPiprazole [Abilify] 20 mg PO HS 12/01/20 12/01/20 Unknown History Albuterol Sulfate [Proventil Hfa] 90 mcg IH Q6H 12/01/20 12/01/20 Unknown History Benztropine [Cogentin] 2 mg PO BID 12/01/20 12/01/20 Unknown History Budesonide-Formoterol 160-4.5 2 puff INHALATION BID 12/01/20 12/01/20 Unknown History Citalopram [Celexa] 20 mg PO HS 12/01/20 12/01/20 Unknown History Fluticasone/Umeclidin/Vilanter 1 puff INHALATION DAILY 12/01/20 12/01/20 Unknown History Gabapentin 300 mg PO BID 12/01/20 12/01/20 Unknown History Levalbuterol HCl [Xopenex] 1 ampul TID 12/01/20 12/01/20 Unknown History Losartan-Hctz 100-25 mg Tab 1 tab PO DAILY 12/01/20 12/01/20 Unknown History Mirabegron [Myrbetriq] 50 mg PO QDAY 12/01/20 12/01/20 Unknown History Multivitamin Tab [Multiple Vitamin 1 tab PO DAILY 12/01/20 12/01/20 Unknown History TAB (Theragran)] amLODIPine [Norvasc] 10 mg PO DAILY 12/01/20 12/01/20 Unknown History donepeziL [Aricept] 5 mg PO HS 12/01/20 12/01/20 Unknown History hydrOXYzine HCL [Atarax] 1 tab PO Q8H PRN 12/01/20 12/01/20 Unknown History lamoTRIgine [LaMICtal] 200 mg PO HS 12/01/20 12/01/20 Unknown History oxyCODONE /ACETAMINOPHEN [Percocet 1 tab PO Q6HR PRN 12/01/20 12/01/20 Unknown History 5/325] Active Meds: Active Medications Acetaminophen (Acetaminophen 325 Mg Tab) 650 mg PO Q6H PRN PRN Reason: Pain, Mild (1-3) Last Admin: 12/03/20 21:31 Dose: 650 mg Documented by: Albuterol (Albuterol 2.5 Mg/3 Ml Nebu) 2.5 mg IH Q4HRT PRN PRN Reason: Shortness Of Breath Amlodipine Besylate (Amlodipine 10 Mg Tab) 10 mg PO DAILY [facility] Last Admin: 12/13/20 10:46 Dose: 10 mg Documented by: Arformoterol Tartrate (Arformoterol 15 Mcg/2 Ml Nebu) 15 mcg IH Q12HRT [facility] Last Admin: 12/13/20 10:07 Dose: 15 mcg Documented by: Aripiprazole (Aripiprazole 5 Mg Tab) 5 mg PO QDAY [facility] Last Admin: 12/13/20 10:44 Dose: 5 mg Documented by: Budesonide (Budesonide 0.5 Mg/2 Ml Nebu) 0.5 mg IH Q12HRT [facility] Last Admin: 12/13/20 10:05 Dose: 0.5 mg Documented by: Donepezil HCl (Donepezil 5 Mg Tab) 5 mg PO [facility] Last Admin: 12/12/20 21:24 Dose: 5 mg Documented by: Gabapentin (Gabapentin 300 Mg Cap) 300 mg PO BID [facility] Last Admin: 12/13/20 10:44 Dose: 300 mg Documented by: Haloperidol Lactate (Haloperidol Lactate 5 Mg/1 Ml Inj) 5 mg IM Q6H PRN PRN Reason: Agitation Last Admin: 12/06/20 01:49 Dose: 5 mg Documented by: Hydroxyzine Pamoate (Hydroxyzine Pamoate 25 Mg Cap) 25 mg PO BID PRN PRN Reason: Anxiety Lamotrigine (Lamotrigine 100 Mg Tab) 200 mg PO [facility] Last Admin: 12/12/20 21:23 Dose: 200 mg Documented by: Lorazepam (Lorazepam 2 Mg/Ml Vial) 2 mg IM Q6H PRN PRN Reason: Agitation Last Admin: 12/06/20 01:49 Dose: 2 mg Documented by: Losartan Potassium (Losartan 50 Mg Tab) 100 mg PO QDAY [facility] Last Admin: 12/13/20 10:47 Dose: 100 mg Documented by: Melatonin (Melatonin 5 Mg Tab) 5 mg PO QHS PRN PRN Reason: Sleep Last Admin: 12/12/20 21:24 Dose: 5 mg Documented by: Mirtazapine (Mirtazapine 15 Mg Tab) 15 mg PO QHS [facility] Last Admin: 12/12/20 21:24 Dose: 15 mg Documented by: Multivitamins (Multivitamins ,Therapeutic Tab) 1 each PO DAILY [facility] Last Admin: 12/13/20 10:46 Dose: 1 each Documented by: Ondansetron HCl (Ondansetron 4 Mg Odt Tab) 4 mg PO Q8H PRN PRN Reason: Nausea And Vomiting Last Admin: 12/05/20 07:36 Dose: 4 mg Documented by: Oxycodone/Acetaminophen (Oxycodone /Acetaminophen 5-325mg Tab) 1 tab PO Q6HR PRN PRN Reason: PAIN Last Admin: 12/13/20 02:09 Dose: 1 tab Documented by: Valproic Acid (Valproic Acid 250 Mg Cap) 500 mg PO QHS [facility] Last Admin: 12/12/20 21:23 Dose: 500 mg Documented by: Valproic Acid (Valproic Acid 250 Mg Cap) 250 mg PO 0800,1400 [facility] Last Admin: 12/13/20 10:45 Dose: 250 mg Documented by: Venlafaxine HCl (Venlafaxine Xr 75 Mg Cap) 150 mg PO QDAY [facility] Last Admin: 12/13/20 10:44 Dose: 150 mg Documented by: Results - Results Labs/Vitals: Laboratory Last Values WBC 6.4 K/mm3 (4.5-11.0) 12/02/20 23:25 RBC 4.09 M/mm3 (3.65-5.03) 12/02/20 23:25 Hgb 11.6 gm/dl (10.1-14.3) 12/02/20 23:25 Hct 35.5 % (30.3-42.9) 12/02/20 23:25 MCV 87 fl (79-97) 12/02/20 23:25 MCH 28 pg (28-32) 12/02/20 23:25 MCHC 33 % (30-34) 12/02/20 23:25 RDW 15.7 % (13.2-15.2) H 12/02/20 23:25 Plt Count 296 K/mm3 (140-440) 12/02/20 23:25 Lymph % (Auto) 22.4 % (13.4-35.0) 12/02/20 23:25 [place] % (Auto) 11.0 % (0.0-7.3) H 12/02/20 23:25 Eos % (Auto) 1.3 % (0.0-4.3) 12/02/20 23:25 Baso % (Auto) 0.3 % (0.0-1.8) 12/02/20 23:25 Lymph # (Auto) 1.4 K/mm3 (1.2-5.4) 12/02/20 23:25 [place] # (Auto) 0.7 K/mm3 (0.0-0.8) 12/02/20 23:25 Eos # (Auto) 0.1 K/mm3 (0.0-0.4) 12/02/20 23:25 Baso # (Auto) 0.0 K/mm3 (0.0-0.1) 12/02/20 23:25 Seg Neutrophils % 65.0 % (40.0-70.0) 12/02/20 23:25 Seg Neutrophils # 4.1 K/mm3 (1.8-7.7) 12/02/20 23:25 Sodium 135 mmol/L (137-145) L 12/02/20 23:25 Potassium 3.9 mmol/L (3.6-5.0) 12/02/20 23:25 Chloride 97.3 mmol/L (98-107) L 12/02/20 23:25 Carbon Dioxide 25 mmol/L (22-30) 12/02/20 23:25 Anion Gap 17 mmol/L 12/02/20 23:25 BUN 13 mg/dL (7-17) 12/02/20 23:25 Creatinine 0.8 mg/dL (0.6-1.2) 12/02/20 23:25 Estimated GFR > 60 ml/min 12/02/20 23:25 BUN/Creatinine Ratio 16 % 12/02/20 23:25 Glucose 105 mg/dL (65-100) H 12/02/20 23:25 POC Glucose 76 mg/dL (70-105) 12/13/20 08:53 Hemoglobin A1c 6.1 % (4-6) H 12/02/20 23:25 Calcium 9.8 mg/dL (8.4-10.2) 12/02/20 23:25 Total Bilirubin 0.20 mg/dL (0.1-1.2) 12/02/20 23:25 AST 19 units/L (5-40) 12/02/20 23:25 ALT 11 units/L (7-56) 12/02/20 23:25 Alkaline Phosphatase 76 units/L (35-129) 12/02/20 23:25 Total Protein 7.3 g/dL (6.3-8.2) 12/02/20 23:25 Albumin 3.9 g/dL (3.9-5) 12/02/20 23:25 Albumin/Globulin Ratio 1.1 % 12/02/20 23:25 Triglycerides 88 mg/dL (2-149) 12/02/20 23:25 Cholesterol 156 mg/dL (50-199) 12/02/20 23:25 LDL Cholesterol Direct 100 mg/dL (50-130) 12/02/20 23:25 HDL Cholesterol 51 mg/dL (40-59) 12/02/20 23:25 Cholesterol/HDL Ratio 3.05 % 12/02/20 23:25 TSH 1.460 mlU/mL (0.270-4.200) 12/02/20 23:25 Valproic Acid 70.9 ug/mL (50-100) 12/09/20 05:42 Last Vital Signs Temp 98.4 F 12/13/20 08:18 Pulse 81 12/13/20 10:47 Resp 18 12/13/20 10:05 BP 135/60 12/13/20 10:47 Pulse Ox 97 12/13/20 10:00
[2020-12-13] MEDS: ACETAMINOPHEN 325 MG TAB PO PRN (17:19)
[2020-12-13] MEDS ORDERED: SENNOSIDES/DOCUSATE SODIUM 8.6/50 MG TAB PO PRN (17:46)
[2020-12-13] MEDS: DONEPEZIL 5 MG TAB PO SCH (21:18)
[2020-12-13] MEDS: MIRTAZAPINE 15 MG TAB PO SCH (21:18)
[2020-12-13] MEDS: lamoTRIgine 100 MG TAB PO SCH (21:18)
--- NOTE | 2020-12-14 08:41 | Progress Note ---
Subjective Date of service: 12/14/20 Principal diagnosis: MDD Subjective Comment: Psych Nurse: pt spent the evening in activity room interacting with staff, bright affect, calm and cooperative, able to make needs known, denies si/hi, denies ah/vh, good appetite, medication compliant, percocet 5/325mg po given with bedtime medication for bilateral shoulder pain with effect, no distress noted, will continue to monitor for safety. Psych Progress Patient describes a good and stable mood, denies being depressed or excessively nervous. Patient eats and sleeps well. Patient denies panic attacks, recurrent nightmares or flashbacks. Patient denies symptoms suggestive of OCD or PTSD. Patient denies hallucinations, paranoia, thought interference and no features suggestive of hypomania or eloisa. Patiently completely denies suicidal or homicidal thoughts. Reason to continue inpatient psychiatric hospitalization: Pending long-term placement REVIEW OF SYSTEMS Constitutional: Negative for weight loss ENT: Negative for stridor Respiratory: Negative for cough or hemoptysis All other systems reviewed and are negative MENTAL STATUS EXAMINATION General Appearance and Behavior: Age appropriate, good hygiene, wearing appropriate clothes,, good eye contact Cooperation: Participating/engaged, but Guarded Psychomotor Behavior: Psychomotor normal Mood: "not too good" Affect and affective range: congruent with mood, tearfu; Thought Process:logical Thought Content: none Speech: Normal rate, volume and rhythm Intellectual Functioning: Average Suicidal Ideation: Denies Homicidal Ideation: Denies HI Impulse Control: Impaired Insight and Judgment: Limited insight and judgment Memory: Normal Attention: Normal Orientation: Alert, oriented. Assessment and Plan (1) MDD (major depressive disorder) Current Visit: Yes Status: Acute F32.9 Treatment Plan Patient admitted for inpatient psychiatric evaluation, medication adjustment and close monitoring The patient's behavior, mood, sleep and appetite will be closely monitored. Patient enrolled in individual and group therapeutic sessions and encouraged to attend. Patient provided with a safe and structured environment. Patient's physical health needs will be addressed by the Hospitalist. Hospitalist Consulted Labs including CBC, CMP, Lipid profile and Hemoglobin A1C levels ordered for baseline reference Valproic level 70.9 Social Assessment will be completed and the Bone Tender will work with patient and family to ensure a suitable and safe disposition Medication adjustment will be made as clinically indicated Continue current medical Usual Wellness Hindu/Preservation: - Start Trazodone 50 mg po QHS & 50 mg po QHS PRN between 10 PM & 2 AM for insomnia - Start Melatonin 5 mg po QHS to promote circadian rhythm - Start [place]-3 for brain health, reduce impulsivity, and as adjunctive treatment for mood disorder, continue upon discharge given overall benefits. - Start B1 prophylaxis with 200 mg po for 5 days The patient agreed on the treatment plan, understood the risk, benefit, alternative treatment, potential consequence of no treatment, and gave informed consent. Estimated days: 1 Post hospital care: primary care provider, psychiatric provider . Assessment and Plan - Psychiatric problem (1) MDD (major depressive disorder) Current Visit: Yes Status: Acute F32.9 Treatment Plan Psychotherapy support, Patient switched to Remeron to improve sleep, Patient admitted for inpatient psychiatric evaluation, medication adjustment and close monitoring The patient's behavior, mood, sleep and appetite will be closely monitored. Patient enrolled in individual and group therapeutic sessions and encouraged to attend. Patient provided with a safe and structured environment. Patient's physical health needs will be addressed by the Hospitalist. Hospitalist Consulted Labs including CBC, CMP, Lipid profile and Hemoglobin A1C levels ordered for baseline reference Social Assessment will be completed and the Bone Tender will work with patient and family to ensure a suitable and safe disposition Medication adjustment will be made as clinically indicated Usual Wellness Hindu/Preservation: - Start Trazodone 50 mg po QHS & 50 mg po QHS PRN between 10 PM & 2 AM for insomnia - Start Melatonin 5 mg po QHS to promote circadian rhythm - Start [place]-3 for brain health, reduce impulsivity, and as adjunctive treatment for mood disorder, continue upon discharge given overall benefits. - Start B1 prophylaxis with 200 mg po for 5 days The patient agreed on the treatment plan, understood the risk, benefit, alternative treatment, potential consequence of no treatment, and gave informed consent. Initial Certification Inpatient psych services: I certify that the inpatient psychiatric services are required for treatment that could reasonably be expected to improve the patient's condition. Estimated days: 3 Post hospital care: primary care provider, psychiatric provider Assessment and Plan - Patient Problems (1) MDD (major depressive disorder) Current Visit: Yes Status: Acute Medications and Allergies Allergies Allergy/AdvReac Type Severity Reaction Status Date / Time codeine Allergy Unknown Verified 12/01/20 22:03 morphine Allergy Unknown Verified 12/01/20 22:06 NSAIDS (Non-Steroidal Allergy Unknown Verified 12/01/20 22:06 Anti-Inflamma Home Medications Medication Instructions Recorded Confirmed Last Taken Type ARIPiprazole [Abilify] 20 mg PO HS 12/01/20 12/01/20 Unknown History Albuterol Sulfate [Proventil Hfa] 90 mcg IH Q6H 12/01/20 12/01/20 Unknown History Benztropine [Cogentin] 2 mg PO BID 12/01/20 12/01/20 Unknown History Budesonide-Formoterol 160-4.5 2 puff INHALATION BID 12/01/20 12/01/20 Unknown History Citalopram [Celexa] 20 mg PO HS 12/01/20 12/01/20 Unknown History Fluticasone/Umeclidin/Vilanter 1 puff INHALATION DAILY 12/01/20 12/01/20 Unknown History Gabapentin 300 mg PO BID 12/01/20 12/01/20 Unknown History Levalbuterol HCl [Xopenex] 1 ampul TID 12/01/20 12/01/20 Unknown History Losartan-Hctz 100-25 mg Tab 1 tab PO DAILY 12/01/20 12/01/20 Unknown History Mirabegron [Myrbetriq] 50 mg PO QDAY 12/01/20 12/01/20 Unknown History Multivitamin Tab [Multiple Vitamin 1 tab PO DAILY 12/01/20 12/01/20 Unknown History TAB (Theragran)] amLODIPine [Norvasc] 10 mg PO DAILY 12/01/20 12/01/20 Unknown History donepeziL [Aricept] 5 mg PO HS 12/01/20 12/01/20 Unknown History hydrOXYzine HCL [Atarax] 1 tab PO Q8H PRN 12/01/20 12/01/20 Unknown History lamoTRIgine [LaMICtal] 200 mg PO HS 12/01/20 12/01/20 Unknown History oxyCODONE /ACETAMINOPHEN [Percocet 1 tab PO Q6HR PRN 12/01/20 12/01/20 Unknown History 5/325] Active Meds: Active Medications Acetaminophen (Acetaminophen 325 Mg Tab) 650 mg PO Q6H PRN PRN Reason: Pain, Mild (1-3) Last Admin: 12/13/20 17:19 Dose: 650 mg Documented by: Albuterol (Albuterol 2.5 Mg/3 Ml Nebu) 2.5 mg IH Q4HRT PRN PRN Reason: Shortness Of Breath Amlodipine Besylate (Amlodipine 10 Mg Tab) 10 mg PO DAILY [facility] Last Admin: 12/13/20 10:46 Dose: 10 mg Documented by: Arformoterol Tartrate (Arformoterol 15 Mcg/2 Ml Nebu) 15 mcg IH Q12HRT [facility] Last Admin: 12/13/20 20:50 Dose: Not Given Documented by: Aripiprazole (Aripiprazole 5 Mg Tab) 5 mg PO QDAY [facility] Last Admin: 12/13/20 10:44 Dose: 5 mg Documented by: Budesonide (Budesonide 0.5 Mg/2 Ml Nebu) 0.5 mg IH Q12HRT [facility] Last Admin: 12/13/20 20:50 Dose: Not Given Documented by: Donepezil HCl (Donepezil 5 Mg Tab) 5 mg PO [facility] Last Admin: 12/13/20 21:18 Dose: 5 mg Documented by: Gabapentin (Gabapentin 300 Mg Cap) 300 mg PO BID [facility] Last Admin: 12/13/20 21:18 Dose: 300 mg Documented by: Haloperidol Lactate (Haloperidol Lactate 5 Mg/1 Ml Inj) 5 mg IM Q6H PRN PRN Reason: Agitation Last Admin: 12/06/20 01:49 Dose: 5 mg Documented by: Hydroxyzine Pamoate (Hydroxyzine Pamoate 25 Mg Cap) 25 mg PO BID PRN PRN Reason: Anxiety Lamotrigine (Lamotrigine 100 Mg Tab) 200 mg PO [facility] Last Admin: 12/13/20 21:18 Dose: 200 mg Documented by: Lorazepam (Lorazepam 2 Mg/Ml Vial) 2 mg IM Q6H PRN PRN Reason: Agitation Last Admin: 12/06/20 01:49 Dose: 2 mg Documented by: Losartan Potassium (Losartan 50 Mg Tab) 100 mg PO QDAY [facility] Last Admin: 12/13/20 10:47 Dose: 100 mg Documented by: Melatonin (Melatonin 5 Mg Tab) 5 mg PO QHS PRN PRN Reason: Sleep Last Admin: 12/12/20 21:24 Dose: 5 mg Documented by: Mirtazapine (Mirtazapine 15 Mg Tab) 15 mg PO QHS [facility] Last Admin: 12/13/20 21:18 Dose: 15 mg Documented by: Multivitamins (Multivitamins ,Therapeutic Tab) 1 each PO DAILY [facility] Last Admin: 12/13/20 10:46 Dose: 1 each Documented by: Ondansetron HCl (Ondansetron 4 Mg Odt Tab) 4 mg PO Q8H PRN PRN Reason: Nausea And Vomiting Last Admin: 12/05/20 07:36 Dose: 4 mg Documented by: Oxycodone/Acetaminophen (Oxycodone /Acetaminophen 5-325mg Tab) 1 tab PO Q6HR PRN PRN Reason: PAIN Last Admin: 12/13/20 21:18 Dose: 1 tab Documented by: Senna/Docusate Sodium (Sennosides/Docusate Sodium 8.6/50 Mg Tab) 2 tab PO Q12H PRN PRN Reason: Laxative Effect Valproic Acid (Valproic Acid 250 Mg Cap) 500 mg PO QHS [facility] Last Admin: 12/13/20 21:18 Dose: 500 mg Documented by: Valproic Acid (Valproic Acid 250 Mg Cap) 250 mg PO 0800,1400 [facility] Last Admin: 12/13/20 15:33 Dose: 250 mg Documented by: Venlafaxine HCl (Venlafaxine Xr 75 Mg Cap) 150 mg PO QDAY [facility] Last Admin: 12/13/20 10:44 Dose: 150 mg Documented by: Results - Results Labs/Vitals: Laboratory Last Values WBC 6.4 K/mm3 (4.5-11.0) 12/02/20 23:25 RBC 4.09 M/mm3 (3.65-5.03) 12/02/20 23:25 Hgb 11.6 gm/dl (10.1-14.3) 12/02/20 23:25 Hct 35.5 % (30.3-42.9) 12/02/20 23:25 MCV 87 fl (79-97) 12/02/20 23:25 MCH 28 pg (28-32) 12/02/20 23:25 MCHC 33 % (30-34) 12/02/20 23:25 RDW 15.7 % (13.2-15.2) H 12/02/20 23:25 Plt Count 296 K/mm3 (140-440) 12/02/20 23:25 Lymph % (Auto) 22.4 % (13.4-35.0) 12/02/20 23:25 [place] % (Auto) 11.0 % (0.0-7.3) H 12/02/20 23:25 Eos % (Auto) 1.3 % (0.0-4.3) 12/02/20 23:25 Baso % (Auto) 0.3 % (0.0-1.8) 12/02/20 23:25 Lymph # (Auto) 1.4 K/mm3 (1.2-5.4) 12/02/20 23:25 [place] # (Auto) 0.7 K/mm3 (0.0-0.8) 12/02/20 23:25 Eos # (Auto) 0.1 K/mm3 (0.0-0.4) 12/02/20 23:25 Baso # (Auto) 0.0 K/mm3 (0.0-0.1) 12/02/20 23:25 Seg Neutrophils % 65.0 % (40.0-70.0) 12/02/20 23:25 Seg Neutrophils # 4.1 K/mm3 (1.8-7.7) 12/02/20 23:25 Sodium 135 mmol/L (137-145) L 12/02/20 23:25 Potassium 3.9 mmol/L (3.6-5.0) 12/02/20 23:25 Chloride 97.3 mmol/L (98-107) L 12/02/20 23:25 Carbon Dioxide 25 mmol/L (22-30) 12/02/20 23:25 Anion Gap 17 mmol/L 12/02/20 23:25 BUN 13 mg/dL (7-17) 12/02/20 23:25 Creatinine 0.8 mg/dL (0.6-1.2) 12/02/20 23:25 Estimated GFR > 60 ml/min 12/02/20 23:25 BUN/Creatinine Ratio 16 % 12/02/20 23:25 Glucose 105 mg/dL (65-100) H 12/02/20 23:25 POC Glucose 76 mg/dL (70-105) 12/13/20 08:53 Hemoglobin A1c 6.1 % (4-6) H 12/02/20 23:25 Calcium 9.8 mg/dL (8.4-10.2) 12/02/20 23:25 Total Bilirubin 0.20 mg/dL (0.1-1.2) 12/02/20 23:25 AST 19 units/L (5-40) 12/02/20 23:25 ALT 11 units/L (7-56) 12/02/20 23:25 Alkaline Phosphatase 76 units/L (35-129) 12/02/20 23:25 Total Protein 7.3 g/dL (6.3-8.2) 12/02/20 23:25 Albumin 3.9 g/dL (3.9-5) 12/02/20 23:25 Albumin/Globulin Ratio 1.1 % 12/02/20 23:25 Triglycerides 88 mg/dL (2-149) 12/02/20 23:25 Cholesterol 156 mg/dL (50-199) 12/02/20 23:25 LDL Cholesterol Direct 100 mg/dL (50-130) 12/02/20 23:25 HDL Cholesterol 51 mg/dL (40-59) 12/02/20 23:25 Cholesterol/HDL Ratio 3.05 % 12/02/20 23:25 TSH 1.460 mlU/mL (0.270-4.200) 12/02/20 23:25 Valproic Acid 70.9 ug/mL (50-100) 12/09/20 05:42 Last Vital Signs Temp 97.7 F 12/14/20 07:14 Pulse 66 12/14/20 07:14 Resp 14 12/14/20 07:14 BP 127/50 12/14/20 07:14 Pulse Ox 95 12/14/20 07:14
[2020-12-14] MEDS: ARFORMOTEROL 15 MCG/2 ML NEBU IH SCH (08:52)
[2020-12-14] MEDS: BUDESONIDE 0.5 MG/2 ML NEBU IH SCH (08:52)
[2020-12-14] MEDS: ARIPiprazole 5 MG TAB PO SCH (09:17)
[2020-12-14] MEDS: GABAPENTIN 300 MG CAP PO SCH ×2 (09:17→21:26)
[2020-12-14] MEDS: VALPROIC ACID 250 MG CAP PO SCH ×3 (09:17→21:26)
[2020-12-14] MEDS: MULTIVITAMINS ,THERAPEUTIC TAB PO SCH (09:17)
[2020-12-14] MEDS: VENLAFAXINE XR 75 MG CAP PO SCH (09:17)
[2020-12-14] MEDS: amLODIPine 10 MG TAB PO SCH (09:22)
[2020-12-14] MEDS: LOSARTAN 50 MG TAB PO SCH (09:22)
[2020-12-14] MEDS: MIRTAZAPINE 15 MG TAB PO SCH (21:26)
[2020-12-14] MEDS: lamoTRIgine 100 MG TAB PO SCH (21:27)
[2020-12-14] MEDS: DONEPEZIL 5 MG TAB PO SCH (21:27)
[2020-12-15] MEDS: BUDESONIDE 0.5 MG/2 ML NEBU IH SCH ×2 (03:55→08:54)
[2020-12-15] MEDS: ARFORMOTEROL 15 MCG/2 ML NEBU IH SCH ×2 (03:55→08:54)
--- NOTE | 2020-12-15 08:58 | Progress Note ---
Subjective Date of service: 12/15/20 Principal diagnosis: MDD Subjective Comment: Psych Nurse: Pt received in the activity room sitting calm and quiet. "I'm still here," she verbalized upon seen the marine underwriter. O2 flowing at 2 liters via [place] Denies pain, SI or HI. No AV/H observed or reported. Will continue to monitor. Psych Progress Patient describes a good and stable mood, denies being depressed or excessively nervous. Patient eats and sleeps well. Patient denies panic attacks, recurrent nightmares or flashbacks. Patient denies symptoms suggestive of OCD or PTSD. Patient denies hallucinations, paranoia, thought interference and no features suggestive of hypomania or eloisa. Patiently completely denies suicidal or homicidal thoughts. Reason to continue inpatient psychiatric hospitalization: Pending [facility] placement REVIEW OF SYSTEMS Constitutional: Negative for weight loss ENT: Negative for stridor Respiratory: Negative for cough or hemoptysis All other systems reviewed and are negative MENTAL STATUS EXAMINATION General Appearance and Behavior: Age appropriate, good hygiene, wearing appropriate clothes,, good eye contact Cooperation: Participating/engaged, but Guarded Psychomotor Behavior: Psychomotor normal Mood: "not too good" Affect and affective range: congruent with mood, tearfu; Thought Process:logical Thought Content: none Speech: Normal rate, volume and rhythm Intellectual Functioning: Average Suicidal Ideation: Denies Homicidal Ideation: Denies HI Impulse Control: Impaired Insight and Judgment: Limited insight and judgment Memory: Normal Attention: Normal Orientation: Alert, oriented. Assessment and Plan (1) MDD (major depressive disorder) Current Visit: Yes Status: Acute F32.9 Treatment Plan Patient admitted for inpatient psychiatric evaluation, medication adjustment and close monitoring The patient's behavior, mood, sleep and appetite will be closely monitored. Patient enrolled in individual and group therapeutic sessions and encouraged to attend. Patient provided with a safe and structured environment. Patient's physical health needs will be addressed by the Hospitalist. Hospitalist Consulted Labs including CBC, CMP, Lipid profile and Hemoglobin A1C levels ordered for baseline reference Valproic level 70.9 Social Assessment will be completed and the Kiln Burner Helper will work with patient and family to ensure a suitable and safe disposition Medication adjustment will be made as clinically indicated Continue current medical Usual Wellness Hoahaoism/Preservation: - Start Trazodone 50 mg po QHS & 50 mg po QHS PRN between 10 PM & 2 AM for insomnia - Start Melatonin 5 mg po QHS to promote circadian rhythm - Start [place]-3 for brain health, reduce impulsivity, and as adjunctive treatment for mood disorder, continue upon discharge given overall benefits. - Start B1 prophylaxis with 200 mg po for 5 days The patient agreed on the treatment plan, understood the risk, benefit, alternative treatment, potential consequence of no treatment, and gave informed consent. Estimated days: 1 Post hospital care: primary care provider, psychiatric provider . Assessment and Plan - Psychiatric problem (1) MDD (major depressive disorder) Current Visit: Yes Status: Acute F32.9 Treatment Plan Psychotherapy support, Patient switched to Remeron to improve sleep, Patient admitted for inpatient psychiatric evaluation, medication adjustment and close monitoring The patient's behavior, mood, sleep and appetite will be closely monitored. Patient enrolled in individual and group therapeutic sessions and encouraged to attend. Patient provided with a safe and structured environment. Patient's physical health needs will be addressed by the Hospitalist. Hospitalist Consulted Labs including CBC, CMP, Lipid profile and Hemoglobin A1C levels ordered for baseline reference Social Assessment will be completed and the Kiln Burner Helper will work with patient and family to ensure a suitable and safe disposition Medication adjustment will be made as clinically indicated Usual Wellness Hoahaoism/Preservation: - Start Trazodone 50 mg po QHS & 50 mg po QHS PRN between 10 PM & 2 AM for insomnia - Start Melatonin 5 mg po QHS to promote circadian rhythm - Start [place]-3 for brain health, reduce impulsivity, and as adjunctive treatment for mood disorder, continue upon discharge given overall benefits. - Start B1 prophylaxis with 200 mg po for 5 days The patient agreed on the treatment plan, understood the risk, benefit, alternative treatment, potential consequence of no treatment, and gave informed consent. Initial Certification Inpatient psych services: I certify that the inpatient psychiatric services are required for treatment th at could reasonably be expected to improve the patient's condition. Estimated days: 3 Post hospital care: primary care provider, psychiatric provider Assessment and Plan - Patient Problems (1) MDD (major depressive disorder) Current Visit: Yes Status: Acute Medications and Allergies Allergies Allergy/AdvReac Type Severity Reaction Status Date / Time codeine Allergy Unknown Verified 12/01/20 22:03 morphine Allergy Unknown Verified 12/01/20 22:06 NSAIDS (Non-Steroidal Allergy Unknown Verified 12/01/20 22:06 Anti-Inflamma Home Medications Medication Instructions Recorded Confirmed Last Taken Type ARIPiprazole [Abilify] 20 mg PO HS 12/01/20 12/01/20 Unknown History Albuterol Sulfate [Proventil Hfa] 90 mcg IH Q6H 12/01/20 12/01/20 Unknown History Benztropine [Cogentin] 2 mg PO BID 12/01/20 12/01/20 Unknown History Budesonide-Formoterol 160-4.5 2 puff INHALATION BID 12/01/20 12/01/20 Unknown History Citalopram [Celexa] 20 mg PO HS 12/01/20 12/01/20 Unknown History Fluticasone/Umeclidin/Vilanter 1 puff INHALATION DAILY 12/01/20 12/01/20 Unknown History Gabapentin 300 mg PO BID 12/01/20 12/01/20 Unknown History Levalbuterol HCl [Xopenex] 1 ampul TID 12/01/20 12/01/20 Unknown History Losartan-Hctz 100-25 mg Tab 1 tab PO DAILY 12/01/20 12/01/20 Unknown History Mirabegron [Myrbetriq] 50 mg PO QDAY 12/01/20 12/01/20 Unknown History Multivitamin Tab [Multiple Vitamin 1 tab PO DAILY 12/01/20 12/01/20 Unknown History TAB (Theragran)] amLODIPine [Norvasc] 10 mg PO DAILY 12/01/20 12/01/20 Unknown History donepeziL [Aricept] 5 mg PO HS 12/01/20 12/01/20 Unknown History hydrOXYzine HCL [Atarax] 1 tab PO Q8H PRN 12/01/20 12/01/20 Unknown History lamoTRIgine [LaMICtal] 200 mg PO HS 12/01/20 12/01/20 Unknown History oxyCODONE /ACETAMINOPHEN [Percocet 1 tab PO Q6HR PRN 12/01/20 12/01/20 Unknown History 5/325] Active Meds: Active Medications Acetaminophen (Acetaminophen 325 Mg Tab) 650 mg PO Q6H PRN PRN Reason: Pain, Mild (1-3) Last Admin: 12/13/20 17:19 Dose: 650 mg Documented by: Albuterol (Albuterol 2.5 Mg/3 Ml Nebu) 2.5 mg IH Q4HRT PRN PRN Reason: Shortness Of Breath Amlodipine Besylate (Amlodipine 10 Mg Tab) 10 mg PO DAILY [facility] Last Admin: 12/14/20 09:22 Dose: 10 mg Documented by: Arformoterol Tartrate (Arformoterol 15 Mcg/2 Ml Nebu) 15 mcg IH Q12HRT [facility] Last Admin: 12/15/20 08:54 Dose: 15 mcg Documented by: Aripiprazole (Aripiprazole 5 Mg Tab) 5 mg PO QDAY [facility] Last Admin: 12/14/20 09:17 Dose: 5 mg Documented by: Budesonide (Budesonide 0.5 Mg/2 Ml Nebu) 0.5 mg IH Q12HRT [facility] Last Admin: 12/15/20 08:54 Dose: 0.5 mg Documented by: Donepezil HCl (Donepezil 5 Mg Tab) 5 mg PO [facility] Last Admin: 12/14/20 21:27 Dose: 5 mg Documented by: Gabapentin (Gabapentin 300 Mg Cap) 300 mg PO BID [facility] Last Admin: 12/14/20 21:26 Dose: 300 mg Documented by: Haloperidol Lactate (Haloperidol Lactate 5 Mg/1 Ml Inj) 5 mg IM Q6H PRN PRN Reason: Agitation Last Admin: 12/06/20 01:49 Dose: 5 mg Documented by: Hydroxyzine Pamoate (Hydroxyzine Pamoate 25 Mg Cap) 25 mg PO BID PRN PRN Reason: Anxiety Lamotrigine (Lamotrigine 100 Mg Tab) 200 mg PO [facility] Last Admin: 12/14/20 21:27 Dose: 200 mg Documented by: Lorazepam (Lorazepam 2 Mg/Ml Vial) 2 mg IM Q6H PRN PRN Reason: Agitation Last Admin: 12/06/20 01:49 Dose: 2 mg Documented by: Losartan Potassium (Losartan 50 Mg Tab) 100 mg PO QDAY [facility] Last Admin: 12/14/20 09:22 Dose: 100 mg Documented by: Melatonin (Melatonin 5 Mg Tab) 5 mg PO QHS PRN PRN Reason: Sleep Last Admin: 12/12/20 21:24 Dose: 5 mg Documented by: Mirtazapine (Mirtazapine 15 Mg Tab) 15 mg PO QHS [facility] Last Admin: 12/14/20 21:26 Dose: 15 mg Documented by: Multivitamins (Multivitamins ,Therapeutic Tab) 1 each PO DAILY [facility] Last Admin: 12/14/20 09:17 Dose: 1 each Documented by: Ondansetron HCl (Ondansetron 4 Mg Odt Tab) 4 mg PO Q8H PRN PRN Reason: Nausea And Vomiting Last Admin: 12/05/20 07:36 Dose: 4 mg Documented by: Oxycodone/Acetaminophen (Oxycodone /Acetaminophen 5-325mg Tab) 1 tab PO Q6HR PRN PRN Reason: PAIN Last Admin: 12/13/20 21:18 Dose: 1 tab Documented by: Senna/Docusate Sodium (Sennosides/Docusate Sodium 8.6/50 Mg Tab) 2 tab PO Q12H PRN PRN Reason: Laxative Effect Valproic Acid (Valproic Acid 250 Mg Cap) 500 mg PO QHS [facility] Last Admin: 12/14/20 21:26 Dose: 500 mg Documented by: Valproic Acid (Valproic Acid 250 Mg Cap) 250 mg PO 0800,1400 [facility] Last Admin: 12/14/20 14:27 Dose: 250 mg Documented by: Venlafaxine HCl (Venlafaxine Xr 75 Mg Cap) 150 mg PO QDAY [facility] Last Admin: 12/14/20 09:17 Dose: 150 mg Documented by: Results - Results Labs/Vitals: Laboratory Last Values WBC 6.4 K/mm3 (4.5-11.0) 12/02/20 23:25 RBC 4.09 M/mm3 (3.65-5.03) 12/02/20 23:25 Hgb 11.6 gm/dl (10.1-14.3) 12/02/20 23:25 Hct 35.5 % (30.3-42.9) 12/02/20 23:25 MCV 87 fl (79-97) 12/02/20 23:25 MCH 28 pg (28-32) 12/02/20 23:25 MCHC 33 % (30-34) 12/02/20 23:25 RDW 15.7 % (13.2-15.2) H 12/02/20 23:25 Plt Count 296 K/mm3 (140-440) 12/02/20 23:25 Lymph % (Auto) 22.4 % (13.4-35.0) 12/02/20 23:25 [place] % (Auto) 11.0 % (0.0-7.3) H 12/02/20 23:25 Eos % (Auto) 1.3 % (0.0-4.3) 12/02/20 23:25 Baso % (Auto) 0.3 % (0.0-1.8) 12/02/20 23:25 Lymph # (Auto) 1.4 K/mm3 (1.2-5.4) 12/02/20 23:25 [place] # (Auto) 0.7 K/mm3 (0.0-0.8) 12/02/20 23:25 Eos # (Auto) 0.1 K/mm3 (0.0-0.4) 12/02/20 23:25 Baso # (Auto) 0.0 K/mm3 (0.0-0.1) 12/02/20 23:25 Seg Neutrophils % 65.0 % (40.0-70.0) 12/02/20 23:25 Seg Neutrophils # 4.1 K/mm3 (1.8-7.7) 12/02/20 23:25 Sodium 135 mmol/L (137-145) L 12/02/20 23:25 Potassium 3.9 mmol/L (3.6-5.0) 12/02/20 23:25 Chloride 97.3 mmol/L (98-107) L 12/02/20 23:25 Carbon Dioxide 25 mmol/L (22-30) 12/02/20 23:25 Anion Gap 17 mmol/L 12/02/20 23:25 BUN 13 mg/dL (7-17) 12/02/20 23:25 Creatinine 0.8 mg/dL (0.6-1.2) 12/02/20 23:25 Estimated GFR > 60 ml/min 12/02/20 23:25 BUN/Creatinine Ratio 16 % 12/02/20 23:25 Glucose 105 mg/dL (65-100) H 12/02/20 23:25 POC Glucose 80 mg/dL (70-105) 12/14/20 06:21 Hemoglobin A1c 6.1 % (4-6) H 12/02/20 23:25 Calcium 9.8 mg/dL (8.4-10.2) 12/02/20 23:25 Total Bilirubin 0.20 mg/dL (0.1-1.2) 12/02/20 23:25 AST 19 units/L (5-40) 12/02/20 23:25 ALT 11 units/L (7-56) 12/02/20 23:25 Alkaline Phosphatase 76 units/L (35-129) 12/02/20 23:25 Total Protein 7.3 g/dL (6.3-8.2) 12/02/20 23:25 Albumin 3.9 g/dL (3.9-5) 12/02/20 23:25 Albumin/Globulin Ratio 1.1 % 12/02/20 23:25 Triglycerides 88 mg/dL (2-149) 12/02/20 23:25 Cholesterol 156 mg/dL (50-199) 12/02/20 23:25 LDL Cholesterol Direct 100 mg/dL (50-130) 12/02/20 23:25 HDL Cholesterol 51 mg/dL (40-59) 12/02/20 23:25 Cholesterol/HDL Ratio 3.05 % 12/02/20 23:25 TSH 1.460 mlU/mL (0.270-4.200) 12/02/20 23:25 Valproic Acid 70.9 ug/mL (50-100) 12/09/20 05:42 Last Vital Signs Temp 98.0 F 12/15/20 08:35 Pulse 86 12/15/20 08:35 Resp 19 12/15/20 08:35 BP 141/63 12/15/20 08:35 Pulse Ox 92 12/15/20 08:35
[2020-12-15] MEDS: LOSARTAN 50 MG TAB PO SCH (09:38)
[2020-12-15] MEDS: VALPROIC ACID 250 MG CAP PO SCH ×3 (09:38→21:57)
[2020-12-15] MEDS: ARIPiprazole 5 MG TAB PO SCH (09:38)
[2020-12-15] MEDS: MULTIVITAMINS ,THERAPEUTIC TAB PO SCH (09:38)
[2020-12-15] MEDS: amLODIPine 10 MG TAB PO SCH (09:39)
[2020-12-15] MEDS: GABAPENTIN 300 MG CAP PO SCH ×2 (09:43→21:58)
[2020-12-15] MEDS: VENLAFAXINE XR 75 MG CAP PO SCH (09:46)
[2020-12-15] MEDS: ACETAMINOPHEN 325 MG TAB PO PRN (11:05)
[2020-12-15] MEDS: MIRTAZAPINE 15 MG TAB PO SCH (21:58)
[2020-12-15] MEDS: lamoTRIgine 100 MG TAB PO SCH (21:58)
[2020-12-15] MEDS: DONEPEZIL 5 MG TAB PO SCH (21:58)
--- NOTE | 2020-12-16 07:50 | Progress Note ---
Subjective Date of service: 12/16/20 Principal diagnosis: MDD Subjective Comment: Psych Nurse: Pt received in the day room sitting quietly with O2 flowing at 2 liters via [place] A&OX4. Denies pain, SI or HI. States she is tired of being here and just wants to go to her family. Assured we are working on her safe discharge and she verbalized understanding and cooperative. No acute distress observed. Will continue to monitor. Psych Progress Patient seen this AM, endorses not feeling so happy this AM, thoughts of not being able to go back to her home where family resides bothers her alot and she is not happy of decision to send her somewhere else otherwise she is fine, No SI, HI or AVH. Eats and sleeps well Reason to continue inpatient psychiatric hospitalization: Pending group home placement REVIEW OF SYSTEMS Constitutional: Negative for weight loss ENT: Negative for stridor Respiratory: Negative for cough or hemoptysis All other systems reviewed and are negative MENTAL STATUS EXAMINATION General Appearance and Behavior: Age appropriate, good hygiene, wearing appropriate clothes,, good eye contact Cooperation: Participating/engaged, but Guarded Psychomotor Behavior: Psychomotor normal Mood: "not too good" Affect and affective range: congruent with mood, tearfu; Thought Process:logical Thought Content: none Speech: Normal rate, volume and rhythm Intellectual Functioning: Average Suicidal Ideation: Denies Homicidal Ideation: Denies HI Impulse Control: Impaired Insight and Judgment: Limited insight and judgment Memory: Normal Attention: Normal Orientation: Alert, oriented. Assessment and Plan (1) MDD (major depressive disorder) Current Visit: Yes Status: Acute F32.9 Treatment Plan Patient admitted for inpatient psychiatric evaluation, medication adjustment and close monitoring The patient's behavior, mood, sleep and appetite will be closely monitored. Patient enrolled in individual and group therapeutic sessions and encouraged to attend. Patient provided with a safe and structured environment. Patient's physical health needs will be addressed by the Hospitalist. Maria day Consulted Labs including CBC, CMP, Lipid profile and Hemoglobin A1C levels ordered for baseline reference Valproic level 70.9 Social Assessment will be completed and the Fire Services Plumber will work with patient and family to ensure a suitable and safe disposition Medication adjustment will be made as clinically indicated Continue current medical Usual Wellness Congregation/Preservation: - Start Trazodone 50 mg po QHS & 50 mg po QHS PRN between 10 PM & 2 AM for insomnia - Start Melatonin 5 mg po QHS to promote circadian rhythm - Start [place]-3 for brain health, reduce impulsivity, and as adjunctive treatment for mood disorder, continue upon discharge given overall benefits. - Start B1 prophylaxis with 200 mg po for 5 days The patient agreed on the treatment plan, understood the risk, benefit, alternative treatment, potential consequence of no treatment, and gave informed consent. Estimated days: 1 Post hospital care: primary care provider, psychiatric provider . Assessment and Plan - Psychiatric problem (1) MDD (major depressive disorder) Current Visit: Yes Status: Acute F32.9 Treatment Plan Psychotherapy support, Patient switched to Remeron to improve sleep, Patient admitted for inpatient psychiatric evaluation, medication adjustment and close monitoring The patient's behavior, mood, sleep and appetite will be closely monitored. Patient enrolled in individual and group therapeutic sessions and encouraged to attend. Patient provided with a safe and structured environment. Patient's physical health needs will be addressed by the Hospitalist. Hospitalist Consulted Labs including CBC, CMP, Lipid profile and Hemoglobin A1C levels ordered for baseline reference Social Assessment will be completed and the Fire Services Plumber will work with patient and family to ensure a suitable and safe disposition Medication adjustment will be made as clinically indicated Usual Wellness Congregation/Preservation: - Start Trazodone 50 mg po QHS & 50 mg po QHS PRN between 10 PM & 2 AM for insomnia - Start Melatonin 5 mg po QHS to promote circadian rhythm - Start [place]-3 for brain health, reduce impulsivity, and as adjunctive treatment for mood disorder, continue upon discharge given overall benefits. - Start B1 prophylaxis with 200 mg po for 5 days The patient agreed on the treatment plan, understood the risk, benefit, alternative treatment, potential consequence of no treatment, and gave informed consent. Initial Certification Inpatient psych services: I certify that the inpatient psychiatric services are required for treatment that could reasonably be expected to improve the patient's condition. Estimated days: 3 Post hospital care: primary care provider, psychiatric provider Assessment and Plan - Patient Problems (1) MDD (major depressive disorder) Current Visit: Yes Status: Acute Medications and Allergies Allergies Allergy/AdvReac Type Severity Reaction Status Date / Time codeine Allergy Unknown Verified 12/01/20 22:03 morphine Allergy Unknown Verified 12/01/20 22:06 NSAIDS (Non-Steroidal Allergy Unknown Verified 12/01/20 22:06 Anti-Inflamma Home Medications Medication Instructions Recorded Confirmed Last Taken Type ARIPiprazole [Abilify] 20 mg PO HS 12/01/20 12/01/20 Unknown History Albuterol Sulfate [Proventil Hfa] 90 mcg IH Q6H 12/01/20 12/01/20 Unknown History Benztropine [Cogentin] 2 mg PO BID 12/01/20 12/01/20 Unknown History Budesonide-Formoterol 160-4.5 2 puff INHALATION BID 12/01/20 12/01/20 Unknown History Citalopram [Celexa] 20 mg PO HS 12/01/20 12/01/20 Unknown History Fluticasone/Umeclidin/Vilanter 1 puff INHALATION DAILY 12/01/20 12/01/20 Unknown History Gabapentin 300 mg PO BID 12/01/20 12/01/20 Unknown History Levalbuterol HCl [Xopenex] 1 ampul TID 12/01/20 12/01/20 Unknown History Losartan-Hctz 100-25 mg Tab 1 tab PO DAILY 12/01/20 12/01/20 Unknown History Mirabegron [Myrbetriq] 50 mg PO QDAY 12/01/20 12/01/20 Unknown History Multivitamin Tab [Multiple Vitamin 1 tab PO DAILY 12/01/20 12/01/20 Unknown History TAB (Theragran)] amLODIPine [Norvasc] 10 mg PO DAILY 12/01/20 12/01/20 Unknown History donepeziL [Aricept] 5 mg PO HS 12/01/20 12/01/20 Unknown History hydrOXYzine HCL [Atarax] 1 tab PO Q8H PRN 12/01/20 12/01/20 Unknown History lamoTRIgine [LaMICtal] 200 mg PO HS 12/01/20 12/01/20 Unknown History oxyCODONE /ACETAMINOPHEN [Percocet 1 tab PO Q6HR PRN 12/01/20 12/01/20 Unknown History 5/325] Active Meds: Active Medications Acetaminophen (Acetaminophen 325 Mg Tab) 650 mg PO Q6H PRN PRN Reason: Pain, Mild (1-3) Last Admin: 12/15/20 11:05 Dose: 650 mg Documented by: Albuterol (Albuterol 2.5 Mg/3 Ml Nebu) 2.5 mg IH Q4HRT PRN PRN Reason: Shortness Of Breath Amlodipine Besylate (Amlodipine 10 Mg Tab) 10 mg PO DAILY [facility] Last Admin: 12/15/20 09:39 Dose: 10 mg Documented by: Arformoterol Tartrate (Arformoterol 15 Mcg/2 Ml Nebu) 15 mcg IH Q12HRT [facility] Last Admin: 12/15/20 08:54 Dose: 15 mcg Documented by: Aripiprazole (Aripiprazole 5 Mg Tab) 5 mg PO QDAY [facility] Last Admin: 12/15/20 09:38 Dose: 5 mg Documented by: Budesonide (Budesonide 0.5 Mg/2 Ml Nebu) 0.5 mg IH Q12HRT [facility] Last Admin: 12/15/20 08:54 Dose: 0.5 mg Documented by: Donepezil HCl (Donepezil 5 Mg Tab) 5 mg PO [facility] Last Admin: 12/15/20 21:58 Dose: 5 mg Documented by: Gabapentin (Gabapentin 300 Mg Cap) 300 mg PO BID [facility] Last Admin: 12/15/20 21:58 Dose: 300 mg Documented by: Haloperidol Lactate (Haloperidol Lactate 5 Mg/1 Ml Inj) 5 mg IM Q6H PRN PRN Reason: Agitation Last Admin: 12/06/20 01:49 Dose: 5 mg Documented by: Hydroxyzine Pamoate (Hydroxyzine Pamoate 25 Mg Cap) 25 mg PO BID PRN PRN Reason: Anxiety Lamotrigine (Lamotrigine 100 Mg Tab) 200 mg PO [facility] Last Admin: 12/15/20 21:58 Dose: 200 mg Documented by: Lorazepam (Lorazepam 2 Mg/Ml Vial) 2 mg IM Q6H PRN PRN Reason: Agitation Last Admin: 12/06/20 01:49 Dose: 2 mg Documented by: Losartan Potassium (Losartan 50 Mg Tab) 100 mg PO QDAY [facility] Last Admin: 12/15/20 09:38 Dose: 100 mg Documented by: Melatonin (Melatonin 5 Mg Tab) 5 mg PO QHS PRN PRN Reason: Sleep Last Admin: 12/12/20 21:24 Dose: 5 mg Documented by: Mirtazapine (Mirtazapine 15 Mg Tab) 15 mg PO QHS [facility] Last Admin: 12/15/20 21:58 Dose: 15 mg Documented by: Multivitamins (Multivitamins ,Therapeutic Tab) 1 each PO DAILY [facility] Last Admin: 12/15/20 09:38 Dose: 1 each Documented by: Ondansetron HCl (Ondansetron 4 Mg Odt Tab) 4 mg PO Q8H PRN PRN Reason: Nausea And Vomiting Last Admin: 12/05/20 07:36 Dose: 4 mg Documented by: Oxycodone/Acetaminophen (Oxycodone /Acetaminophen 5-325mg Tab) 1 tab PO Q6HR PRN PRN Reason: PAIN Last Admin: 12/13/20 21:18 Dose: 1 tab Documented by: Senna/Docusate Sodium (Sennosides/Docusate Sodium 8.6/50 Mg Tab) 2 tab PO Q12H PRN PRN Reason: Laxative Effect Valproic Acid (Valproic Acid 250 Mg Cap) 500 mg PO QHS [facility] Last Admin: 12/15/20 21:57 Dose: 500 mg Documented by: Valproic Acid (Valproic Acid 250 Mg Cap) 250 mg PO 0800,1400 [facility] Last Admin: 12/15/20 15:00 Dose: 250 mg Documented by: Venlafaxine HCl (Venlafaxine Xr 75 Mg Cap) 150 mg PO QDAY [facility] Last Admin: 12/15/20 09:46 Dose: 150 mg Documented by: Results - Results Labs/Vitals: Laboratory Last Values WBC 6.4 K/mm3 (4.5-11.0) 12/02/20 23:25 RBC 4.09 M/mm3 (3.65-5.03) 12/02/20 23:25 Hgb 11.6 gm/dl (10.1-14.3) 12/02/20 23:25 Hct 35.5 % (30.3-42.9) 12/02/20 23:25 MCV 87 fl (79-97) 12/02/20 23:25 MCH 28 pg (28-32) 12/02/20 23:25 MCHC 33 % (30-34) 12/02/20 23:25 RDW 15.7 % (13.2-15.2) H 12/02/20 23:25 Plt Count 296 K/mm3 (140-440) 12/02/20 23:25 Lymph % (Auto) 22.4 % (13.4-35.0) 12/02/20 23:25 [place] % (Auto) 11.0 % (0.0-7.3) H 12/02/20 23:25 Eos % (Auto) 1.3 % (0.0-4.3) 12/02/20 23:25 Baso % (Auto) 0.3 % (0.0-1.8) 12/02/20 23:25 Lymph # (Auto) 1.4 K/mm3 (1.2-5.4) 12/02/20 23:25 [place] # (Auto) 0.7 K/mm3 (0.0-0.8) 12/02/20 23:25 Eos # (Auto) 0.1 K/mm3 (0.0-0.4) 12/02/20 23:25 Baso # (Auto) 0.0 K/mm3 (0.0-0.1) 12/02/20 23:25 Seg Neutrophils % 65.0 % (40.0-70.0) 12/02/20 23:25 Seg Neutrophils # 4.1 K/mm3 (1.8-7.7) 12/02/20 23:25 Sodium 135 mmol/L (137-145) L 12/02/20 23:25 Potassium 3.9 mmol/L (3.6-5.0) 12/02/20 23:25 Chloride 97.3 mmol/L (98-107) L 12/02/20 23:25 Carbon Dioxide 25 mmol/L (22-30) 12/02/20 23:25 Anion Gap 17 mmol/L 12/02/20 23:25 BUN 13 mg/dL (7-17) 12/02/20 23:25 Creatinine 0.8 mg/dL (0.6-1.2) 12/02/20 23:25 Estimated GFR > 60 ml/min 12/02/20 23:25 BUN/Creatinine Ratio 16 % 12/02/20 23:25 Glucose 105 mg/dL (65-100) H 12/02/20 23:25 POC Glucose 77 mg/dL (70-105) 12/15/20 08:34 Hemoglobin A1c 6.1 % (4-6) H 12/02/20 23:25 Calcium 9.8 mg/dL (8.4-10.2) 12/02/20 23:25 Total Bilirubin 0.20 mg/dL (0.1-1.2) 12/02/20 23:25 AST 19 units/L (5-40) 12/02/20 23:25 ALT 11 units/L (7-56) 12/02/20 23:25 Alkaline Phosphatase 76 units/L (35-129) 12/02/20 23:25 Total Protein 7.3 g/dL (6.3-8.2) 12/02/20 23:25 Albumin 3.9 g/dL (3.9-5) 12/02/20 23:25 Albumin/Globulin Ratio 1.1 % 12/02/20 23:25 Triglycerides 88 mg/dL (2-149) 12/02/20 23:25 Cholesterol 156 mg/dL (50-199) 12/02/20 23:25 LDL Cholesterol Direct 100 mg/dL (50-130) 12/02/20 23:25 HDL Cholesterol 51 mg/dL (40-59) 12/02/20 23:25 Cholesterol/HDL Ratio 3.05 % 12/02/20 23:25 TSH 1.460 mlU/mL (0.270-4.200) 12/02/20 23:25 Valproic Acid 70.9 ug/mL (50-100) 12/09/20 05:42 Last Vital Signs Temp 98.5 F 12/15/20 19:24 Pulse 70 12/15/20 19:24 Resp 20 12/15/20 19:24 BP 136/53 12/15/20 19:24 Pulse Ox 95 12/15/20 19:24
[2020-12-16] MEDS: BUDESONIDE 0.5 MG/2 ML NEBU IH SCH (08:16)
[2020-12-16] MEDS: ARFORMOTEROL 15 MCG/2 ML NEBU IH SCH (08:16)
[2020-12-16] MEDS: ARIPiprazole 5 MG TAB PO SCH (10:59)
[2020-12-16] MEDS: VENLAFAXINE XR 75 MG CAP PO SCH (10:59)
[2020-12-16] MEDS: GABAPENTIN 300 MG CAP PO SCH ×2 (10:59→21:25)
[2020-12-16] MEDS: amLODIPine 10 MG TAB PO SCH (11:00)
[2020-12-16] MEDS: MULTIVITAMINS ,THERAPEUTIC TAB PO SCH (11:01)
[2020-12-16] MEDS: LOSARTAN 50 MG TAB PO SCH (11:02)
[2020-12-16] MEDS: VALPROIC ACID 250 MG CAP PO SCH ×3 (11:06→21:25)
[2020-12-16] MEDS ORDERED: DEXTROSE/DEXTRIN/MALTOSE 24 GM CARB PER 31 GM TUBE ONE (11:48)
[2020-12-16] MEDS ORDERED: DEXTROSE/DEXTRIN/MALTOSE 24 GM CARB PER 31 GM TUBE PO SCH (13:30)
[2020-12-16] MEDS: oxyCODONE /ACETAMINOPHEN 5-325MG TAB PO PRN (20:33)
[2020-12-16] MEDS: MIRTAZAPINE 15 MG TAB PO SCH (21:25)
[2020-12-16] MEDS: DONEPEZIL 5 MG TAB PO SCH (21:25)
[2020-12-16] MEDS: lamoTRIgine 100 MG TAB PO SCH (21:25)
[2020-12-17] MEDS: ARFORMOTEROL 15 MCG/2 ML NEBU IH SCH ×2 (03:07→08:22)
[2020-12-17] MEDS: BUDESONIDE 0.5 MG/2 ML NEBU IH SCH ×2 (03:08→08:22)
--- NOTE | 2020-12-17 07:51 | Progress Note ---
Subjective Date of service: 12/17/20 Principal diagnosis: MDD Subjective Comment: Psych Nurse: pt spent the evening in activity room sitting quietly to herself, flat affect, depressed mood, sad, she wanted to discharge home, pt is able to make needs known, medication compliant, consumed 100% of snack, denies si/hi, denies a/v/h, 02 flowing at 2litres n/c; no distress noted, will continue to monitor for safety. Psych Progress Patient seen this a.m. patient reports she is because she wants to go back home but seems like family does not want her home, patient was given some counseling about positive outlook and behavior. Patient informed that the station comes to change it that the health and social care teacher is in conversation with the family, patient states thank you. Patient denies any suicidal homicidal ideation at this moment. Reason to continue inpatient psychiatric hospitalization: Pending residential placement REVIEW OF SYSTEMS Constitutional: Negative for weight loss ENT: Negative for stridor Respiratory: Negative for cough or hemoptysis All other systems reviewed and are negative MENTAL STATUS EXAMINATION General Appearance and Behavior: Age appropriate, good hygiene, wearing appropriate clothes,, good eye contact Cooperation: Participating/engaged, but Guarded Psychomotor Behavior: Psychomotor normal Mood: "not too good" Affect and affective range: congruent with mood, tearfu; Thought Process:logical Thought Content: none Speech: Normal rate, volume and rhythm Intellectual Functioning: Average Suicidal Ideation: Denies Homicidal Ideation: Denies HI Impulse Control: Impaired Insight and Judgment: Limited insight and judgment Memory: Normal Attention: Normal Orientation: Alert, oriented. Assessment and Plan (1) MDD (major depressive disorder) Current Visit: Yes Status: Acute F32.9 Treatment Plan Patient admitted for inpatient psychiatric evaluation, medication adjustment a nd close monitoring The patient's behavior, mood, sleep and appetite will be closely monitored. Patient enrolled in individual and group therapeutic sessions and encouraged to attend. Patient provided with a safe and structured environment. Patient's physical health needs will be addressed by the Hospitalist. Hospitalist Consulted Labs including CBC, CMP, Lipid profile and Hemoglobin A1C levels ordered for baseline reference Valproic level 70.9 Social Assessment will be completed and the [employer] Controls Engineer will work with patient and family to ensure a suitable and safe disposition Medication adjustment will be made as clinically indicated Continue current medical Usual Wellness [place]/Preservation: - Start Trazodone 50 mg po QHS & 50 mg po QHS PRN between 10 PM & 2 AM for insomnia - Start Melatonin 5 mg po QHS to promote circadian rhythm - Start [place]-3 for brain health, reduce impulsivity, and as adjunctive treatment for mood disorder, continue upon discharge given overall benefits. - Start B1 prophylaxis with 200 mg po for 5 days The patient agreed on the treatment plan, understood the risk, benefit, alternative treatment, potential consequence of no treatment, and gave informed consent. Estimated days: 1 Post hospital care: primary care provider, psychiatric provider . Assessment and Plan - Psychiatric problem (1) MDD (major depressive disorder) Current Visit: Yes Status: Acute F32.9 Treatment Plan Psychotherapy support, Patient switched to Remeron to improve sleep, Patient admitted for inpatient psychiatric evaluation, medication adjustment and close monitoring The patient's behavior, mood, sleep and appetite will be closely monitored. Patient enrolled in individual and group therapeutic sessions and encouraged to attend. Patient provided with a safe and structured environment. Patient's physical health needs will be addressed by the Hospitalist. Hospitalist Consulted Labs including CBC, CMP, Lipid profile and Hemoglobin A1C levels ordered for baseline reference Social Assessment will be completed and the [employer] Controls Engineer will work with patient and family to ensure a suitable and safe disposition Medication adjustment will be made as clinically indicated Usual Wellness Moravian/Preservation: - Start Trazodone 50 mg po QHS & 50 mg po QHS PRN between 10 PM & 2 AM for insomnia - Start Melatonin 5 mg po QHS to promote circadian rhythm - Start [place]-3 for brain health, reduce impulsivity, and as adjunctive treatment for mood disorder, continue upon discharge given overall benefits. - Start B1 prophylaxis with 200 mg po for 5 days The patient agreed on the treatment plan, understood the risk, benefit, alternative treatment, potential consequence of no treatment, and gave informed consent. Initial Certification Inpatient psych services: I certify that the inpatient psychiatric services are required for treatment that could reasonably be expected to improve the patient's condition. Estimated days: 3 Post hospital care: primary care provider, psychiatric provider Assessment and Plan - Patient Problems (1) MDD (major depressive disorder) Current Visit: Yes Status: Acute Medications and Allergies Allergies Allergy/AdvReac Type Severity Reaction Status Date / Time codeine Allergy Unknown Verified 12/01/20 22:03 morphine Allergy Unknown Verified 12/01/20 22:06 NSAIDS (Non-Steroidal Allergy Unknown Verified 12/01/20 22:06 Anti-Inflamma Home Medications Medication Instructions Recorded Confirmed Last Taken Type ARIPiprazole [Abilify] 20 mg PO HS 12/01/20 12/01/20 Unknown History Albuterol Sulfate [Proventil Hfa] 90 mcg IH Q6H 12/01/20 12/01/20 Unknown History Benztropine [Cogentin] 2 mg PO BID 12/01/20 12/01/20 Unknown History Budesonide-Formoterol 160-4.5 2 puff INHALATION BID 12/01/20 12/01/20 Unknown History Citalopram [Celexa] 20 mg PO HS 12/01/20 12/01/20 Unknown History Fluticasone/Umeclidin/Vilanter 1 puff INHALATION DAILY 12/01/20 12/01/20 Unknown History Gabapentin 300 mg PO BID 12/01/20 12/01/20 Unknown History Levalbuterol HCl [Xopenex] 1 ampul TID 12/01/20 12/01/20 Unknown History Losartan-Hctz 100-25 mg Tab 1 tab PO DAILY 12/01/20 12/01/20 Unknown History Mirabegron [Myrbetriq] 50 mg PO QDAY 12/01/20 12/01/20 Unknown History Multivitamin Tab [Multiple Vitamin 1 tab PO DAILY 12/01/20 12/01/20 Unknown History TAB (Theragran)] amLODIPine [Norvasc] 10 mg PO DAILY 12/01/20 12/01/20 Unknown History donepeziL [Aricept] 5 mg PO HS 12/01/20 12/01/20 Unknown History hydrOXYzine HCL [Atarax] 1 tab PO Q8H PRN 12/01/20 12/01/20 Unknown History lamoTRIgine [LaMICtal] 200 mg PO HS 12/01/20 12/01/20 Unknown History oxyCODONE /ACETAMINOPHEN [Percocet 1 tab PO Q6HR PRN 12/01/20 12/01/20 Unknown History 5/325] Active Meds: Active Medications Acetaminophen (Acetaminophen 325 Mg Tab) 650 mg PO Q6H PRN PRN Reason: Pain, Mild (1-3) Last Admin: 12/15/20 11:05 Dose: 650 mg Documented by: Albuterol (Albuterol 2.5 Mg/3 Ml Nebu) 2.5 mg IH Q4HRT PRN PRN Reason: Shortness Of Breath Amlodipine Besylate (Amlodipine 10 Mg Tab) 10 mg PO DAILY [facility] Last Admin: 12/16/20 11:00 Dose: 10 mg Documented by: Arformoterol Tartrate (Arformoterol 15 Mcg/2 Ml Nebu) 15 mcg IH Q12HRT [facility] Last Admin: 12/17/20 03:07 Dose: Not Given Documented by: Aripiprazole (Aripiprazole 5 Mg Tab) 5 mg PO QDAY [facility] Last Admin: 12/16/20 10:59 Dose: 5 mg Documented by: Budesonide (Budesonide 0.5 Mg/2 Ml Nebu) 0.5 mg IH Q12HRT [facility] Last Admin: 12/17/20 03:08 Dose: Not Given Documented by: Donepezil HCl (Donepezil 5 Mg Tab) 5 mg PO [facility] Last Admin: 12/16/20 21:25 Dose: 5 mg Documented by: Gabapentin (Gabapentin 300 Mg Cap) 300 mg PO BID [facility] Last Admin: 12/16/20 21:25 Dose: 300 mg Documented by: Haloperidol Lactate (Haloperidol Lactate 5 Mg/1 Ml Inj) 5 mg IM Q6H PRN PRN Reason: Agitation Last Admin: 12/06/20 01:49 Dose: 5 mg Documented by: Hydroxyzine Pamoate (Hydroxyzine Pamoate 25 Mg Cap) 25 mg PO BID PRN PRN Reason: Anxiety Lamotrigine (Lamotrigine 100 Mg Tab) 200 mg PO [facility] Last Admin: 12/16/20 21:25 Dose: 200 mg Documented by: Lorazepam (Lorazepam 2 Mg/Ml Vial) 2 mg IM Q6H PRN PRN Reason: Agitation Last Admin: 12/06/20 01:49 Dose: 2 mg Documented by: Losartan Potassium (Losartan 50 Mg Tab) 100 mg PO QDAY [facility] Last Admin: 12/16/20 11:02 Dose: Not Given Documented by: Melatonin (Melatonin 5 Mg Tab) 5 mg PO QHS PRN PRN Reason: Sleep Last Admin: 12/12/20 21:24 Dose: 5 mg Documented by: Mirtazapine (Mirtazapine 15 Mg Tab) 15 mg PO QHS [facility] Last Admin: 12/16/20 21:25 Dose: 15 mg Documented by: Multivitamins (Multivitamins ,Therapeutic Tab) 1 each PO DAILY [facility] Last Admin: 12/16/20 11:01 Dose: Not Given Documented by: Ondansetron HCl (Ondansetron 4 Mg Odt Tab) 4 mg PO Q8H PRN PRN Reason: Nausea And Vomiting Last Admin: 12/05/20 07:36 Dose: 4 mg Documented by: Oxycodone/Acetaminophen (Oxycodone /Acetaminophen 5-325mg Tab) 1 tab PO Q6HR PRN PRN Reason: PAIN Last Admin: 12/16/20 20:33 Dose: 1 tab Documented by: Senna/Docusate Sodium (Sennosides/Docusate Sodium 8.6/50 Mg Tab) 2 tab PO Q12H PRN PRN Reason: Laxative Effect Valproic Acid (Valproic Acid 250 Mg Cap) 500 mg PO QHS [facility] Last Admin: 12/16/20 21:25 Dose: 500 mg Documented by: Valproic Acid (Valproic Acid 250 Mg Cap) 250 mg PO 0800,1400 [facility] Last Admin: 12/16/20 14:24 Dose: Not Given Documented by: Venlafaxine HCl (Venlafaxine Xr 75 Mg Cap) 150 mg PO QDAY [facility] Last Admin: 12/16/20 10:59 Dose: 150 mg Documented by: Results - Results Labs/Vitals: Laboratory Last Values WBC 6.4 K/mm3 (4.5-11.0) 12/02/20 23:25 RBC 4.09 M/mm3 (3.65-5.03) 12/02/20 23:25 Hgb 11.6 gm/dl (10.1-14.3) 12/02/20 23:25 Hct 35.5 % (30.3-42.9) 12/02/20 23:25 MCV 87 fl (79-97) 12/02/20 23:25 MCH 28 pg (28-32) 12/02/20 23:25 MCHC 33 % (30-34) 12/02/20 23:25 RDW 15.7 % (13.2-15.2) H 12/02/20 23:25 Plt Count 296 K/mm3 (140-440) 12/02/20 23:25 Lymph % (Auto) 22.4 % (13.4-35.0) 12/02/20 23:25 [place] % (Auto) 11.0 % (0.0-7.3) H 12/02/20 23:25 Eos % (Auto) 1.3 % (0.0-4.3) 12/02/20 23:25 Baso % (Auto) 0.3 % (0.0-1.8) 12/02/20 23:25 Lymph # (Auto) 1.4 K/mm3 (1.2-5.4) 12/02/20 23:25 [place] # (Auto) 0.7 K/mm3 (0.0-0.8) 12/02/20 23:25 Eos # (Auto) 0.1 K/mm3 (0.0-0.4) 12/02/20 23:25 Baso # (Auto) 0.0 K/mm3 (0.0-0.1) 12/02/20 23:25 Seg Neutrophils % 65.0 % (40.0-70.0) 12/02/20 23:25 Seg Neutrophils # 4.1 K/mm3 (1.8-7.7) 12/02/20 23:25 Sodium 135 mmol/L (137-145) L 12/02/20 23:25 Potassium 3.9 mmol/L (3.6-5.0) 12/02/20 23:25 Chloride 97.3 mmol/L (98-107) L 12/02/20 23:25 Carbon Dioxide 25 mmol/L (22-30) 12/02/20 23:25 Anion Gap 17 mmol/L 12/02/20 23:25 BUN 13 mg/dL (7-17) 12/02/20 23:25 Creatinine 0.8 mg/dL (0.6-1.2) 12/02/20 23:25 Estimated GFR > 60 ml/min 12/02/20 23:25 BUN/Creatinine Ratio 16 % 12/02/20 23:25 Glucose 105 mg/dL (65-100) H 12/02/20 23:25 POC Glucose 107 mg/dL (70-105) H 12/16/20 19:41 Hemoglobin A1c 6.1 % (4-6) H 12/02/20 23:25 Calcium 9.8 mg/dL (8.4-10.2) 12/02/20 23:25 Total Bilirubin 0.20 mg/dL (0.1-1.2) 12/02/20 23:25 AST 19 units/L (5-40) 12/02/20 23:25 ALT 11 units/L (7-56) 12/02/20 23:25 Alkaline Phosphatase 76 units/L (35-129) 12/02/20 23:25 Total Protein 7.3 g/dL (6.3-8.2) 12/02/20 23:25 Albumin 3.9 g/dL (3.9-5) 12/02/20 23:25 Albumin/Globulin Ratio 1.1 % 12/02/20 23:25 Triglycerides 88 mg/dL (2-149) 12/02/20 23:25 Cholesterol 156 mg/dL (50-199) 12/02/20 23:25 LDL Cholesterol Direct 100 mg/dL (50-130) 12/02/20 23:25 HDL Cholesterol 51 mg/dL (40-59) 12/02/20 23:25 Cholesterol/HDL Ratio 3.05 % 12/02/20 23:25 TSH 1.460 mlU/mL (0.270-4.200) 12/02/20 23:25 Valproic Acid 70.9 ug/mL (50-100) 12/09/20 05:42 Last Vital Signs Temp 99.0 F 12/16/20 22:00 Pulse 77 12/16/20 22:00 Resp 14 12/16/20 22:00 BP 152/64 12/16/20 22:00 Pulse Ox 96 12/16/20 19:21
--- NOTE | 2020-12-17 09:03 | Discharge Summary ---
Providers - Providers Date of Admission: 12/02/20 00:34 Date of discharge: 12/17/20 Attending physician: VIKAS GIBBONS MD 12/01/20 22:08 Consult to Physician [CONS] Routine Comment: Consulting Provider: EVELIA STEWARD Physician Instructions: Reason For Exam: H&P for new pt. 12/04/20 16:11 Consult to Dietitian/Nutrition [CONS] Stat Physician Instructions: Reason For Exam: pt is having trouble chewing r/t dentures Reason for Consult: Diet education Hospitalization Reason for admission: Danger to self Condition: Good Hospital course: The patient was provided inpatient psychiatric treatment with safe and supportive environment, group/individual therapy, psychiatric medication, medication adjustment, adverse effect monitor, medical evaluation, medical treatment, social service assessment, social support meeting, placement assessment and psycho-education. The patients mood, cognition, behavior, motivation, compliance to treatment and appreciation on family/social support are improved and stabilized. At the time of discharge, the patient had no suicidal ideas, no homicidal ideas, no aggressive thoughts, no endangering behavior and no debilitating adverse effects. The patient agareed on the treatment plan, understood the risk, benefit, alternative treatment, potential consequence of no treatment, and gave informed consent. Disposition: DC-01 TO HOME OR SELFCARE Allergies/Adverse Reactions: Allergies codeine Allergy (Verified 12/01/20 22:03) Unknown morphine Allergy (Verified 12/01/20 22:06) Unknown NSAIDS (Non-Steroidal Anti-Inflamma Allergy (Verified 12/01/20 22:06) Unknown Vital Signs: Last Vital Signs Temp 99.0 F 12/16/20 22:00 Pulse 69 12/17/20 08:36 Resp 18 12/17/20 08:36 BP 152/64 12/16/20 22:00 Pulse Ox 96 12/17/20 08:30 Last Lab: Laboratory Last Values WBC 6.4 K/mm3 (4.5-11.0) 12/02/20 23:25 RBC 4.09 M/mm3 (3.65-5.03) 12/02/20 23:25 Hgb 11.6 gm/dl (10.1-14.3) 12/02/20 23:25 Hct 35.5 % (30.3-42.9) 12/02/20 23:25 MCV 87 fl (79-97) 12/02/20 23: MCH 28 pg (28-32) 12/02/20 23:25 MCHC 33 % (30-34) 12/02/20 23: RDW 15.7 % (13.2-15.2) H 12/02/20 23:25 Plt Count 296 K/mm3 (140-440) 12/02/20 23: Lymph % (Auto) 22.4 % (13.4-35.0) 12/02/20: [place] % (Auto) 11.0 % (0.0-7.3) H 12/02/20: Eos % (Auto) 1.3 % (0.0-4.3) 12/02/20: Baso % (Auto) 0.3 % (0.0-1.8) 12/02/20: Lymph # (Auto) 1.4 K/mm3 (1.2-5.4) 12/02/20: [place] # (Auto) 0.7 K/mm3 (0.0-0.8) 12/02/20: Eos # (Auto) 0.1 K/mm3 (0.0-0.4) 12/02/20: Baso # (Auto) 0.0 K/mm3 (0.0-0.1) 12/02/20: Seg Neutrophils % 65.0 % (40.0-70.0) 12/02/20: Seg Neutrophils # 4.1 K/mm3 (1.8-7.7) 12/02/20 23:25 Sodium 135 mmol/L (137-145) L 12/02/20: Potassium 3.9 mmol/L (3.6-5.0) 12/02/20: Chloride 97.3 mmol/L (98-107) L 12/02/20: Carbon Dioxide 25 mmol/L (22-30) 12/02/20 23:25 Anion Gap 17 mmol/L 12/02/20: BUN 13 mg/dL (7-17) 12/02/20 23: Creatinine 0.8 mg/dL (0.6-1.2) 12/02/20 23: Estimated GFR > 60 ml/min 12/02/20 23:25 BUN/Creatinine Ratio 16 % 12/02/20 23:25 Glucose 105 mg/dL (65-100) H 12/02/20 23:25 POC Glucose 107 mg/dL (70-105) H 12/16/20 19:41 Hemoglobin A1c 6.1 % (4-6) H 12/02/20 23:25 Calcium 9.8 mg/dL (8.4-10.2) 12/02/20 23:25 Total Bilirubin 0.20 mg/dL (0.1-1.2) 12/02/20 23:25 AST 19 units/L (5-40) 12/02/20 23:25 ALT 11 units/L (7-56) 12/02/20 23:25 Alkaline Phosphatase 76 units/L (35-129) 12/02/20 23:25 Total Protein 7.3 g/dL (6.3-8.2) 12/02/20 23:25 Albumin 3.9 g/dL (3.9-5) 12/02/20 23:25 Albumin/Globulin Ratio 1.1 % 12/02/20 23:25 Triglycerides 88 mg/dL (2-149) 12/02/20 23:25 Cholesterol 156 mg/dL (50-199) 12/02/20 23:25 LDL Cholesterol Direct 100 mg/dL (50-130) 12/02/20 23:25 HDL Cholesterol 51 mg/dL (40-59) 12/02/20 23:25 Cholesterol/HDL Ratio 3.05 % 12/02/20 23:25 TSH 1.460 mlU/mL (0.270-4.200) 12/02/20 23:25 Valproic Acid 70.9 ug/mL (50-100) 12/09/20 05:42 - Discharge Diagnoses (1) MDD (major depressive disorder) Status: Acute Core Measure Documentation - Palliative Care Palliative Care/ Comfort Measures: Not Applicable - Core Measures Any of the following diagnoses?: none Exam - Constitutional Vitals: Temp Pulse Resp BP Pulse Ox 99.0 F 69 18 152/64 96 12/16/20 22:00 12/17/20 08:36 12/17/20 08:36 12/16/20 22:00 12/17/20 08:30 Plan Care Plan Goals: Maintain good and stable mental health. Plan of Treatment: The patient should be compliant with medications, not to use drugs and not to drink alcohol. The patient understands that if suicidal ideas, homicidal ideas, or any endangering thoughts arise, the patient should immediately seek for emergent assistance including but not limited to crisis hot line and emergency room. Follow up with outpatient Psychiatrist and PCP within 7 - 14 days of discharge. Follow up with: BEN OLIVO MD [Other] - 7 Days Prescriptions: ARIPiprazole 5 mg PO QDAY #30 tablet Venlafaxine Xr [Effexor XR] 150 mg PO QDAY #30 capsule Gabapentin 300 mg PO BID #60
[2020-12-17 10:39] VITALS: BP 145/74
[2020-12-17] MEDS: ARIPiprazole 5 MG TAB PO SCH (10:39)
[2020-12-17] MEDS: VENLAFAXINE XR 75 MG CAP PO SCH (10:39)
[2020-12-17] MEDS: VALPROIC ACID 250 MG CAP PO SCH (10:40)
[2020-12-17] MEDS: amLODIPine 10 MG TAB PO SCH (10:40)
[2020-12-17] MEDS: LOSARTAN 50 MG TAB PO SCH (10:40)
[2020-12-17] MEDS: oxyCODONE /ACETAMINOPHEN 5-325MG TAB PO PRN (10:41)
[2020-12-17] MEDS: GABAPENTIN 300 MG CAP PO SCH (10:42)
[2020-12-17] MEDS: MULTIVITAMINS ,THERAPEUTIC TAB PO SCH (10:43)
== END 2020-12-17 13:05 | disposition home or self-care (01) | DRG 881 ==
LOC: 3A 21:46 → UNDOADMIN 21:46 → 5A 12-02 00:34
PROVIDERS: ADMIT Psychiatry & Neurology Psychiatry; ATTEND Psychiatry & Neurology Psychiatry
DX: F32.9 Major depressive disorder, single episode, unspecified (principal); N39.0 Urinary tract infection, site not specified; F01.51 Vascular dementia, unspecified severity, with behavioral disturbance; E11.9 Type 2 diabetes mellitus without complications; I10 Essential (primary) hypertension; F41.9 Anxiety disorder, unspecified; K21.9 Gastro-esophageal reflux disease without esophagitis; J44.9 Chronic obstructive pulmonary disease, unspecified; G47.30 Sleep apnea, unspecified; I67.2 Cerebral atherosclerosis; Z88.5 Allergy status to narcotic agent; Z88.6 Allergy status to analgesic agent; Z88.8 Allergy status to other drugs, medicaments and biological substances; Z90.710 Acquired absence of both cervix and uterus; Z83.3 Family history of diabetes mellitus; Z82.49 Family history of ischemic heart disease and other diseases of the circulatory system
CPT/HCPCS: 36415; 80053; 80061; 80164; 82962; 83036; 84443; 85025; 94640; 94760; G0378; J1630; J2060; Q0162